=== PATIENT | male | born 1960 | race Caucasian/White ===

== ENCOUNTER → 2021-11-09 16:49 | Outpatient (CLI) | payer BC, SELFPAY ==
--- NOTE | ~2021-11-09 | MR_ITS ---
EXAMINATION: MR knee LT wo con DATE: 11/09/2021 17:56 INDICATION: Unilateral primary osteoarthritis of the left knee with worsening chronic left knee pain TECHNIQUE: Magnetic resonance imaging (MRI) of the left knee was performed without intravenous contra st. Sequences included coronal PD-weighted FSE, coronal PD-weighted FS FSE, sagittal T2-weighted FSE , sagittal PD-weighted FS FSE and axial PD weighted fat saturated FSE. COMPARISON: None. FINDINGS: Medial compartment: Complex tear at the posterior horn of the medial meniscus which includes a full-thickness radial comp onent near the posterior horn and longitudinal horizontal component extending to near the free edge i n the more medial posterior horn. Partial-thickness cartilage loss with mild chondral surface regular ity along the central to medial aspect of the medial tibial plateau with mild subarticular edema boy g the medial rim. Additional partial thickness cartilage loss with chondral surface irregularity and deep fissuring along the weightbearing medial femoral condyle with subarticular edema along the media l margin. Small region of low signal intensity likely eburnation along the medial margin of the anter ior weightbearing medial femoral condyle. Lateral compartment: Lateral meniscus is normal. Articular cartilage is normal. Patellofemoral compartment: Deep chondral fissuring involving greater than 50% the cartilage thickness without degenerative subch ondral changes along the medial patellar facet. Small region of deep chondral ulceration without dege nerative subchondral changes at the inferior aspect of the trochlear groove and inferomedial aspect o f the lateral trochlea. Ligaments and tendons: Anterior and posterior cruciate ligaments are normal. The medial collateral ligament and fibular barbara ateral ligament complex are normal. Mild distal quadriceps tendinopathy with small enthesophytes at i ts patellar insertion. Patellar tendon is normal. The visualized medial and lateral hamstring tendons as well as the iliotibial band are normal. Fluid: Moderate-sized knee joint effusion. There is a medial plical band which extends slightly across the m edial rim of the trochlea. No loose osteochondral bodies identified. Subcutaneous edema surrounding a 2.8 x 4.5 x 1.0 cm bursal fluid collection with mild internal synovitis overlying the patellar inser tion of the patellar tendon consistent with moderate prepatellar bursitis. Osseous/other: Bone alignment is normal. No fracture or pathologic marrow replacing process. IMPRESSION: 1. Complex tear at the posterior horn of the medial meniscus including a full-thickness radial compon ent near the posterior root. 2. Mild osteoarthritis with regions of moderate and high-grade chondromalacia in the medial and arredondo lofemoral compartments. 3. Moderate prepatellar bursitis. 4. Moderate-sized knee joint effusion. 5. Medial plical band which crosses the medial rim of the trochlea. Reviewed, dictated and finalized at location B. IMPRESSION: 1. Complex tear at the posterior horn of the medial meniscus including a full-t hickness radial component near the posterior root. 2. Mild osteoarthritis with regions of moderate and high-grade chondromalacia i n the medial and patellofemoral compartments. 3. Moderate prepatellar bursitis. 4. Moderate-sized knee joint effusion. 5. Medial plical band which crosses the medial rim of the trochlea.
== END ==
PROVIDERS: PCP Family Medicine; Visit Provider Orthopaedic Surgery
DX: M17.12 Unilateral primary osteoarthritis, left knee (principal); M25.462 Effusion, left knee; S83.232A Complex tear of medial meniscus, current injury, left knee, initial encounter; X58.XXXA Exposure to other specified factors, initial encounter; M70.42 Prepatellar bursitis, left knee
CPT/HCPCS: 73721

== ENCOUNTER 2021-11-18 10:15 | Outpatient (CLI) | payer BC, SELFPAY ==
--- NOTE | 2021-11-18 14:58 | ECG_ITS ---
Measurements Intervals [place] Rate: 61 P: 58 NE: 155 QRS: -8 QRSD: 110 T: 33 QT: 396 QTc: 401 Interpretive Statements SINUS RHYTHM INDETERMINATE AXIS BORDERLINE ECG NO PREVIOUS ECG AVAILABLE FOR COMPARISON Electronically Signed On 11-18-2021 15:58:11 CDT by Braden Marroquin M.D.
== END 2021-11-18 10:16 | disposition home or self-care (01) ==
PROVIDERS: PCP Family Medicine; Visit Provider Orthopaedic Surgery
DX: E78.5 Hyperlipidemia, unspecified (principal); Z01.818 Encounter for other preprocedural examination
CPT/HCPCS: 93005

== ENCOUNTER 2021-11-25 01:14 | Day surgery (SDC) | payer BC, SELFPAY ==
[2021-11-18 09:45] VITALS: BMI 33.5
--- NOTE | 2021-11-18 09:55 | PC.NURSE ---
Report to the Outpatient Waiting Room, entrance under the green pavilion located off [facility], at time 11:00 on date 11/25/21. OR Time: 1:00. - You and your visitor will be asked a series of questions to screen for COVID 19 for your protection. - A mask is required within the hospital. One visitor will be allowed to accompany the patient into the hospital. Patients visitor will be instructed to remain with patient at all times or leave the building. We will allow the visitor to come back to the postoperative area when patient is ready. Preoperative COVID Testing Requirements: TO BRING COPY OF CARD No COVID Test needed if: (proof is required; if not received patient will have Rapid Test prior to entry) - Patient has received COVID Vaccine at least 14 days prior to procedure date or - Patient has positive COVID test result within last 90 days of surgery date. COVID Test needed if above criteria is not met Patients may have clear liquids (water, carbonated beverages, clear teas, apple juice) until 3 hours prior to surgery (10:00) with a maximum of 20 ounces. - No food from midnight until time of surgery Take the following medications with a SIP of water the morning of surgery: NONE Medications to discontinue per physician: VITAMINS/SUPPLEMENTS Date to take last dose: 11/21/21 STOP TAKING ASPIRIN 11/[address] WU Please no make-up, nail latvian, hairspray, perfume, deodorant, or body powder the day of surgery. No jewelry (including any body piercings) or valuables the day of surgery, leave them at home. Please take a shower or bath the night before, or the morning of, surgery with an antibacterial soap. Wear comfortable, loose fitting clothing. - Jewelry must be removed prior to entering the operating room. Rings and piercings that are not removed may be cut off. - The hospital will not accept responsibility for valuables. - Please leave all valuables, including medications, at home the day of surgery. If you are going home after surgery, a licensed transfer driver must drive you home. - NO public transportation without another adult. - We recommend that an adult stay with you for 24 hours following discharge. - We also recommend that you do not drive, make important decision, drink alcoholic beverages, or take any drugs that were not prescribed by your health care provider for at least 24 hours after your discharge time. Follow any additional instructions given to you from your surgeon. Telephone instructions given to MALLIKA BRANCH and asked if any additional questions and then verbalized understanding. Patient advised to call surgeon office or pre surgery nurse liaison [phone] if any additional questions.
--- NOTE | 2021-11-24 13:05 | WPDANESEPPF ---
Anes - Initial Pre Proc Eval Procedure: Operation Date: 11/25/21 13:00 Proposed Procedures p Left Knee Arthroscopic Partial Medial Meniscectomy - Yvon Hall MD Date/Time: 11/24/21 13:05 Surgeon: Yvon Hall MD Pre Op Diagnosis: left knee medial meniscus tear Patient Data Age: 61 Gender: M Height: 1.98 m Weight: 131.54 kg Allergies Allergy/AdvReac Type Severity Reaction Status Date / Time neomycin Allergy Severe Swelling Verified 11/18/21 09:42 of the Eye ezetimibe Allergy Unknown muscle and Verified 11/18/21 09:42 leg aches, dizziness Home Medications Medication Instructions Recorded Confirmed Type aspirin 81 mg tablet,delayed 81 mg PO DAILY 07/07/19 11/25/21 History release niacin 1,000 mg tablet,extended 500 mg PO .COMPLEX tablet 09/07/20 11/25/21 History release simvastatin 20 mg tablet See Rx Instructions .ROUTE 02/14/21 11/25/21 Rx .COMPLEX #90 tablet omega-3 acid ethyl esters 1 gram See Rx Instructions .ROUTE 04/18/21 11/25/21 Rx capsule .COMPLEX #360 cap needle (disp) 23 gauge 23 gauge x See Rx Instructions .ROUTE 07/05/21 11/18/21 Rx 1 .COMPLEX #7 ea syringe with needle 3 mL 21 gauge See Rx Instructions .ROUTE 08/25/21 11/18/21 Rx x 1 .COMPLEX #26 ea testosterone cypionate 200 mg/mL 100 mg IM .COMPLEX #3 ml 09/02/21 11/25/21 Rx intramuscular oil antiarthritic combination no.2 900 900 mg PO DAILY 11/11/21 11/25/21 History mg tablet Patient hx anesthesia problems: none Family hx anesthesia problems: none Results Review: All pre-operative results and documents have been reviewed as part of the pre-operative evaluation. [facility] Past Medical History Medical History Arthritis of left hip Benign labile hypertension Elevated prolactin level Enlarged prostate without lower urinary tract symptoms (luts) Gastro-esophageal reflux disease without esophagitis Hypogonadism in male Mixed hyperlipidemia Surgical History Surgical History H/O adenoidectomy H/O eye surgery H/O medial meniscus repair of right knee Hx of tonsillectomy Family History Family History Father Diabetes mellitus Hypertension Family history of elevated blood lipids Grandparent Diabetes mellitus Family history of cardiovascular disease Cerebrovascular accident Mother Hypertension Family history of cardiovascular disease Acute myocardial infarction Family history of Alzheimer's disease Family history of coronary artery disease Social History Social History Smoking packs per day: 1 Smoking cigarettes per day: 20.0 Years smoked: 10 Smoking pack-years: 10.00 Smoking status: Former smoker Tobacco type: cigarettes Smoking end date: 05/06/95 Alcohol intake: current Drinks per week: 2 Substance use: never Substance use type: does not use Living arrangements: with family Spiritual care concerns: No Anes - Eval Final PreProcedure Day of Procedure 11/24/21 13:05 Patient weight: obese Heart: regular rate and rhythm Lungs: clear to auscultation and normal air movement Airway: Mallampati scale class 1 Neurological: alert and oriented Last oral intake: >/= 8 hours ASA classification: III Emergent: no Anesthetic plan: proceed Anesthesia type and monitoring: general LMA and standard monitoring Results Review: All pre-operative results and documents have been reviewed as part of the pre-operative evaluation. Informed Consent: The patient's anesthetic plan and its attendant risks and benefits were discussed with the patient/family/POA. Questions were solicited and answers provided to the satisfaction of the patient/family/POA.
[2021-11-25] VITALS (7 sets, daily range): BP systolic 124–144; BP diastolic 77–93; PULSE 67–92; RESP 12–16; TEMP 36.2; O2SAT 96–100
[2021-11-25] MEDS: ACETAMINOPHEN 500 MG TABLET 1000 MG PO (11:21)
[2021-11-25] MEDS: LACTATED RINGERS 1,000 ML 30 ML IV CONT ×2 (11:52→14:18)
[2021-11-25] MEDS: KETOROLAC 15 MG/ML VIAL (*BKC) IV PUSH (11:53)
--- NOTE | 2021-11-25 13:07 | P.OP_ITS ---
Procedure Note - Detailed Date of Procedure 11/25/21 Pre-op Diagnosis Left knee medial meniscus tear Post-op Diagnosis Same Procedure Performed Arthroscopic partial medial meniscectomy, left knee. Surgeon Yvon Hall MD [employer] Reactor Engineer Shilpa Chaudhry PA-C Anesthesia General Findings Significant posterior horn meniscus tear with a large radial component. Consistent with the MRI findings. Mild arthritis in the medial compartment. Lateral compartment and ACL normal. Patellofemoral moderate chondromalacia. Medial femur chondromalacia grade 2, medial tibia grade 2. Lateral femur chondromalacia grade 0, lateral tibia grade 0. Patellar grade 2, trochlea grade 2/3. Description of Procedure The patient was identified and the surgical site confirmed and signed in the preoperative holding area. Antibiotics were started per protocol. He was brought to the operative room and transferred to the OR table. A general anesthetic was administered. Supine position with the operative lower extremity position in the leg ko after placement of a well padded tourniquet. The leg support was lowered and the contralateral limb was supported with a soft bolster. The knee was prepped and draped in the usual sterile fashion. A time-out was performed. The portal sites were marked and infiltrated with 0.5% Marcaine 20 mL. The limb was exsanguinated and the tourniquet inflated to 300 mL Hg. Standard inferolateral and inferomedial portals were established. Inflow was obtained with the saline pump. The camera was introduced. Diagnostic inspection of the joint was accomplished. The meniscus was debrided with the arthroscopic shaver and punches until stable. The radiofrequency probe was also used for further d?bridement, and stabilization of the remaining meniscus. The arthroscopic instruments were removed. The tourniquet released and wounds closed with subcutaneous 4-0 Monocryl absorbable suture. Steri strips and a sterile dressing were applied. A light elastic wrap was placed. The patient was extubated and brought to the recovery room in stable condition. Estimated Blood Loss 5 Drains No Complications No immediate complications Condition Stable Disposition PACU
--- NOTE | 2021-11-25 13:07 | WPDHPUPDATE1 ---
History and Physical Update Update Date/Time: 11/25/21 13:07 History and Physical has been reviewed, including an updated exam of the patient. There are NO changes in the patient's condition. Risks, benefits, and alternatives have been discussed and questions answered. Patient agrees to proceed with procedure.
[2021-11-25] MEDS: ceFAZolin 3 GM/D5W 100 ML 100 ML IVPB (13:10)
== END 2021-11-25 15:40 | disposition home or self-care (01) ==
PROVIDERS: PCP Family Medicine; Visit Provider Orthopaedic Surgery
PROC: (CPT 29870; principal; 2021-11-25 13:00)
DX: M23.322 Other meniscus derangements, posterior horn of medial meniscus, left knee (principal); M22.42 Chondromalacia patellae, left knee; I10 Essential (primary) hypertension; N40.0 Benign prostatic hyperplasia without lower urinary tract symptoms; K21.9 Gastro-esophageal reflux disease without esophagitis; E78.2 Mixed hyperlipidemia; Z79.82 Long term (current) use of aspirin; Z79.890 Hormone replacement therapy; Z87.891 Personal history of nicotine dependence; E66.9 Obesity, unspecified; Z68.33 Body mass index [BMI] 33.0-33.9, adult
CPT/HCPCS: 29881; 93005; A9270; J0690; J1100; J1885; J2250; J2405; J2704; J3010; J7120

== ENCOUNTER 2022-03-14 07:06 | Outpatient (CLI) | payer BC, SELFPAY ==
--- NOTE | 2022-03-14 | ECG_ITS ---
Measurements Intervals [place] Rate: 59 P: 55 [place]: 158 QRS: 5 QRSD: 104 T: 32 QT: 428 QTc: 426 Interpretive Statements SINUS BRADYCARDIA WITH OCCASIONAL SUPRAVENTRICULAR PREMATURE COMPLEXES COMPARED TO ECG 11/18/2021 15:02:31 SINUS BRADYCARDIA NOW PRESENT Electronically Signed On 03-14-2022 16:30:28 CDT by Betsy Goins M.D.
[2022-03-14 07:46] LABS: Hematocrit 43.8 % (42.0-52.0); Hemoglobin 14.6 g/dL (14.0-18.0)
[2022-03-14 07:55] LABS: Albumin Level 4.1 g/dL (3.5-5.1); Estimated Glomerular Filt Rate > 60; Glucose 197 mg/dL (65-110)
[2022-03-15 20:53] LABS: Hemoglobin A1C 5.5 % (<5.7)
== END 2022-03-14 07:07 | disposition home or self-care (01) ==
PROVIDERS: PCP Physician Assistant; Visit Provider Orthopaedic Surgery
DX: M17.12 Unilateral primary osteoarthritis, left knee (principal); I10 Essential (primary) hypertension; K21.9 Gastro-esophageal reflux disease without esophagitis; E78.2 Mixed hyperlipidemia; R73.01 Impaired fasting glucose; R94.31 Abnormal electrocardiogram [ECG] [EKG]
CPT/HCPCS: 36415; 82040; 82565; 82947; 83036; 85014; 85018; 93005

== ENCOUNTER 2022-03-15 15:31 | Outpatient (CLI) | payer BC, SELFPAY ==
--- NOTE | ~2022-03-15 | CT_ITS ---
EXAMINATION: CT LE RT wo con DATE: 03/15/2022 16:08 INDICATION: Right knee osteoarthritis. Preop planning. TECHNIQUE: Computed tomography (CT) of the right lower limb was performed without intravenous contras t. Automated exposure control and iterative reconstruction technique were employed. The dose-length p roduct was 1819.15 mGy-cm. COMPARISON: None FINDINGS: Right hip demonstrate normal bone alignment. No fracture. There is moderate right hip osteo arthritis. Right knee demonstrates severe osteoarthritis of medial compartment, moderate osteoarthrit is of patellofemoral compartment, and mild osteoarthritis of lateral compartment. There is a small kn ee joint effusion with loose bodies. There is heterotopic ossification posterior to medial malleolus from old injury. Talar dome is normal. IMPRESSION: 1. Severe right knee osteoarthritis. 2. Small right knee joint effusion with loose bodies. 3. Moderate right hip osteoarthritis. Reviewed, dictated and finalized at location A.
== END 2022-03-15 15:32 | disposition home or self-care (01) ==
PROVIDERS: PCP Physician Assistant; Visit Provider Orthopaedic Surgery
DX: M17.11 Unilateral primary osteoarthritis, right knee (principal); M25.461 Effusion, right knee; M23.41 Loose body in knee, right knee; M16.11 Unilateral primary osteoarthritis, right hip
CPT/HCPCS: 73700

== ENCOUNTER 2022-04-19 07:47 | Outpatient (CLI) | payer BC, SELFPAY ==
[2022-04-19 09:03] LABS: Basophils Absolute Auto 0.1 K/mm3 (0.0-0.1); Basophils Percent Auto 0.9 % (0.2-1.2); Eosinophils Absolute Auto 0.2 K/mm3 (0-0.3); Eosinophils Percent Auto 4.1 % (0-4.4); Hematocrit 45.7 % (42.0-52.0); Hemoglobin 15.5 g/dL (14.0-18.0); Immature Granulocyte Absolute 0.03 K/mm3 (0.00-0.031); Immature Granulocyte Percent A 0.5 % (0-0.5); Lymphocytes Percent Auto 34.1 % (18.3-44.2); Mean Corpuscular HGB Conc 33.9 g/dl (32-36); Mean Corpuscular Hemoglobin 29.9 pg (26-34); Mean Corpuscular Volume 88.2 fl (80-100); Mean Platelet Volume 9.4 fl (7.4-10.4); Monocytes Absolute Auto 0.6 K/mm3 (0.1-0.6); Monocytes Percent Auto 10.1 % (2.6-8.5); Neutrophils Absolute Auto 2.8 K/mm3 (1.3-6.7); Neutrophils Percent Auto 50.3 % (45.5-73.1); Platelet Count Result 274 k/mm3 (150-375); Red Blood Count 5.18 M/mm3 (4.6-6.20); Red Cell Distribution Width 11.7 % (11.5-14.5); White Blood Count 5.6 K/mm3 (4.5-10.0)
[2022-04-19 09:25] LABS: Urine Cotinine NEGATIVE
== END 2022-04-19 07:48 | disposition home or self-care (01) ==
PROVIDERS: PCP Family Medicine; Visit Provider Orthopaedic Surgery
DX: Z01.818 Encounter for other preprocedural examination (principal); M17.11 Unilateral primary osteoarthritis, right knee
CPT/HCPCS: 80307; 85025; 87081

== ENCOUNTER 2022-05-16 00:32 | Day surgery (SDC) | payer BC, SELFPAY ==
--- NOTE | 2022-04-19 07:54 | PC.NURSE ---
PRE-OP INSTRUCTIONS, PLEASE READ CAREFULLY Report to the Outpatient Waiting Room, entrance under the green pavilion located off [facility], at time _0600_ on date _05/16/22_. OR Time:_0730_. PACK A SMALL OVERNIGHT BAG AND LEAVE IN THE CAR ALONG WITH YOUR WALKER Time changes happen often and if your time is changed the preop area will call you the afternoon before. - You and your visitor will be asked to self-screen and do not enter if you have any COVID symptoms. - A mask is required within the hospital. - Only one visitor and NO children visitors are allowed at this time. - The patient visitor is requested to leave or wait in car when not with patient due to restrictions. - VISITING HOURS 10AM-8PM, PARK IN FRONT PARKING LOT AND USE HOSPITAL ENTRANCE 1 Patients may have clear liquids (water, carbonated beverages, clear teas, apple juice) until 3 hours prior to surgery (0430 AM) with a maximum of 20 ounces. - No food from midnight until time of surgery Take the following medications with a SIP of water the morning of surgery: _NONE_ Medications to discontinue per DR. WU - _ASPIRIN 7 DAYS PRIOR TO SURGERY, Date to take last dose 05/08/22_ Medications to discontinue per ANESTHESIA - _VITAMINS & SUPPLEMENTS - 3 DAYS PRIOR TO SURGERY, Date to take last dose 05/12/22_ Please no deodorant, or body powder the day of surgery. No jewelry (including any body piercings) or valuables the day of surgery, leave them at home. Please take a shower or bath the night before, or the morning of, surgery with an antibacterial soap. Wear comfortable, loose fitting clothing. - Jewelry must be removed prior to entering the operating room. Rings and piercings that are not removed may be cut off. - The hospital will not accept responsibility for valuables. - Please leave all valuables, including medications, at home the day of surgery. If you are going home after surgery, a licensed high lift driver must drive you home. - NO public transportation without another adult. - We recommend that an adult stay with you for 24 hours following discharge. - We also recommend that you do not drive, make important decision, drink alcoholic beverages, or take any drugs that were not prescribed by your health care provider for at least 24 hours after your discharge time. Follow any additional instructions given to you from your surgeon. If you or anyone in your household have experienced Covid symptoms in the past week, please notify your surgeon or the nurse liaison at the phone number below for possible testing. Telephone instructions given to _PT_and asked if any additional questions and then verbalized understanding. Patient advised to call surgeon office or pre surgery nurse liaison [phone] if any additional questions.
[2022-04-19 08:14] VITALS: BP 154/80; PULSE 72; RESP 20; TEMP 36.7; O2SAT 98; BMI 33.9
[2022-05-16] VITALS (12 sets, daily range): BP systolic 126–153; BP diastolic 69–89; PULSE 67–86; RESP 12–18; TEMP 36–36.9; O2SAT 95–99
--- NOTE | ~2022-05-16 | XR_ITS ---
EXAMINATION: XR knee RT 2V DATE: 05/16/2022 10:03 INDICATION: Total right knee arthroplasty. Postop. TECHNIQUE: 2 views of right knee were obtained. COMPARISON: Right knee radiographs 09/27/2020 FINDINGS: There is a total right knee arthroplasty with patellar resurfacing in near-anatomic alignme nt. No fracture. There is gas in the knee joint and soft tissues, consistent with recent surgery. IMPRESSION: 1. Total right knee arthroplasty in near-anatomic alignment. Reviewed, dictated and finalized at location A.
[2022-05-16] MEDS: ACETAMINOPHEN 500 MG TABLET 1000 MG PO (06:31)
[2022-05-16] MEDS: LACTATED RINGERS 1,000 ML 30 ML IV CONT (07:00)
[2022-05-16] MEDS: TRANEXAMIC ACID 1,000MG/ISO100 1,000 MG/100 ML BAG 200 MG IVPB (07:02)
--- NOTE | 2022-05-16 07:03 | WPDANESEPPF ---
Anes - Initial Pre Proc Eval Procedure: Operation Date: 05/16/22 07:30 Proposed Procedures p Right Custom Total Knee Arthroplasty - Yvon Hall MD Date/Time: 05/16/22 07:03 Surgeon: Yvon Hall MD Pre Op Diagnosis: primary OA right knee Patient Data Age: 61 Gender: M Height: 1.98 m Weight: 133.1 kg Last Vital Signs Temp 36.7 C 04/19/22 08:14 Pulse 72 04/19/22 08:14 Resp 20 04/19/22 08:14 BP 154/80 H 04/19/22 08:14 Pulse Ox 98 04/19/22 08:14 O2 Del Method Room Air 04/19/22 08:14 Allergies Allergy/AdvReac Type Severity Reaction Status Date / Time neomycin Allergy Severe Swelling Verified 05/16/22 06:20 of the Eye ezetimibe AdvReac Intermediate muscle and Verified 05/16/22 06:28 leg aches, dizziness Home Medications Medication Instructions Recorded Confirmed Type niacin 1,000 mg tablet,extended 500 mg PO .COMPLEX 09/07/20 05/16/22 History release syringe with needle 3 mL 21 gauge See Rx Instructions .Route 08/25/21 04/19/22 Rx x 1 (BD Luer-Kandace Syringe) .COMPLEX #26 ea antiarthritic combination no.2 900 900 mg PO DAILY 11/11/21 05/16/22 History mg tablet (glucosamine-chondroitin) aspirin 81 mg tablet,delayed 81 mg PO .every other day 12/08/21 05/16/22 History release testosterone cypionate 200 mg/mL 100 mg (0.5 mL) IM .COMPLEX #3 mL 01/30/22 05/16/22 Rx intramuscular oil (Depo-Testosterone) Ez Tears 1 tab-cap QAM 04/19/22 05/16/22 History omega-3 acid ethyl esters 1 gram See Rx Instructions .Route 04/27/22 05/16/22 Rx capsule .COMPLEX #360 caps needle (disp) 23 gauge 23 gauge x See Rx Instructions .Route 05/08/22 Rx 1 (Hypodermic [place]) .COMPLEX #7 ea simvastatin 20 mg tablet See Rx Instructions .Route 05/08/22 05/16/22 Rx .COMPLEX #90 tabs Patient hx anesthesia problems: none Family hx anesthesia problems: other (mother slow to awaken) Results Review: All pre-operative results and documents have been reviewed as part of the pre-operative evaluation. [facility] Past Medical History Medical History Arthritis of left hip Benign labile hypertension Elevated prolactin level Enlarged prostate without lower urinary tract symptoms (luts) Gastro-esophageal reflux disease without esophagitis Hypogonadism in male Mixed hyperlipidemia Surgical History Surgical History H/O adenoidectomy H/O eye surgery H/O medial meniscus repair of right knee History of meniscectomy of left knee (~11/25/21) Medial Hx of tonsillectomy Family History Family History Father Diabetes mellitus Hypertension Family history of elevated blood lipids Grandparent Diabetes mellitus Family history of cardiovascular disease Cerebrovascular accident Mother Hypertension Family history of cardiovascular disease Acute myocardial infarction Family history of Alzheimer's disease Family history of coronary artery disease Social History Social History Smoking packs per day: 1 Smoking cigarettes per day: 20.0 Years smoked: 10 Smoking pack-years: 10.00 Smoking status: Former smoker Tobacco type: cigarettes Second hand tobacco smoke exposure: No Smoking end date: 05/06/95 Additional smoking assessment comments: PT DENIES ALL FORMS OF TOBACCO USE Alcohol intake: current Drinks per week: 2 Substance use: never Substance use type: does not use Living arrangements: with family Spiritual care concerns: No Anes - Eval Final PreProcedure Day of Procedure 05/16/22 07:03 Patient weight: obese Heart: regular rate and rhythm Lungs: clear to auscultation Airway: Mallampati scale class II Neurological: alert and oriented Last oral intake: >/= 8 hours ASA classification: II Jade
--- NOTE | 2022-05-16 07:24 | WPDHPUPDATE1 ---
History and Physical Update Update Date/Time: 05/16/22 07:24 History and Physical has been reviewed, including an updated exam of the patient. There are NO changes in the patient's condition. Risks, benefits, and alternatives have been discussed and questions answered. Patient agrees to proceed with procedure.
[2022-05-16] MEDS: ceFAZolin 3 GM/D5W 100 ML 100 ML IVPB (07:28)
--- NOTE | 2022-05-16 07:29 | WPDANESPNB ---
Anes - Peripheral Nerve Block Date/Time: 05/16/22 07:29 I have discussed with the patient/family/POA the placement of a peripheral nerve block for post-operative pain management, including associated risks, benefits, complications, and side effects. Alternative methods of post-operative analgesia were detailed. Questions were solicited and answers provided to the satisfaction of the patient/family/POA. Time-Out: A pre-procedural Time-Out was completed immediately before starting the procedure and confirmed: Patient Identification, Site, Procedure, Patient Position and the Availability of Requisite Equipment. Clinical Indications: Acute post-operative pain management requested by the operative surgeon. Nerve Block Insertion Note Anes-nerve block: adductor canal right Patient position: supine Skin prep: chlorhexidine Needle: 22 gauge, stimulating, insulated echogenic needle. Needle length: 80 mm Technique: ultrasound Technique comment: mid 2mg fent 100mcg Injectate: bupivacaine 0.5% with epi 5 mcg/ml (30ml no epi) Observations: tolerated well Complications: none Procedure start time:: 716 Procedure end time:: 723
--- NOTE | 2022-05-16 11:22 | ADMGEN ---
This patient, Vincent Davis, was admitted to Medical Room 245-. Patient/family oriented to hospital policies and general routines including ID bracelet, bed and alarms, visiting hours, pain management, procedures, bathroom and other care routines, personal items, smoking policy, room service/diet, and visiting hours. Information on how to activate the Rapid Response Team has been discussed. Patient/Family are encouraged to report perceived risks to care and to ask questions if they do not understand what they are told or what they should do.
[2022-05-16] MEDS: ONDANSETRON INJ 4 MG/2 ML VIAL IV PUSH (12:35)
[2022-05-16] MEDS: SODIUM CHLORIDE 0.9% IV 1,000 ML 125 ML IV CONT (12:36)
--- NOTE | 2022-05-16 16:33 | P.OP_ITS ---
Procedure Note - Detailed Date of Procedure 05/16/22 Pre-op Diagnosis primary OA right knee Post-op Diagnosis Same Procedure Performed Total knee arthroplasty, right knee. Surgeon Yvon Hall MD Spray Crew Shilpa Chaudhry PA-C Anesthesia General and Regional (Subsartorial block.) Findings Custom knee. Good bone quality. No releases required. Description of Procedure Preoperative antibiotics were given. The limb was prepped and draped in the usual sterile fashion with a well-padded tourniquet high on the thigh. The limb was exsanguinated and the tourniquet inflated to 300 mmHg. A longitudinal incision was created just medial to the patella. A trivector approach to the knee was performed. Arthrotomy was taken down through the joint capsule. No significant releases were initially taken. The femur was exposed and the F1 jig was applied. The coring tool was used to remove the cartilage for the F2 jig to sit flush with the bone. The jig was pinned and the distal cut carefully taken. Caliper measurements confirmed appropriate bony resections according to the preoperative templated plan. The F4 cutting jig for the femur was applied, at the standard rotation. The AP and anterior chamfer cuts were taken. The F5 jig was applied and the posterior chamfer cuts were taken. The tibia was prepared using the T1 jig, after removing cartilage for the jig contact points. Proper alignment was checked with the alignment grace. The tibia was cut using the T1u guide. Gap balancing was performed. Gap measurements were taken and the knee was trialed. Excellent alignment and soft tissue balancing was confirmed. The posterior cruciate ligament was recessed along the proximal tibia. The patella was cut for resurfacing. Three lug holes were drilled. Meniscal remnants were removed. The trial components were assembled. Excellent range of motion and proper soft tissue balancing were confirmed throughout the full range of motion. Patellar tracking was excellent. The knee was copiously irrigated periodically throughout the procedure. The real implants were cemented into position. Excess cement was carefully removed. The wound was closed in layers with interrupted #1 Vicryl suture, 2-0 strata fix suture, 0 strata fix suture, 2-0 strata fix suture. Steri-Strips placed on the skin with the knee flexed. Sterile bulky dressing applied. The patient was brought to the recovery room in stable condition. There were no complications. Physician assistant sales manager, Shilpa Chaudhry PA-C, required for surgery; including patient positioning, draping, tissue retraction, maintaining instrument position, cement removal, wound closure, and dressing placement. Implants Conformis Custom total knee arthroplasty. Cemented. Cruciate retaining. 6A insert. Round cemented patella. Estimated Blood Loss -100.0 Drains No Complications No immediate complications Condition Stable Disposition PACU [facility] Billing Surgery - Charge Forward: Surgery Billing
[2022-05-16] MEDS: ceFAZolin 2 GM/D5W 50 ML 2 GM/50 ML BAG IVPB ×2 (16:35→23:05)
[2022-05-16] MEDS: ASPIRIN 81 MG ENTERIC TABLET PO (16:39)
[2022-05-16] MEDS: SENNA/DOCUSATE SODIUM TABLET 2 TAB PO (16:39)
[2022-05-16] MEDS: SIMVASTATIN 20 MG TABLET PO (20:30)
[2022-05-16] MEDS: FAMOTIDINE 20 MG TABLET PO (20:30)
[2022-05-16] MEDS: ARTIFICIAL TEARS OPHTH SOLN 15 ML BOTTLE 1 DROP EACH EYE (23:04)
[2022-05-17 00:28] VITALS: BP 113/46; PULSE 67; RESP 20; TEMP 36.4; O2SAT 96
[2022-05-17 04:42] VITALS: BP 129/73; PULSE 72; RESP 20; TEMP 36.3; O2SAT 97
[2022-05-17 05:30] LABS: Basophils Percent Auto 0.3 % (0.2-1.2); Eosinophils Percent Auto 0.2 % (0-4.4); Hematocrit 39.5 % (42.0-52.0); Immature Granulocyte Absolute 0.06 K/mm3 (0.00-0.031); Immature Granulocyte Percent A 0.4 % (0-0.5); Lymphocytes Absolute Auto 1.83 K/mm3 (0.9-3.2); Lymphocytes Percent Auto 12.1 % (18.3-44.2); Mean Corpuscular HGB Conc 32.9 g/dl (32-36); Mean Corpuscular Hemoglobin 29.5 pg (26-34); Mean Corpuscular Volume 89.8 fl (80-100); Mean Platelet Volume 9.7 fl (7.4-10.4); Monocytes Absolute Auto 1.3 K/mm3 (0.1-0.6); Monocytes Percent Auto 8.5 % (2.6-8.5); Neutrophils Absolute Auto 11.9 K/mm3 (1.3-6.7); Neutrophils Percent Auto 78.5 % (45.5-73.1); Platelet Count Result 246 k/mm3 (150-375); Red Cell Distribution Width 11.5 % (11.5-14.5); White Blood Count 15.1 K/mm3 (4.5-10.0)
[2022-05-17 05:34] LABS: Anion Gap 6 mmol/L (8-16); Blood Urea Nitrogen 12 mg/dL (9-20); Calcium 8.2 mg/dL (8.4-10.2); Carbon Dioxide 30 mmol/L (22-30); Chloride 102 mmol/L (98-107); Estimated CRCL calculation 114 ml/min; Estimated Glomerular Filt Rate > 60; Glucose 116 mg/dL (65-110); Potassium 3.9 mmol/L (3.4-5.0); Sodium 138 mmol/L (137-145)
[2022-05-17] MEDS: CYCLOBENZAPRINE HCL 10 MG TABLET PO (07:01)
[2022-05-17] MEDS: ceFAZolin 2 GM/D5W 50 ML 2 GM/50 ML BAG IVPB (07:37)
--- NOTE | 2022-05-17 08:38 | PM.DS ---
DS: Admitting Diagnosis Discharge Date 05/17/22 Admitting Diagnosis OA knee Right DS: Discharge Diagnosis Discharge Diagnosis (1) Status post total right knee replacement: Code(s): Z96.651 - Presence of right artificial knee joint Status: Acute Assessment and Plan: Postop day 1: Left total knee arthroplasty. Patient tolerated procedure well. No complications. Pain manageable with pain medication. No numbness or tingling. We had a lengthy discussion regarding postoperative wound care, limitations, expectations, and exercises. Patient shows good understanding. He has had initial physical therapy and is tolerating it well. DVT prophylaxis: 81 mg baby aspirin b.i.d. for 14 days. Pain medication: Percocet. Prednisone. Patient has followup appointment with Dr. Hall in 3 weeks. DS: Summary Hospital Course Reason for hospitalization: Total knee arthroplasty Hospital Course: Patient tolerated procedure well. Has had initial PT/OT. No complications. Pain well managed. Status at Discharge Functional status at discharge: uses cane/walker Overall status at discharge: patient is progressing back to baseline Time Spent with Patient Time attestation: Total time spent providing and/or coordinating discharge services: Exam Narrative: Overweight 61 y/o Male. Resting comfortably in chair. No acute distress. A&O x3. Wearing compression socks bilaterally. Dressing intact with no drainage. Moderate swelling. Small area of ecchymosis. No erythema. No hematoma. Good early range of motion. Calf nontender. Neurologic status intact. No varicosities. Distal pulses palpable. DS: Data Data Completed and Pending Labs on day of discharge: Labs from last 24 hours 05/17/22 05/17/22 04:50 04:50 WBC 15.1 H RBC 4.40 L Hgb 13.0 L Hct 39.5 L MCV 89.8 MCH 29.5 MCHC 32.9 RDW 11.5 Plt Count 246 MPV 9.7 Immature Gran % (Auto) 0.4 Neut % (Auto) 78.5 H Lymph % (Auto) 12.1 L Centre % (Auto) 8.5 Eos % (Auto) 0.2 Baso % (Auto) 0.3 Lymph # (Auto) 1.83 Centre # (Auto) 1.3 H Eos # (Auto) 0.0 Baso # (Auto) 0.0 Abs Immat Gran (auto) 0.06 H Absolute Neuts (auto) 11.9 H Absolute Nucleated RBC 0.0 Nucleated RBC % 0.0 Sodium 138 Potassium 3.9 Chloride 102 Carbon Dioxide 30 Anion Gap 6 L BUN 12 Creatinine 0.90 Estim Creat Clear Calc 114 Estimated GFR > 60 Glucose 116 H Calcium 8.2 L Discharge Plan Discharge Patient Disposition: Home, Self-Care Discharge Instructions: See green instruction sheet Stand Alone Forms: General Discharge Instructions Follow-up/Referrals: Shilpa Chaudhry PA [Physician Senior Mobile Application Developer] - Discharge Medications: New prednisone 5 mg tablet 5 mg PO DAILY 21 Days Qty: 21 0RF aspirin 81 mg tablet,delayed release (DR/EC) 81 mg PO BID 14 Days Qty: 28 0RF oxycodone-acetaminophen 5-325 mg tablet 1 - 2 tablet PO Q4-6H MDD 6 PRN (Reason: pain) Qty: 30 0RF Continued niacin 1,000 mg tablet extended release 500 mg PO .COMPLEX Label Comments: HS Rx Instructions: 500 mg PO ; aspirin 81 mg tablet,delayed release (DR/EC) 81 mg PO .every other day Label Comments: EVERY OTHER DAY AM glucosamine-chondroitin 900 mg tablet 900 mg PO DAILY Label Comments: 2 TABS QAM Ez Tears 1 tab-cap QAM BD Luer-Kandace Syringe 3 mL 21 gauge x 1 syringe See Rx Instructions .ROUTE .COMPLEX Qty: 26 3RF Dose Instruction: USE 1 SYRINGE EVERY 2 WEEKS Rx Instructions: USE 1 SYRINGE EVERY 2 WEEKS testosterone cypionate [Depo-Testosterone] 200 mg/mL oil 100 mg IM .COMPLEX Qty: 3 1RF Rx Instructions: 100 mg IM gM q 2 weeks; for 3 mos ; omega-3 acid ethyl esters 1 gram capsule See Rx Instructions .ROUTE .COMPLEX Qty: 360 3RF Dose Instruction: TAKE 2 CAPSULES TWICE A DAY DIRECTED WITH FOOD Rx Instru
[2022-05-17] MEDS: SENNA/DOCUSATE SODIUM TABLET 2 TAB PO (08:43)
[2022-05-17] MEDS: polyethylene glycoL 3350 17 GM POWD.PACK PO (08:43)
[2022-05-17] MEDS: FAMOTIDINE 20 MG TABLET PO (08:43)
[2022-05-17] MEDS: ASPIRIN 81 MG ENTERIC TABLET PO (08:44)
[2022-05-17] MEDS: predniSONE 5 MG TABLET PO (08:44)
[2022-05-17] MEDS: oxyCODONE HCL (*CRX) 5 MG TAB IR PO (08:50)
--- NOTE | 2022-05-17 09:08 | WPDANESPN ---
Anes - Prog Note Post-Op Date/Time: 05/17/22 08:39 Cardiovascular status: normal Respiratory status: normal Airway patency: baseline Mental status: baseline Post-Op hydration status: normal Vital Signs: Last Vital Signs Temp 97.4 F L 05/17/22 04:42 Pulse 72 05/17/22 04:42 Resp 20 05/17/22 04:42 BP 129/73 05/17/22 04:42 Pulse Ox 97 05/17/22 04:42 O2 Del Method Room Air 05/17/22 07:44 O2 Flow Rate 6 05/16/22 10:20 Pain Score (VAS): 5 I/O: Intake & Output 05/16/22 05/17/22 05/17/22 23:59 07:59 15:59 Intake Total 1220 Output Total 950 900 500 Balance 270 -900 -500 Laboratory Tests 05/17/22 04:50 05/17/22 04:50 05/17/22 05/17/22 04:50 04:50 WBC 15.1 H RBC 4.40 L Hgb 13.0 L Hct 39.5 L MCV 89.8 MCH 29.5 MCHC 32.9 RDW 11.5 Plt Count 246 MPV 9.7 Immature Gran % (Auto) 0.4 Neut % (Auto) 78.5 H Lymph % (Auto) 12.1 L [place] % (Auto) 8.5 Eos % (Auto) 0.2 Baso % (Auto) 0.3 Lymph # (Auto) 1.83 [place] # (Auto) 1.3 H Eos # (Auto) 0.0 Baso # (Auto) 0.0 Abs Immat Gran (auto) 0.06 H Absolute Neuts (auto) 11.9 H Absolute Nucleated RBC 0.0 Nucleated RBC % 0.0 Sodium 138 Potassium 3.9 Chloride 102 Carbon Dioxide 30 Anion Gap 6 L BUN 12 Creatinine 0.90 Estim Creat Clear Calc 114 Estimated GFR > 60 Glucose 116 H Calcium 8.2 L Post-procedural complaints: nausea Patient Feedback: Patient satisfied with anesthetic care.
[2022-05-17 10:25] VITALS: BP 111/53; PULSE 84; RESP 20; TEMP 37.3; O2SAT 95
== END 2022-05-17 11:18 | disposition home or self-care (01) ==
LOC: ANHSURGERY 09:51 → ANH2MED 11:18
PROVIDERS: Physician Assistant Surgical; PCP Family Medicine; Visit Provider Orthopaedic Surgery
PROC: (CPT 27447; principal; 2022-05-16 07:30)
DX: M17.11 Unilateral primary osteoarthritis, right knee (principal); G89.18 Other acute postprocedural pain; I10 Essential (primary) hypertension; N40.0 Benign prostatic hyperplasia without lower urinary tract symptoms; K21.9 Gastro-esophageal reflux disease without esophagitis; E78.2 Mixed hyperlipidemia; E29.1 Testicular hypofunction; Z79.82 Long term (current) use of aspirin; Z79.890 Hormone replacement therapy; Z87.891 Personal history of nicotine dependence; E66.9 Obesity, unspecified; Z68.33 Body mass index [BMI] 33.0-33.9, adult
CPT/HCPCS: 27447; 64447; 36415; 73560; 80048; 80307; 85025; 86850; 86900; 86901; 87081; 97110; 97116; 97161; 97165; 97530; A9270; C1713; C1776; J0131; J0171; J0690; J1100; J1170; J1885; J2250; J2270; J2370; J2405; J2704; J2795; J3010; J7030; J7120; J7512

== ENCOUNTER 2022-10-20 01:38 | Day surgery (SDC) | payer BC, SELFPAY ==
[2022-10-10 13:02] VITALS: BMI 33.7
[2022-10-20 11:26] VITALS: BP 144/85; PULSE 61; RESP 18; TEMP 36.1; O2SAT 100
[2022-10-20] MEDS: LACTATED RINGERS 1,000 ML 150 ML IV CONT (11:36)
[2022-10-20] MEDS: AMPICILLIN 2 GM/NS 100 ML 2 GM/100 ML BAG IVPB (11:39)
--- NOTE | 2022-10-20 11:48 | WPDANESEPPF ---
Anes - Initial Pre Proc Eval Procedure: Operation Date: 10/20/22 12:30 Proposed Procedures p Screening Colonoscopy - Blair Gutierres MD Date/Time: 10/20/22 11:48 Surgeon: Blair Gutierres MD Pre Op Diagnosis: neoplasm screening Patient Data Age: 62 Gender: M Height: 1.98 m Weight: 129.6 kg Last Vital Signs Temp 36.1 C L 10/20/22 11:26 Pulse 61 10/20/22 11:26 Resp 18 10/20/22 11:26 BP 144/85 H 10/20/22 11:26 Pulse Ox 100 10/20/22 11:26 O2 Del Method Room Air 10/20/22 11:26 Allergies Allergy/AdvReac Type Severity Reaction Status Date / Time neomycin Allergy Severe Swelling Verified 10/20/22 11:25 of the Eye ezetimibe AdvReac Intermediate muscle and Verified 10/20/22 11:25 leg aches, dizziness Home Medications Medication Instructions Recorded Confirmed Type niacin 1,000 mg tablet,extended 500 mg PO .COMPLEX 09/07/20 08/30/22 History release syringe with needle 3 mL 21 gauge See Rx Instructions .Route 08/25/21 08/30/22 Rx x 1 (BD Luer-Kandace Syringe) .COMPLEX #26 ea antiarthritic combination no.2 900 900 mg PO DAILY 11/11/21 10/10/22 History mg tablet (glucosamine-chondroitin) Ez Tears 1 tab-cap QAM 04/19/22 08/30/22 History omega-3 acid ethyl esters 1 gram See Rx Instructions .Route 04/27/22 10/10/22 Rx capsule .COMPLEX #360 caps needle (disp) 23 gauge 23 gauge x See Rx Instructions .Route 05/08/22 08/30/22 Rx 1 (Hypodermic [place]) .COMPLEX #7 ea aspirin 81 mg tablet,delayed 81 mg PO BID 14 days #28 tabs 05/16/22 10/10/22 Rx release testosterone cypionate 200 mg/mL 100 mg (0.5 mL) IM .COMPLEX #3 mL 07/27/22 08/30/22 Rx intramuscular oil (Depo-Testosterone) simvastatin 20 mg tablet See Rx Instructions .Route 08/08/22 10/10/22 Rx .COMPLEX #90 tabs metformin 500 mg tablet,extended 500 mg PO BID #180 tabs 09/04/22 10/10/22 Rx release 24 hr Patient hx anesthesia problems: none Family hx anesthesia problems: none Results Review: All pre-operative results and documents have been reviewed as part of the pre-operative evaluation. [facility] Past Medical History Medical History Arthritis of left hip Benign labile hypertension BPPV (benign paroxysmal positional vertigo) Elevated prolactin level Enlarged prostate without lower urinary tract symptoms (luts) Gastro-esophageal reflux disease without esophagitis Hypogonadism in male Mixed hyperlipidemia Neuropathy l hand Orthopedic aftercare Orthopedic aftercare for joint replacement Tear of meniscus of left knee Surgical History Surgical History H/O adenoidectomy H/O eye surgery H/O medial meniscus repair of right knee History of meniscectomy of left knee (~11/25/21) Medial Hx of colonoscopy 10.12.12 Hx of tonsillectomy Family History Family History Father Diabetes mellitus Hypertension Family history of elevated blood lipids Grandparent Diabetes mellitus Family history of cardiovascular disease Cerebrovascular accident Mother Hypertension Family history of cardiovascular disease Acute myocardial infarction Family history of Alzheimer's disease Family history of coronary artery disease Social History Social History Smoking packs per day: 1 Smoking cigarettes per day: 20.0 Years smoked: 10 Smoking pack-years: 10.00 Smoking status: Former smoker Tobacco type: cigarettes Second hand tobacco smoke exposure: No Smoking end date: 05/06/95 Additional smoking assessment comments: PT DENIES ALL FORMS OF TOBACCO USE Alcohol intake: never Drinks per week: 2 Substance use: never Substance use type: does not use Lack of Transportation: No Lack of Food: Never True Current Housing: I Have Housing Concerned About Future Housing:
--- NOTE | 2022-10-20 12:05 | PM.HPGS ---
History of Present Illness History of Present Illness Consent: Risks, benefits, and alternatives have been discussed and questions answered. Patient agrees to proceed with procedure. Chief complaint: neoplasm screening Narrative: Vincent Davis is a 62 year old male Presents for screening colonoscopy. Patient's current weight appetite and bowel movements are normal. Patient denies abdominal pain. He has had no bleeding. Family history noncontributory. Previous colonoscopy 12 years ago was unremarkable. Patient presents today for neoplasia screening colonoscopy. Review of Systems Review of Systems: Review of systems noncontributory. [facility] Past Medical History Medical History Arthritis of left hip Benign labile hypertension BPPV (benign paroxysmal positional vertigo) Elevated prolactin level Enlarged prostate without lower urinary tract symptoms (luts) Gastro-esophageal reflux disease without esophagitis Hypogonadism in male Mixed hyperlipidemia Neuropathy l hand Orthopedic aftercare Orthopedic aftercare for joint replacement Tear of meniscus of left knee Surgical History Surgical History H/O adenoidectomy H/O eye surgery H/O medial meniscus repair of right knee History of meniscectomy of left knee (~11/25/21) Medial Hx of colonoscopy 10.12.12 Hx of tonsillectomy Family History Family History Father Diabetes mellitus Hypertension Family history of elevated blood lipids Grandparent Diabetes mellitus Family history of cardiovascular disease Cerebrovascular accident Mother Hypertension Family history of cardiovascular disease Acute myocardial infarction Family history of Alzheimer's disease Family history of coronary artery disease Social History Social History Smoking packs per day: 1 Smoking cigarettes per day: 20.0 Years smoked: 10 Smoking pack-years: 10.00 Smoking status: Former smoker Tobacco type: cigarettes Second hand tobacco smoke exposure: No Smoking end date: 05/06/95 Additional smoking assessment comments: PT DENIES ALL FORMS OF TOBACCO USE Alcohol intake: never Drinks per week: 2 Substance use: never Substance use type: does not use Lack of Transportation: No Lack of Food: Never True Current Housing: I Have Housing Concerned About Future Housing: No Difficulty Paying Gas/Electric Bills: No Difficulty Paying for Meds: No Currently Unemployed: No Education: Associate Degree Difficulty w/ Childcare or Family Care: No Living arrangements: with family Spiritual care concerns: No Meds Home Medications and Allergies Home Medications Medication Instructions Recorded Confirmed Type niacin 1,000 mg tablet,extended 500 mg PO .COMPLEX 09/07/20 08/30/22 History release syringe with needle 3 mL 21 gauge See Rx Instructions .Route 08/25/21 08/30/22 Rx x 1 (BD Luer-Kandace Syringe) .COMPLEX #26 ea antiarthritic combination no.2 900 900 mg PO DAILY 11/11/21 10/10/22 History mg tablet (glucosamine-chondroitin) Ez Tears 1 tab-cap QAM 04/19/22 08/30/22 History omega-3 acid ethyl esters 1 gram See Rx Instructions .Route 04/27/22 10/10/22 Rx capsule .COMPLEX #360 caps needle (disp) 23 gauge 23 gauge x See Rx Instructions .Route 05/08/22 08/30/22 Rx 1 (Hypodermic [place]) .COMPLEX #7 ea aspirin 81 mg tablet,delayed 81 mg PO BID 14 days #28 tabs 05/16/22 10/10/22 Rx release testosterone cypionate 200 mg/mL 100 mg (0.5 mL) IM .COMPLEX #3 mL 07/27/22 08/30/22 Rx intramuscular oil (Depo-Testosterone) simvastatin 20 mg tablet See Rx Instructions .Route 08/08/22 10/10/22 Rx .COMPLEX #90 tabs metformin 500 mg tablet,extended 500 mg PO BID #180 tabs 09/04/22 10/10/22 Rx release 24 hr Allergies
[2022-10-20] MEDS: SIMETHICONE ORAL SUSPENSION 20 MG/0.3 ML 30 ML BOTTLE 0.6 ML IRRIGATION (12:14)
[2022-10-20 12:27] VITALS: BP 106/68; PULSE 68; RESP 20; TEMP 36.1; O2SAT 100
[2022-10-20 12:37] VITALS: BP 122/78; PULSE 68; RESP 18; TEMP 36.1; O2SAT 100
[2022-10-20 12:47] VITALS: BP 127/76; PULSE 60; RESP 18; TEMP 36.1; O2SAT 100
== END 2022-10-20 12:53 | disposition home or self-care (01) ==
PROVIDERS: PCP Family Medicine; Visit Provider Internal Medicine Gastroenterology
PROC: 0DJD8ZZ Inspection of Lower Intestinal Tract, Via Natural or Artificial Opening Endoscopic (ICD-10-PCS; CPT 45378; principal; 2022-10-20 12:30)
DX: Z12.11 Encounter for screening for malignant neoplasm of colon (principal); K64.8 Other hemorrhoids; E78.2 Mixed hyperlipidemia; N40.0 Benign prostatic hyperplasia without lower urinary tract symptoms; Z87.891 Personal history of nicotine dependence; E66.9 Obesity, unspecified; Z68.33 Body mass index [BMI] 33.0-33.9, adult; Z79.84 Long term (current) use of oral hypoglycemic drugs; Z79.82 Long term (current) use of aspirin; Z79.890 Hormone replacement therapy
CPT/HCPCS: 45378; J0290; J2704; J7120

== ENCOUNTER 2022-12-03 08:02 | Emergency (ER) | payer BC, SELFPAY ==
[2022-12-03 08:15] VITALS: BP 145/76; PULSE 66; RESP 18; TEMP 36.2; O2SAT 98
--- NOTE | 2022-12-03 08:23 | ED.SKABFB ---
HPI - Skin/Abscess/Foreign Bdy General Chief complaint: Skin/Abscess/Foreign Body Stated complaint: . Time Seen by Provider: 12/03/22 08:11 Source: patient Mode of arrival: ambulatory Limitations: no limitations History of Present Illness HPI narrative: 62-year-old male presents to clinic with complaints of skin tag to his posterior left shoulder for the past month. Patient reports that the area became more irritable, reddened over the past week. Patient reports that he is going out of town next week and would like the area removed. Patient reports that he is established with a local stock ranch supervisor as well as a primary care provider who he has not discussed these symptoms with. Patient denies fever, body aches, chills, nausea, vomiting or diarrhea MD complaint: other (skin tag ) Onset (ago): month(s) (1) Location: LUE (Posterior aspect of left shoulder) Relieving factors: none Exacerbating factors: none Treatments prior to arrival: none Related Data Home Medications Medication Instructions Recorded Confirmed niacin 1,000 mg tablet,extended 500 mg PO .COMPLEX 09/07/20 12/03/22 release antiarthritic combination no.2 900 900 mg PO DAILY 11/11/21 12/03/22 mg tablet (glucosamine-chondroitin) Ez Tears 1 tab-cap QAM 04/19/22 12/03/22 Allergies Allergy/AdvReac Type Severity Reaction Status Date / Time neomycin Allergy Severe Swelling Verified 12/03/22 08:19 of the Eye ezetimibe AdvReac Intermediate muscle and Verified 12/03/22 08:19 leg aches, dizziness Review of Systems Constitutional: Constitutional: Denies chills, Denies fatigue, Denies fever(s) and Denies weakness ENT: Denies vertigo, Denies dizziness and Denies nasal congestion Respiratory: Respiratory: Denies chest congestion, Denies cough, Denies dyspnea and Denies wheezing Gastrointestinal: Gastrointestinal: Denies diarrhea, Denies nausea and Denies vomiting Genitourinary: Genitourinary: Denies dysuria Integumentary/Breasts: Skin/Breast: Denies rash and Denies skin ulcer Comments: skin tag to posterior aspect of left shoulder Neurologic: Denies dizziness, Denies syncope and Denies headache(s) [facility] Past Medical History Medical History Arthritis of left hip Benign labile hypertension BPPV (benign paroxysmal positional vertigo) Elevated prolactin level Enlarged prostate without lower urinary tract symptoms (luts) Gastro-esophageal reflux disease without esophagitis Hypogonadism in male Mixed hyperlipidemia Neuropathy l hand Orthopedic aftercare Orthopedic aftercare for joint replacement Tear of meniscus of left knee Surgical History Surgical History H/O adenoidectomy H/O eye surgery H/O medial meniscus repair of right knee History of meniscectomy of left knee (~11/25/21) Medial Hx of colonoscopy 10.12.12 Hx of tonsillectomy Family History Family History Father Diabetes mellitus Hypertension Family history of elevated blood lipids Grandparent Diabetes mellitus Family history of cardiovascular disease Cerebrovascular accident Mother Hypertension Family history of cardiovascular disease Acute myocardial infarction Family history of Alzheimer's disease Family history of coronary artery disease Social History Social History Smoking packs per day: 1 Smoking cigarettes per day: 20.0 Years smoked: 10 Smoking pack-years: 10.00 Smoking status: Former smoker Tobacco type: cigarettes Second hand tobacco smoke exposure: No Smoking end date: 05/06/95 Additional smoking assessment comments: PT DENIES ALL FORMS OF TOBACCO USE Alcohol intake: never Drinks per week: 2 Substance use: never Substance use type: does not use Lack of Transportation: No Lack of Food: Yisel
== END 2022-12-03 08:30 | disposition home or self-care (01) ==
PROVIDERS: Emergency Provider Nurse Practitioner Family; PCP Family Medicine
DX: L91.8 Other hypertrophic disorders of the skin (principal); L03.114 Cellulitis of left upper limb; Z87.891 Personal history of nicotine dependence; M16.11 Unilateral primary osteoarthritis, right hip; N40.0 Benign prostatic hyperplasia without lower urinary tract symptoms; E78.2 Mixed hyperlipidemia
CPT/HCPCS: 99213; G0463

== ENCOUNTER 2024-05-01 15:42 | Outpatient (CLI) | payer BC, SELFPAY ==
--- NOTE | ~2024-05-01 | XR_ITS ---
XR hip LT 2V w AP pelvis 05/01/2024 16:01 Indication: Left hip pain Procedure: AP pelvis and 2 views left hip Comparison: No prior studies for comparison. Findings: Moderate osteoarthritis of the left hip. No fracture or traumatic malalignment. Pelvic ring s intact. Mild osteoarthritis of the right hip. Impression: 1: Bilateral osteoarthritis of the hips, left greater than right. Reviewed, dictated and finalized at location B. Impression: 1: Bilateral osteoarthritis of the hips, left greater than right.
== END 2024-05-01 15:43 | disposition home or self-care (01) ==
LOC: GOSHIMG 15:44
PROVIDERS: PCP Family Medicine; Visit Provider Orthopaedic Surgery
DX: M16.0 Bilateral primary osteoarthritis of hip (principal)
CPT/HCPCS: 73502

== ENCOUNTER 2024-05-27 15:48 | Outpatient (CLI) | payer BC, SELFPAY ==
--- NOTE | ~2024-05-27 | XR_ITS ---
XR knee LT min 4V 05/27/2024 16:12 Indication: Left knee pain Procedure: 4 views left knee Comparison: 08/09/2022 Findings: There is moderate tricompartmental osteoarthritis of the left knee. Moderate joint effusion . No significant soft tissue abnormality. No foreign bodies. Impression: 1: Moderate tricompartment osteoarthritis of the left knee. Reviewed, dictated and finalized at location B. Impression: 1: Moderate tricompartment osteoarthritis of the left knee.
== END 2024-05-27 15:49 | disposition home or self-care (01) ==
PROVIDERS: PCP Family Medicine; Visit Provider Orthopaedic Surgery
DX: Z98.890 Other specified postprocedural states (principal); M17.12 Unilateral primary osteoarthritis, left knee
CPT/HCPCS: 73564

== ENCOUNTER 2024-08-07 15:22 | Outpatient (CLI) | payer BC, SELFPAY ==
--- NOTE | ~2024-08-07 | US_ITS ---
RIGHT SIDE of the back ULTRASOUND ) Ordering provider: Moshe Christiansen APRN History: . R22.2 - Localized swelling, mass and lump, trunk . Comparison: None. FINDINGS/impression: No definite mass is seen. Reviewed, dictated and finalized at location A. CAL OFFICE COORDINATOR
== END 2024-08-07 15:23 | disposition home or self-care (01) ==
LOC: MICIMG 15:22
PROVIDERS: PCP Family Medicine; Visit Provider Student in an Organized Health Care Education/Training Program
DX: R22.2 Localized swelling, mass and lump, trunk (principal)
CPT/HCPCS: 76705

== ENCOUNTER 2024-08-22 05:42 | Observation (INO) | payer BC, SELFPAY ==
--- NOTE | ~2024-08-22 | CT_ITS ---
EXAMINATION: CTA chest PE abdomen pel DATE: 08/22/2024 08:41 INDICATION: Right flank pain. TECHNIQUE: Computed tomography angiography (CTA) of the chest was performed with 100 mL Omnipaque-350 intravenous contrast timed to evaluate the pulmonary arteries. Coronal maximum intensity projection 3D-reconstructions were created by the technologist. Computed tomography (CT) of the abdomen and pelv is was performed with intravenous contrast. Automated exposure control and iterative reconstruction t echnique were employed. The dose-length product was 3163.78 mGy-cm. COMPARISON: CT abdomen and pelvis 02/17/2007. FINDINGS: CTA chest: There is mild scarring in paraspinal right lower lobe. No pleural effusion. The heart size is normal. There are coronary artery calcifications. No pericardial effusion. There are small pulmon davion emboli in right middle lobe, left upper lobe, and left lower lobe. There are bridging endplate os teophytes at multiple levels in the spine, consistent with diffuse idiopathic skeletal hyperostosis ( DISH). CT abdomen and pelvis: The liver and spleen are normal. The gallbladder is distended. The pancreas, a drenal glands, and right kidney are normal. There is a 5 mm cyst in left kidney. The prostate is mild ly enlarged. There are bilateral inguinal hernias containing fat. There are no dilated loops of bowel . The appendix is normal. There are no pathologically enlarged lymph nodes. There is no free intraper itoneal fluid. There is moderate lumbar spondylosis. IMPRESSION: 1. Acute bilateral pulmonary emboli. No right heart strain. 2. Gallbladder distention, which may be secondary to fasting. Correlate with physical exam to exclude acute cholecystitis. 3. Bilateral inguinal hernias containing fat. Reviewed, dictated and finalized at location A. TESY VAN DRIVER IMPRESSION: 1. Acute bilateral pulmonary emboli. No right heart strain. 2. Gallbladder distention, which may be secondary to fasting. Correlate with ph ysical exam to exclude acute cholecystitis. 3. Bilateral inguinal hernias containing fat.
--- NOTE | ~2024-08-22 | US_ITS ---
EXAMINATION: US abdomen limited DATE: 08/23/2024 07:50 INDICATION: Right flank pain. TECHNIQUE: Multiple grayscale and Doppler ultrasound images of the abdomen were obtained. COMPARISON: CT 08/22/2024 FINDINGS: The visualized portions of the head, body, and tail of the pancreas are normal. There is di ffuse hepatic steatosis. There is normal flow in main portal vein. The gallbladder is normal in size. No gallstones or gallbladder wall thickening. There is no sonographic Crockett's sign. The common duct is normal and measures 5 mm. IMPRESSION: 1. Diffuse hepatic steatosis. Reviewed, dictated and finalized at location A. F ACCOUNTANT
[2024-08-22 05:54] VITALS: BP 187/99; PULSE 97; RESP 17; TEMP 36.7; O2SAT 98
--- NOTE | 2024-08-22 07:37 | ECG_ITS ---
Test Date: 2024-08-22 07:46:56 Measurements Intervals [place] Rate: 92 P: 45 ND: 164 QRS: -11 QRSD: 98 T: 46 QT: 340 QTc: 421 Interpretive Statements SINUS RHYTHM No previous ECG available for comparison Electronically Signed On 08-22-2024 14:43:03 QC CHEMIST by Samuel Horner M.D.
--- NOTE | 2024-08-22 07:37 | PC.NURSE ---
Patient ambulated to the restroom with steady gate
[2024-08-22] MEDS: ONDANSETRON INJ 4 MG/2 ML VIAL IV PUSH (07:53)
[2024-08-22] MEDS: MORPHINE SULFATE (*CRX) 4 MG/ML INJ IV PUSH (07:53)
[2024-08-22] MEDS: SODIUM CHLORIDE 0.9% IV 1,000 ML 999 ML IV CONT (07:53)
[2024-08-22 08:09] LABS: Add Urine Microscopic? NO; Appearance Urine Clear (Clear); Bilirubin Urine Negative (Negative); Blood Urine Negative (Negative); Color Urine Yellow (Yellow); Glucose Urine UA Negative (Negative); Ketones Urine Negative (Negative); Leukocyte Esterase Ur Negative LEU/UL (Negative); Nitrate Urine Negative (Negative); Protein Urine Negative (Negative); Specific Grav Ur 1.022 (1.001-1.035); Urobilinogen Urine 0.2 mg/dL (<2.0); pH Urine 5.5 (5.0-9.0)
[2024-08-22 08:21] LABS: Alanine Aminotransferase 20 U/L (6-50); Albumin Level 4.2 g/dL (3.5-5.1); Alkaline Phosphatase 61 U/L (38-126); Anion Gap 6 mmol/L (4-12); Aspartate Amino Transferase 21 U/L (17-59); Bilirubin,Total 1.7 mg/dL (0.2-1.3); Blood Urea Nitrogen 18 mg/dL (9-20); Calcium 8.5 mg/dL (8.4-10.2); Carbon Dioxide 31 mmol/L (22-30); Chloride 99 mmol/L (98-107); Estimated CRCL calculation 130 ml/min; Estimated Glomerular Filt Rate > 60; Glucose 134 mg/dL (65-110); Lipase 51 U/L (23-300); Potassium 4.2 mmol/L (3.4-5.0); Sodium 136 mmol/L (137-145)
--- NOTE | 2024-08-22 08:23 | PC.NURSE ---
Pharmacy called for patient's norflex
[2024-08-22 08:25] VITALS: BP 139/75; PULSE 82; RESP 13; O2SAT 94
[2024-08-22 08:25] LABS: Prothrombin Time 13.5 Seconds (11.1-14.7)
[2024-08-22 08:26] LABS: Partial Thromboplastin Time 31.4 Seconds (22.3-36.8)
[2024-08-22 08:27] LABS: Basophils Percent Auto 0.3 % (0.2-1.2); Eosinophils Percent Auto 0.3 % (0-4.4); Hematocrit 48.9 % (42.0-52.0); Hemoglobin 16.7 g/dL (14.0-18.0); Immature Granulocyte Absolute 0.07 K/mm3 (0.00-0.031); Immature Granulocyte Percent A 0.7 % (0-0.5); Lymphocytes Absolute Auto 0.26 K/mm3 (0.9-3.2); Lymphocytes Percent Auto 2.5 % (18.3-44.2); Mean Corpuscular HGB Conc 34.2 g/dl (32-36); Mean Corpuscular Hemoglobin 30.3 pg (26-34); Mean Corpuscular Volume 88.6 fl (80-100); Mean Platelet Volume 9.6 fl (7.4-10.4); Monocytes Absolute Auto 0.6 K/mm3 (0.1-0.6); Monocytes Percent Auto 5.8 % (2.6-8.5); Neutrophils Absolute Auto 9.6 K/mm3 (1.3-6.7); Neutrophils Percent Auto 90.4 % (45.5-73.1); Platelet Count Result 241 k/mm3 (150-375); Red Blood Count 5.52 M/mm3 (4.6-6.20); Red Cell Distribution Width 11.9 % (11.5-14.5); White Blood Count 10.6 K/mm3 (4.5-10.0)
[2024-08-22] MEDS: ORPHENADRINE CITRATE 100 MG TABLET.ER PO (08:28)
[2024-08-22 08:43] LABS: Influenza A QL RT-PCR Negative (Negative); Influenza B QL RT-PCR Negative (Negative); RSV RNA, RT-PCR Negative (Negative); SARS-CoV-2 RNA PCR Positive (Negative)
--- NOTE | 2024-08-22 08:46 | PC.NURSE ---
Lab called for add on trop and mag orders
[2024-08-22 08:57] LABS: Magnesium 1.5 mg/dL (1.6-2.3); Procalcitonin 0.2 ng/mL
--- NOTE | 2024-08-22 09:05 | ED.GENADULT ---
HPI - General Adult General Chief complaint: Unspecified Stated complaint: R back spasms, diarrhea, headache Time Seen by Provider: 08/22/24 07:12 History of Present Illness HPI narrative: Patient is 63-year-old gentleman presents emergency department with chief complaint of right-sided back/flank pain. The patient states that he has had diarrhea nausea body aches patient states that he has been going to chiropractor and has been going to acupuncture and reports that he continues to have pain. The patient states that he thinks he may be coming down with something Related Data Home Medications ?Medication ?Instructions ?Recorded ?Confirmed ?Last Taken ?Type antiarthritic combination no.2 900 900 mg PO DAILY 11/11/21 07/31/24 05/11/22 History mg tablet (glucosamine-chondroitin) Ez Tears 1 tab-cap QAM 04/19/22 07/31/24 05/13/22 History aspirin 81 mg tablet,delayed 81 mg PO .QOD 12/08/22 07/31/24 Unknown History release (Adult Low Dose Aspirin) niacin 1,000 mg tablet,extended 1,500 mg PO .COMPLEX 08/30/23 07/31/24 Unknown History release Allergies Allergy/AdvReac Type Severity Reaction Status Date / Time neomycin Allergy Severe Swelling Verified 08/22/24 05:43 of the Eye ezetimibe AdvReac Intermediate muscle and Verified 08/22/24 05:43 leg aches, dizziness Review of Systems Review of Systems: A 10 system review of systems was completed on the patient and is negative except for what is stated in the HPI. Nursing and ancillary documentation was reviewed. [facility] Past Medical History Medical History Acute bronchitis Cutaneous horn Skin tag, acquired BPPV (benign paroxysmal positional vertigo) Orthopedic aftercare for joint replacement Orthopedic aftercare Tear of meniscus of left knee Primary osteoarthritis of left knee Left knee pain Arthritis of left hip Left hip pain Neuropathy l hand Benign labile hypertension Elevated prolactin level Enlarged prostate without lower urinary tract symptoms (luts) Gastro-esophageal reflux disease without esophagitis Hypogonadism in male Mixed hyperlipidemia Surgical History Surgical History Hx of colonoscopy 05.17.12 History of meniscectomy of left knee (~11/25/21) Medial H/O medial meniscus repair of right knee H/O adenoidectomy Hx of tonsillectomy H/O eye surgery Family History Family History Father Diabetes mellitus Hypertension Family history of elevated blood lipids Grandparent Diabetes mellitus Family history of cardiovascular disease Cerebrovascular accident Mother Hypertension Family history of cardiovascular disease Acute myocardial infarction Family history of Alzheimer's disease Family history of coronary artery disease Social History Social History Smoking packs per day: 1 Smoking cigarettes per day: 20.0 Years smoked: 10 Smoking pack-years: 10.00 Smoking status: Former smoker Tobacco type: cigarettes Second hand tobacco smoke exposure: No Smoking end date: 05/06/95 Additional smoking assessment comments: PT DENIES ALL FORMS OF TOBACCO USE Alcohol intake: never Alcohol use details: occasionally Substance use: never Substance use type: does not use Do You Feel Safe in your Home?: Yes Lack of Transportation: No Lack of Food: Never True Current Housing: I Have Housing Concerned About Future Housing: No Difficulty Paying Gas/Electric Bills: No Difficulty Paying for Meds: No Currently Unemployed: No Education: Associate Degree Difficulty w/ Childcare or Family Care: No Living arrangements: with family Spiritual care concerns: No Exam Narrative: GENERAL: Well-appearing, well-nourished, and in no acute distress. HEAD: Normocephalic, atraumatic. EYES: PERRLA and EOMI. ENT: Nares clear, no rhinorrhea or epistaxis. Mucous membranes moist. NECK: Supple. CHEST: Clear to auscultation. No respiratory distress. HEART: Regular rate and rhythm. No murmur heard. Normal peripheral pulses. ABDOMEN: Soft, nontender, nondistended, normal active bowel sounds. EXTREMITIES: Normal range of motion. No edema. SKIN: Warm, dry, no rash. NEURO: No focal deficits. Alert and oriented x3. PSYCH: Normal mood and affect. Course Vital Signs Vital signs: Vital Signs Temperature 36.7 C 08/22/24 05:54 Pulse Rate 97 08/22/24 05:54 Respiratory Rate 17 08/22/24 05:54 Blood Pressure 187/99 H 08/22/24 05:54 Pulse Oximetry 98 08/22/24 05:54 Temperature 36.7 C 08/22/24 05:54 Pulse Rate 82 08/22/24 08:25 Respiratory Rate 13 08/22/24 08:25 Blood Pressure 139/75 08/22/24 08:25 Pulse Oximetry 94 08/22/24 08:25 Medical Decision Making MDM Narrative Medical decision making narrative: Differential diagnosis includes musculoskeletal pain, pulmonary embolism, COVID-19, upper respiratory infection, pneumonia, Laboratory studies were obtained on the patient which showed a CBC with white count of 10.6 electrolytes are within normal limits magnesium was 1.5 initial troponin was negative COVID was positive CTA chest with abdomen pelvis showed 1. Acute bilateral pulmonary emboli. No right heart strain. 2. Gallbladder distention, which may be secondary to fasting. Correlate with physical exam to exclude acute cholecystitis. 3. Bilateral inguinal hernias containing fat. Vital Signs Vital Signs: Vital Signs Temperature 36.7 C 08/22/24 05:54 Pulse Rate 97 08/22/24 05:54 Respiratory Rate 17 08/22/24 05:54 Blood Pressure 187/99 H 08/22/24 05:54 Pulse Oximetry 98 08/22/24 05:54 Temperature 36.7 C 08/22/24 05:54 Pulse Rate 82 08/22/24 08:25 Respiratory Rate 13 08/22/24 08:25 Blood Pressure 139/75 08/22/24 08:25 Pulse Oximetry 94 08/22/24 08:25 Lab Data 08/22/24 07:54 08/22/24 07:54 Labs: Lab Results 08/22/24 08/22/24 Range/Units 07:54 07:55 WBC 10.6 H (4.5-10.0) K/mm3 RBC 5.52 (4.6-6.20) M/mm3 Hgb 16.7 D (14.0-18.0) g/dL Hct 48.9 (42.0-52.0) % MCV 88.6 (80-100) fl MCH 30.3 (26-34) pg MCHC 34.2 (32-36) g/dl RDW 11.9 (11.5-14.5) % Plt Count 241 (150-375) k/mm3 MPV 9.6 (7.4-10.4) fl Immature Gran % (Auto) 0.7 H (0-0.5) % Neut % (Auto) 90.4 H (45.5-73.1) % Lymph % (Auto) 2.5 L (18.3-44.2) % Isabella % (Auto) 5.8 (2.6-8.5) % Eos % (Auto) 0.3 (0-4.4) % Baso % (Auto) 0.3 (0.2-1.2) % Lymph # (Auto) 0.26 L (0.9-3.2) K/mm3 Isabella # (Auto) 0.6 (0.1-0.6) K/mm3 Eos # (Auto) 0.0 (0-0.3) K/mm3 Baso # (Auto) 0.0 (0.0-0.1) K/mm3 Abs Immat Gran (auto) 0.07 H (0.00-0.031) K/mm3 Absolute Neuts (auto) 9.6 H (1.3-6.7) K/mm3 Absolute Nucleated RBC 0.000 (0.0-0.012) K/mm3 Nucleated RBC % 0.0 (0.0-0.2) % PT Pending INR Pending APTT Pending Sodium 136 L (137-145) mmol/L Potassium 4.2 (3.4-5.0) mmol/L Chloride 99 (98-107) mmol/L Carbon Dioxide 31 H (22-30) mmol/L Anion Gap 6 (4-12) mmol/L BUN 18 (9-20) mg/dL Creatinine 0.77 (0.7-1.3) mg/dL Estim Creat Clear Calc 130 ml/min Estimated GFR > 60 (59 - ) Glucose 134 H (65-110) mg/dL Lactic Acid 2.0 (0.7-2.0) mmol/L Calcium 8.5 (8.4-10.2) mg/dL Magnesium 1.5 L (1.6-2.3) mg/dL Total Bilirubin 1.7 H (0.2-1.3) mg/dL AST 21 (17-59) U/L ALT 20 (6-50) U/L Alkaline Phosphatase 61 (38-126) U/L Troponin I < 0.012 (0.000-0.034) ng/mL Total Protein 7.0 (6.3-8.2) g/dL Albumin 4.2 (3.5-5.1) g/dL Lipase 51 (23-300) U/L Procalcitonin 0.2 ng/mL Urine Color Yellow (Yellow) Urine Appearance Clear (Clear) Urine pH 5.5 (5.0-9.0) Ur Specific [place] 1.022 (1.001-1.035) Urine Protein Negative (Negative) mg/dL Urine Glucose (UA) Negative (Negative) mg/dL Urine Ketones Negative (Negative) mg/dL Ur Blood (Man) Negative (Negative) Urine Nitrate Negative (Negative) Urine Bilirubin Negative (Negative) Urine Urobilinogen 0.2 (<2.0) mg/dL Leukocyte Esterase Rfl Negative (Negative) ARGELIA/UL Influenza A (RT-PCR) Negative (Negative) Influenza B (RT-PCR) Negative (Negative) RSV (RT-PCR) Negative (Negative) SARS-CoV-2 RNA (RT-PCR) Positive A (Negative) Discharge Plan Discharge Clinical Impression: Pulmonary embolism, COVID-19 Patient Disposition: Still a Patient Condition: Stable Patient Language: Ukrainian Prescriptions: No Action niacin 1,000 mg tablet extended release 1,500 mg PO .COMPLEX Patient Comments: HS Rx Instructions: 1,500 mg orally ; glucosamine-chondroitin 900 mg tablet 900 mg PO DAILY Patient Comments: 2 TABS QAM aspirin [Adult Low Dose Aspirin] 81 mg tablet,delayed release (DR/EC) 81 mg PO .QOD sildenafil [Viagra] 50 mg tablet 50 mg PO DAILY PRN (Reason: sexual activity) Qty: 10 0RF Rx Instructions: administer 30 minutes to 4 hours before activity Ez Tears 1 tab-cap QAM (DME) BD Luer-Kandace Syringe 3 mL 21 gauge x 1 syringe See Rx Instructions .ROUTE .COMPLEX Qty: 26 3RF Dose Instruction: USE 1 SYRINGE EVERY 2 WEEKS Rx Instructions: USE 1 SYRINGE EVERY 2 WEEKS (DME) OneTouch Verio test strips Strip See Rx Instructions .Route Qty: 100 3RF Rx Instructions: As directed blood glucose control, normal [OneTouch Verio Mid Control] Solution See Rx Instructions miscellaneous .COMPLEX Qty: 1 3RF Rx Instructions: per meter instructions as directed; (DME) lancets [OneTouch Delica Plus Lancet] 33 gauge misc See Rx Instructions .Route Qty: 100 3RF Rx Instructions: As directed omega-3 acid ethyl esters 1 gram capsule See Rx Instructions .ROUTE .COMPLEX Qty: 360 1RF Dose Instruction: TAKE 2 CAPSULES TWICE A DAY DIRECTED WITH FOOD Rx Instructions: TAKE 2 CAPSULES TWICE A DAY DIRECTED WITH FOOD needle (disp) 23 gauge [Hypodermic [place]] 23 gauge x 1 needle See Rx Instructions .ROUTE .COMPLEX Qty: 7 3RF Dose Instruction: USE EVERY 2 WEEKS Rx Instructions: USE EVERY 2 WEEKS testosterone cypionate 200 mg/mL oil 200 mg IM .C0woymm Qty: 10 3RF metformin 500 mg tablet extended release 24 hr 500 mg PO BID Qty: 180 1RF Follow-up/Referrals: Marta Loving MD [Primary Care Provider] - Time of Disposition: 09:24
[2024-08-22 09:09] LABS: Troponin I < 0.012 ng/mL (0.000-0.034)
[2024-08-22] MEDS: MAGNESIUM SULF 1 GM/D5W 100 ML 1 GM/100 ML BAG IVPB (09:45)
[2024-08-22] MEDS: HEPARIN SODIUM 5,000 UNITS/ML VIAL 9000 UNITS IV PUSH ×2 (10:00→21:04)
[2024-08-22] MEDS: HEPARIN SOD/D5W 100 UNITS/ML 25,000 UNITS/250 ML BAG 15 UNITS IV CONT (10:00)
[2024-08-22 11:39] LABS: Basophils Percent Auto 0.3 % (0.2-1.2); Eosinophils Percent Auto 0.2 % (0-4.4); Hematocrit 46.7 % (42.0-52.0); Hemoglobin 15.7 g/dL (14.0-18.0); Immature Granulocyte Absolute 0.07 K/mm3 (0.00-0.031); Immature Granulocyte Percent A 0.6 % (0-0.5); Lymphocytes Absolute Auto 0.38 K/mm3 (0.9-3.2); Lymphocytes Percent Auto 3.1 % (18.3-44.2); Mean Corpuscular HGB Conc 33.6 g/dl (32-36); Mean Corpuscular Hemoglobin 29.7 pg (26-34); Mean Corpuscular Volume 88.3 fl (80-100); Mean Platelet Volume 9.1 fl (7.4-10.4); Monocytes Absolute Auto 0.6 K/mm3 (0.1-0.6); Monocytes Percent Auto 4.8 % (2.6-8.5); Platelet Count Result 269 k/mm3 (150-375); Red Blood Count 5.29 M/mm3 (4.6-6.20); Red Cell Distribution Width 11.9 % (11.5-14.5); White Blood Count 12.1 K/mm3 (4.5-10.0)
[2024-08-22 12:17] VITALS: BMI 34.7
[2024-08-22 13:27] LABS: Troponin I < 0.012 ng/mL (0.000-0.034)
--- NOTE | 2024-08-22 13:28 | PM.IMHP ---
H&P: HPI History of Present Illness Date/Time: 08/22/24 13:28 Chief Complaint: Back pain, exertion dyspnea Narrative: 63 years old man with history of obesity, hyperlipidemia, present ED with a chief complaint of back pain and exertional dyspnea. Patient has been having left back in past few months, and pain getting worse gradually. Patient also has exertional dyspnea that is getting worse gradually. Patient has some cough without phlegm. Yesterday patient had chills and subjective fever. Patient had low-grade fever at home. Patient has worsening back pain, wheeze or shortness breast today. Therefore patient came to ED for evaluation treatment. Patient denied headache, nausea vomiting diarrhea dysuria focal weaknes. Upon arrival in the ED, patient was afebrile, blood pressure stable, pulse ox 94 on room air. Labs showed leukocytosis 12,100. Mild hyponatremia 136, see me 1.5, bilirubin 1.7. Influenza negative, COVID positive. CTA showed acute bilateral pulmonary embolism, no right heart strain. Gallbladder distension. Review of Systems Review of Systems: ROS negative except above PMFSH Past Medical History Medical History Acute bronchitis Cutaneous horn Skin tag, acquired BPPV (benign paroxysmal positional vertigo) Orthopedic aftercare for joint replacement Orthopedic aftercare Tear of meniscus of left knee Primary osteoarthritis of left knee Left knee pain Arthritis of left hip Left hip pain Neuropathy l hand Benign labile hypertension Elevated prolactin level Enlarged prostate without lower urinary tract symptoms (luts) Gastro-esophageal reflux disease without esophagitis Hypogonadism in male Mixed hyperlipidemia Surgical History Surgical History Hx of colonoscopy 12.12 History of meniscectomy of left knee (~11/25/21) Medial H/O medial meniscus repair of right knee H/O adenoidectomy Hx of tonsillectomy H/O eye surgery Family History Family History Father Diabetes mellitus Hypertension Family history of elevated blood lipids Grandparent Diabetes mellitus Family history of cardiovascular disease Cerebrovascular accident Mother Hypertension Family history of cardiovascular disease Acute myocardial infarction Family history of Alzheimer's disease Family history of coronary artery disease Social History Social History Smoking packs per day: 1 Smoking cigarettes per day: 20.0 Years smoked: 10 Smoking pack-years: 10.00 Smoking status: Former smoker Second hand tobacco smoke exposure: No Additional smoking assessment comments: PT DENIES ALL FORMS OF TOBACCO USE Alcohol intake: never Alcohol use details: occasionally Substance use: never Substance use type: does not use Do You Feel Safe in your Home?: Yes Lack of Transportation: No Lack of Food: Never True Current Housing: I Have Housing Concerned About Future Housing: No Difficulty Paying Gas/Electric Bills: No Difficulty Paying for Meds: No Currently Unemployed: No Education: Associate Degree Difficulty w/ Childcare or Family Care: No Living arrangements: with family Spiritual care concerns: No Meds Home Medications and Allergies Home Medications ?Medication ?Instructions ?Recorded ?Confirmed ?Type antiarthritic combination no.2 900 900 mg PO DAILY 11/11/21 08/22/24 History mg tablet (glucosamine-chondroitin) Ez Tears 1 tab-cap ophthalmic (eye) QAM 04/19/22 08/22/24 History aspirin 81 mg tablet,delayed 81 mg PO .QOD 12/08/22 08/22/24 History release (Adult Low Dose Aspirin) niacin 1,000 mg tablet,extended 1,500 mg PO .COMPLEX 08/30/23 08/22/24 History release syringe with needle 3 mL 21 gauge #26 ea 01/09/24 08/22/24 Rx x 1 (BD Luer-Kandace Syringe) OneTouch Verio Mid Control (blood See Rx Instructions miscellaneous 01/15/24 08/22/24 Rx glucose control, normal) .COMPLEX #1 ea blood sugar diagnostic (OneTouch #100 ea 01/15/24 08/22/24 Rx Verio test strips) lancets 33 gauge (OneTouch Delica #100 ea 01/15/24 08/22/24 Rx Plus Lancet) omega-3 acid ethyl esters 1 gram See Rx Instructions .Route 04/15/24 08/22/24 Rx capsule .COMPLEX #360 caps needle (disp) 23 gauge 23 gauge x See Rx Instructions .Route 04/22/24 08/22/24 Rx 1 (Hypodermic [place]) .COMPLEX #7 ea sildenafil 50 mg tablet (Viagra) 50 mg PO DAILY PRN sexual activity 05/01/24 08/22/24 Rx #10 tabs testosterone cypionate 200 mg/mL 200 mg IM .[id number] #10 mL 05/27/24 08/22/24 Rx intramuscular oil metformin 500 mg tablet,extended 500 mg PO BID #180 tabs 07/15/24 08/22/24 Rx release 24 hr Allergies Allergy/AdvReac Type Severity Reaction Status Date / Time neomycin Allergy Severe Swelling Verified 08/22/24 05:43 of the Eye ezetimibe AdvReac Intermediate muscle and Verified 08/22/24 05:43 leg aches, dizziness Vital Signs Vital Signs - 24 hr 08/22/24 05:54 08/22/24 08:25 Temperature 98.1 F Pulse Rate 97 82 Respiratory Rate 17 13 Blood Pressure 187/99 H 139/75 Pulse Oximetry 98 94 Exam Narrative: GENERAL: Pleasant, in no acute distress. Well-nourished. - EYES: EOMI. Anicteric. - HENT: Moist mucous membranes. - LUNGS: Clear to auscultation bilaterally, no wheezing, rhonchi, or rales. - CARDIOVASCULAR: Regular rate and rhythm. No murmur. No JVD. - ABDOMEN: Soft, non-tender and non-distended. No palpable masses. - EXTREMITIES: No edema. Peripheral pulses 2+. Non-tender. - NEUROLOGIC: No focal neurological deficits. CN II-XII grossly intact. - PSYCHIATRIC: Awake, Alert and oriented x 3. Appropriate mood and affect. - SKIN: No rashes or lesions. Warm. - LYMPH: No cervical lymphadenopathy. H&P: Results Labs Labs: Short CBC 08/22/24 08/22/24 Range/Units 07:54 11:32 WBC 10.6 H 12.1 H (4.5-10.0) K/mm3 Hgb 16.7 D 15.7 (14.0-18.0) g/dL Hct 48.9 46.7 (42.0-52.0) % Plt Count 241 269 (150-375) k/mm3 [facility] 08/22/24 07:54 Sodium 136 L Potassium 4.2 Chloride 99 Carbon Dioxide 31 H BUN 18 Creatinine 0.77 Glucose 134 H Calcium 8.5 Cardiac Enzymes 08/22/24 08/22/24 Range/Units 07:54 11:32 Troponin I < 0.012 < 0.012 (0.000-0.034) ng/mL Liver Function 08/22/24 Range/Units 07:54 Total Bilirubin 1.7 H (0.2-1.3) mg/dL AST 21 (17-59) U/L ALT 20 (6-50) U/L Alkaline Phosphatase 61 (38-126) U/L Albumin 4.2 (3.5-5.1) g/dL Urine 08/22/24 Range/Units 07:55 Urine Color Yellow (Yellow) Urine Appearance Clear (Clear) Urine pH 5.5 (5.0-9.0) Ur Specific [place] 1.022 (1.001-1.035) Urine Protein Negative (Negative) mg/dL Urine Glucose (UA) Negative (Negative) mg/dL Assessment and Plan Assessment and plan (1) Acute pulmonary embolism: Code(s): I26.99 - Other pulmonary embolism without acute cor pulmonale Status: Acute (2) Back pain: Code(s): M54.9 - Dorsalgia, unspecified Status: Acute (3) Obesity: Code(s): E66.9 - Obesity, unspecified Status: Acute (4) COVID-19 virus infection: Code(s): U07.1 - COVID-19 Status: Acute Plan Acute pulmonary embolism CT showed acute bilateral pulmonary emboli. No right heart strain. Patient has back pain in past few months, exertional dyspnea that is worse in past few days Start heparin drip Pending echocardiogram Gallbladder distension Patient has leukocytosis, elevated total bilirubin Need to rule out acute cholecystitis Pending abdomen ultrasound Will start Unasyn IV Consult general surgeon for evaluation treatment COVID infection No O2 desaturation No need antiviral medication now Start Decadron p.o. Obesity Patient is on metformin Follow-up A1c and fasting glucose
[2024-08-22 13:35] LABS: INR 1.2; Prothrombin Time 15.8 Seconds (11.1-14.7)
[2024-08-22 13:39] LABS: Partial Thromboplastin Time 155.5 Seconds (22.3-36.8)
--- NOTE | 2024-08-22 13:41 | ECHO_ITS ---
Patient Info Name: Vincent Davis Age: 63 years : 1960 Gender: Male Ht: 78 in Wt: 300 lbs BSA: 2.77 m2 HR: 117 bpm BP: 145 / 85 mmHg Heart Rhythm: Sinus Rhythm Technical Quality: Good Exam Date: 08/22/2024 2:07 PM Exam Location: Echo Lab Exam Room: [facility] Patient Status: Outpatient Admit Date: 08/22/2024 Staff Ordering Physician: Holli Malone MD Post Splitter: Mariam Beltran RDCS Attending Provider: Holli Malone MD Referring Physician: WILI; Exam Type: CA echo doppler color flow Study Info Indications - shortness of breath Complete two-dimensional, color flow and Doppler transthoracic echocardiogram is performed. Summary 1. Complete two-dimensional, color flow and Doppler transthoracic echocardiogram is performed. 2. Left ventricular chamber dimension is normal. 3. Left ventricular systolic function is normal, estimated at 60-65%. 4. The left ventricular diastolic function is grade I diastolic dysfunction. 5. E/e' 8 is minimally elevated. 6. Left atrial chamber dimension is mildly enlarged. 7. Mild pulmonary hypertension, estimated pulmonary arterial systolic pressure is 47 mmHg. 8. There is trace pulmonic regurgitation. 9. The aortic root size at the sinus of Valsalva is borderline dilated at 4.1 cm. 10. Dilated inferior vena cava with >50% collapse upon inspiration consistent with elevated right atrial pressure, 10 mmHg. Left Ventricle E/e' 8 is minimally elevated. Left ventricular chamber dimension is normal. Left ventricular systolic function is normal, estimated at 60-65%. The left ventricular diastolic function is grade I diastolic dysfunction. Right Ventricle Right ventricular systolic function is normal and with normal TAPSE 2.1 cm. Right ventricular chamber dimension is normal. Left Atria Left atrial chamber dimension is mildly enlarged. Right Atria Right atrial chamber dimension is normal. Aortic Valve The aortic valve is trileaflet. There is no aortic valve stenosis. There is no aortic valve regurgitation. Pulmonic Valve There is trace pulmonic regurgitation. Mitral Valve There is no mitral valve stenosis. There is no mitral valve regurgitation. Tricuspid Valve There is no tricuspid valve regurgitation. Mild pulmonary hypertension, estimated pulmonary arterial systolic pressure is 47 mmHg. Pericardium/Pleural There is no pericardial effusion. Inferior Vena Cava Dilated inferior vena cava with >50% collapse upon inspiration consistent with elevated right atrial pressure, 10 mmHg. Aorta The aortic root size at the sinus of Valsalva is borderline dilated at 4.1 cm. Left Ventricular Outflow Tract Name Value Normal LVOT 2D LVOT Diameter 2.4 cm LVOT Doppler LVOT Peak Gradient 8 mmHg LVOT Mean Gradient 4 mmHg LVOT VTI 23 cm LVOT VTI/AV VTI Ratio 0.9 LVOT Stroke Volume 101 ml LVOT CO 9.0 l/min LVOT CI 3.2 l/min/m2 Pulmonic Valve Name Value Normal PV Doppler PV Peak Gradient 5 mmHg PV Regurgitation Doppler LA Peak End Diastolic Velocity 115 cm/s Mitral Valve Name Value Normal MV Doppler MV Peak Gradient 4 mmHg MV Mean Gradient 2 mmHg MV Decel Fleming 295 cm/s2 MV PHT 73 ms MV Area (PHT) 3.0 cm2 4.0-5.0 MV Area (Cont Eq VTI) 4.8 cm2 MV Diastolic Function MV E Peak Velocity 74 cm/s MV A Peak Velocity 84 cm/s MV E/A 0.9 MV Decel Time 251 ms MV Annular TDI MV E/e' (Septal) 10.5 <=8.0 MV E/e' (Lateral) 7.6 <=8.0 MV E/e' (Average) 9.1 Tricuspid Valve Name Value Normal TV Regurgitation Doppler TR Peak Velocity 304 cm/s TR Peak Gradient 37 mmHg Estimated PAP/RSVP RA Pressure 10 mmHg <=5 PA Systolic Pressure 47 mmHg <36 RV Systolic Pressure 47 mmHg <36 Aortic Valve Name Value Normal AV Doppler AV Peak Velocity 147 cm/s AV Peak Gradient 9 mmHg AV Mean Gradient 5 mmHg AV VTI 25 cm AV Area (Cont Eq VTI) 4.0 cm2 >=3.0 AV Area (Cont Eq Omar) 4.2 cm2 AV Regurgitation 2D LVOT Area 4.4 cm2 Ventricles Name Value Normal LV Dimensions 2D/MM IVS Diastolic Thickness (2D) 1.0 cm 0.6-1.0 LVID Diastole (2D) 5.8 cm 4.2-5.8 LVIW Diastolic Thickness (2D) 1.0 cm 0.6-1.0 LVID Systole (2D) 3.7 cm 2.5-4.0 LVOT Diameter 2.4 cm LV Mass (2D Cubed) 232.68 g 88.00-224.00 LV Mass Index (2D Cubed) 84 g/m2 49-115 Relative Wall Thickness (2D) 0.34 LV Fractional Shortening/Ejection Fraction 2D/MM LV Fractional Shortening (2D) 36 % 25-43 LV EF (2D Teicholz) 65 % 52-72 LV Diastolic Volume (4C MOD) 176 ml LV EF (4C MOD) 68 % LV Diastolic Volume (2C MOD) 134 ml LV EF (2C MOD) 64 % LV Diastolic Volume (BP MOD) 157 ml 62-150 LV Diastolic Volume Index (BP MOD) 57 ml/m2 34-74 LV Systolic Volume (BP MOD) 52 ml 21-61 LV Systolic Volume Index (BP MOD) 19 ml/m2 11-31 LV EF (BP MOD) 67 % 52-72 LV Diastolic Length (4C) 9.8 cm LV Systolic Length (4C) 8.3 cm LV Stroke Volume (4C MOD) 119 ml LV CO (BP MOD) 9.4 l/min LV CI (BP MOD) 3.4 l/min/m2 Atria Name Value Normal LA Dimensions LA Volume (4C A-L) 85 ml RA Dimensions RA Area (4C) 16.7 cm2 <=18.0 Report Signatures
[2024-08-22 14:00] VITALS: BP 146/87; PULSE 96; RESP 20; TEMP 36.8; O2SAT 99
[2024-08-22] MEDS: AMPICILLIN SULB 1.5 GM/NS 50ML 1.5 GM/50 ML VIAL IVPB ×2 (14:12→20:50)
[2024-08-22] MEDS: dexAMETHasone 2 MG TABLET 6 MG PO (14:12)
--- NOTE | 2024-08-22 15:19 | P.CONS_ITS ---
Assessment and Plan Assessment and plan (1) Abnormal CT scan, gallbladder: Code(s): R93.2 - Abnormal findings on diagnostic imaging of liver and biliary tract Status: Acute Assessment and Plan: Patient admitted to the hospital with bilateral pulmonary emboli and main complaints of upper back pain. He also has COVID. His workup with CTA showed a distended gallbladder without evidence of gallbladder wall thickening or pericholecystic fluid. No gallstones were noted on CT scan. The patient has no history of pain in the right upper quadrant the abdomen with eating. He is able to eat most foods aside from may be some late night pizza which causes and have some indigestion. Bladder ultrasound has been ordered. If there is no gallstones noted then certainly I would not feel that he needs to have any further evaluation of his gallbladder. He clinically does not appear to have acute cholecystitis at this time. Continue present care and management for treatment of the pulmonary emboli as per hospitalist service. Patient have diet as long as he is not having right upper quadrant abdominal pain with eating or severe nausea vomiting with eating. Will follow-up on the results of the abdominal ultrasound. HPI Data of Consult Date/Time: 08/22/24 15:19 Requesting Physician: Holli Malone MD Primary Care Provider: Marta Loving MD Consult Narrative Reason for consult: Abnormal CT scan of the gallbladder Narrative: Vincent Davis is a 63 year old male admitted to the hospital when he presents to the emergency room with severe upper back pain. He states he has had this pain for about 4 months but it persists and has been particularly bad recently. In the emergency room he was worked up and found to have bilateral pulmonary emboli on CTA of the chest. Other lab results showed he was positive for COVID. On the CTA the gallbladder was distended but there was no gallbladder wall thickening or pericholecystic fluid. Gallstones were not seen on the CT scan however. No biliary dilatation was noted on CT scan. White blood cell count is 12,000. Patient states that he does not have any issues with eating in general. Sometimes eating pizza later tonight causes and have some bloating and acid reflux. He denies having any right upper quadrant abdominal pain at this time and no pain in the past with eating in that area. Abdominal ultrasound has not been performed yet. Review of Systems 2 Review of Systems: The remainder of the review of systems to include constitutional, HEENT, cardiovascular, respiratory, GI, , integumentary, musculoskeletal, endocrine, immunologic, hematologic, psychiatric, and neurologic are all negative except for which is mentioned above in the HPI. [facility] Past Medical History Medical History Acute bronchitis Cutaneous horn Skin tag, acquired BPPV (benign paroxysmal positional vertigo) Orthopedic aftercare for joint replacement Orthopedic aftercare Tear of meniscus of left knee Primary osteoarthritis of left knee Left knee pain Arthritis of left hip Left hip pain Neuropathy l hand Benign labile hypertension Elevated prolactin level Enlarged prostate without lower urinary tract symptoms (luts) Gastro-esophageal reflux disease without esophagitis Hypogonadism in male Mixed hyperlipidemia Surgical History Surgical History Hx of colonoscopy 05.17.12 History of meniscectomy of left knee (~11/25/21) Medial H/O medial meniscus repair of right knee H/O adenoidectomy Hx of tonsillectomy H/O eye surgery Family History Family History Father Diabetes mellitus Hypertension Family history of elevated blood lipids Grandparent Diabetes mellitus Family history of cardiovascular disease Cerebrovascular accident Mother Hypertension Family history of cardiovascular disease Acute myocardial infarction Family history of Alzheimer's disease Family history of coronary artery disease Social History Social History Smoking packs per day: 1 Smoking cigarettes per day: 20.0 Years smoked: 10 Smoking pack-years: 10.00 Smoking status: Former smoker Second hand tobacco smoke exposure: No Additional smoking assessment comments: PT DENIES ALL FORMS OF TOBACCO USE Alcohol intake: never Alcohol use details: occasionally Substance use: never Substance use type: does not use Do You Feel Safe in your Home?: Yes Lack of Transportation: No Lack of Food: Never True Current Housing: I Have Housing Concerned About Future Housing: No Difficulty Paying Gas/Electric Bills: No Difficulty Paying for Meds: No Currently Unemployed: No Education: Associate Degree Difficulty w/ Childcare or Family Care: No Living arrangements: with family Spiritual care concerns: No Meds Home Medications and Allergies Home Medications ?Medication ?Instructions ?Recorded ?Confirmed ?Type antiarthritic combination no.2 900 900 mg PO DAILY 11/11/21 08/22/24 History mg tablet (glucosamine-chondroitin) Ez Tears 1 tab-cap ophthalmic (eye) QAM 04/19/22 08/22/24 History aspirin 81 mg tablet,delayed 81 mg PO .QOD 12/08/22 08/22/24 History release (Adult Low Dose Aspirin) niacin 1,000 mg tablet,extended 1,500 mg PO .COMPLEX 08/30/23 08/22/24 History release syringe with needle 3 mL 21 gauge #26 ea 01/09/24 08/22/24 Rx x 1 (BD Luer-Kandace Syringe) OneTouch Verio Mid Control (blood See Rx Instructions miscellaneous 01/15/24 08/22/24 Rx glucose control, normal) .COMPLEX #1 ea blood sugar diagnostic (OneTouch #100 ea 01/15/24 08/22/24 Rx Verio test strips) lancets 33 gauge (OneTouch Delica #100 ea 01/15/24 08/22/24 Rx Plus Lancet) omega-3 acid ethyl esters 1 gram See Rx Instructions .Route 04/15/24 08/22/24 Rx capsule .COMPLEX #360 caps needle (disp) 23 gauge 23 gauge x See Rx Instructions .Route 04/22/24 08/22/24 Rx 1 (Hypodermic [place]) .COMPLEX #7 ea sildenafil 50 mg tablet (Viagra) 50 mg PO DAILY PRN sexual activity 05/01/24 08/22/24 Rx #10 tabs testosterone cypionate 200 mg/mL 200 mg IM .C0qimws #10 mL 05/27/24 08/22/24 Rx intramuscular oil metformin 500 mg tablet,extended 500 mg PO BID #180 tabs 07/15/24 08/22/24 Rx release 24 hr Allergies Allergy/AdvReac Type Severity Reaction Status Date / Time neomycin Allergy Severe Swelling Verified 08/22/24 05:43 of the Eye ezetimibe AdvReac Intermediate muscle and Verified 08/22/24 05:43 leg aches, dizziness Vital Signs Vital Signs - 24 hr 08/22/24 05:54 08/22/24 08:25 08/22/24 14:45 Temperature 36.7 C Pulse Rate 97 82 Respiratory Rate 17 13 Blood Pressure 187/99 H 139/75 Pulse Oximetry 98 94 Oxygen Delivery Room Air Exam 2 Const: General: comfortable and no acute distress HENMT: Ears: TM's normal bilaterally Face/Nose/Sinus: Normal nares present Mouth: Yes moist mucous membranes Eyes: General: appearance normal, both eyes and all related structures S clera: sclerae normal Pupils: Equal, round and reactive pupils present E OM: EOMs intact bilaterally Neck: Neck: supple and no JVD Resp: Effort & Inspection: normal respiratory effort Auscultation: clear to auscultation bilaterally Cardio: Rate: regular rate Rhythm: regular rhythm GI: Other: Abdomen is soft and moderately obese. It is nondistended. He has no tenderness to palpation epigastric or right upper quadrant regions of the abdomen. No ventral hernias or masses are noted. Abdominal exam is benign. Skin: General skin exam: normal color and no rashes or lesions noted Neuro: General: gait normal Speech: normal speech Motor exam (neuro): 5 /5 motor strength present throughout Sensory Exam: normal sensation Extrem: General: normal to inspection Psych: Mental Status: mental status grossly normal Affect: normal affect Results Labs 08/22/24 11:32 08/22/24 07:54 Labs: Short CBC 08/22/24 08/22/24 Range/Units 07:54 11:32 WBC 10.6 H 12.1 H (4.5-10.0) K/mm3 Hgb 16.7 D 15.7 (14.0-18.0) g/dL Hct 48.9 46.7 (42.0-52.0) % Plt Count 241 269 (150-375) k/mm3 BMP 08/22/24 07:54 Sodium 136 L Potassium 4.2 Chloride 99 Carbon Dioxide 31 H BUN 18 Creatinine 0.77 Glucose 134 H Calcium 8.5 Cardiac Enzymes 08/22/24 08/22/24 Range/Units 07:54 11:32 Troponin I < 0.012 < 0.012 (0.000-0.034) ng/mL Liver Function 08/22/24 Range/Units 07:54 Total Bilirubin 1.7 H (0.2-1.3) mg/dL AST 21 (17-59) U/L ALT 20 (6-50) U/L Alkaline Phosphatase 61 (38-126) U/L Albumin 4.2 (3.5-5.1) g/dL Urine 08/22/24 Range/Units 07:55 Urine Color Yellow (Yellow) Urine Appearance Clear (Clear) Urine pH 5.5 (5.0-9.0) Ur Specific [place] 1.022 (1.001-1.035) Urine Protein Negative (Negative) mg/dL Urine Glucose (UA) Negative (Negative) mg/dL Imaging Radiologist's impression: CT Scan Report Signed Patient: Vincent Davis : 1960 MR#: [id number] Age: 63 Acct:[id number] Loc: [facility] ADM Date: 08/22/24Attending Dr: Ordering Physician: Barrie Faustin MD Date of Service: 08/22/24 Procedure(s): CTA chest PE abdomen pel Accession Number(s): [id number] cc: Barrie Faustin MD; Marta Loving MD~ EXAMINATION: CTA chest PE abdomen pel DATE: 08/22/2024 08:41 INDICATION: Right flank pain. TECHNIQUE: Computed tomography angiography (CTA) of the chest was performed with 100 mL Omnipaque-350 intravenous contrast timed to evaluate the pulmonary arteries. Coronal maximum intensity projection 3D-reconstructions were created by the technologist. Computed tomography (CT) of the abdomen and pelvis was performed with intravenous contrast. Automated exposure control and iterative reconstruction technique were employed. The dose-length product was 3163.78 mGy- cm. COMPARISON: CT abdomen and pelvis 02/17/2007. FINDINGS: CTA chest: There is mild scarring in paraspinal right lower lobe. No pleural effusion. The heart size is normal. There are coronary artery calcifications. No pericardial effusion. There are small pulmonary emboli in right middle lobe, left upper lobe, and left lower lobe. There are bridging endplate osteophytes at multiple levels in the spine, consistent with diffuse idiopathic skeletal hyperostosis (DISH). CT abdomen and pelvis: The liver and spleen are normal. The gallbladder is distended. The pancreas, adrenal glands, and right kidney are normal. There is a 5 mm cyst in left kidney. The prostate is mildly enlarged. There are bilateral inguinal hernias containing fat. There are no dilated loops of bowel. The appendix is normal. There are no pathologically enlarged lymph nodes. There is no free intraperitoneal fluid. There is moderate lumbar spondylosis. IMPRESSION: 1. Acute bilateral pulmonary emboli. No right heart strain. 2. Gallbladder distention, which may be secondary to fasting. Correlate with physical exam to exclude acute cholecystitis. 3. Bilateral inguinal hernias containing fat. Reviewed, dictated and finalized at location A. IGERATOR TESTER Please be advised this is a medical document. It is intended for [id number] communication. It is written in medical language and may contain unfamiliar abbreviations or verbiage. Medical documents are intended to carry relevant information, facts as evident, and the clinical opinion of the practitioner at the time of the encounter. This report may have been done utilizing a voice recognition system. Attempts have been made to correct errors. However, there may be uncorrected grammatical, spelling, and recognition errors present. The file time of this note does not necessarily represent the time the patient was seen. Dictated By: Braxton Vila MD 08/22/24 0841 Signed By: <Electronically signed by Braxton Vila MD in [place]>
[2024-08-22 16:00] VITALS: PULSE 98
[2024-08-22 20:00] VITALS: PULSE 85
[2024-08-22 20:13] LABS: INR 1.1; Prothrombin Time 14.4 Seconds (11.1-14.7)
[2024-08-22 20:14] LABS: Partial Thromboplastin Time 40.3 Seconds (22.3-36.8)
[2024-08-22] MEDS: NIACIN SA 500 MG TABLET 1500 MG PO (20:50)
[2024-08-22 21:30] VITALS: BP 118/69; PULSE 85; RESP 12; TEMP 36.3; O2SAT 97
[2024-08-23] VITALS (10 sets, daily range): BP systolic 136–161; BP diastolic 80–88; PULSE 76–89; RESP 12–20; TEMP 36.3–36.9; O2SAT 94–99
[2024-08-23 03:26] LABS: Basophils Percent Auto 0.1 % (0.2-1.2); Hematocrit 42.6 % (42.0-52.0); Hemoglobin 14.8 g/dL (14.0-18.0); Immature Granulocyte Absolute 0.03 K/mm3 (0.00-0.031); Immature Granulocyte Percent A 0.4 % (0-0.5); Lymphocytes Absolute Auto 0.43 K/mm3 (0.9-3.2); Lymphocytes Percent Auto 5.6 % (18.3-44.2); Mean Corpuscular HGB Conc 34.7 g/dl (32-36); Mean Corpuscular Hemoglobin 30.4 pg (26-34); Mean Corpuscular Volume 87.5 fl (80-100); Mean Platelet Volume 9.2 fl (7.4-10.4); Monocytes Absolute Auto 0.4 K/mm3 (0.1-0.6); Monocytes Percent Auto 5.4 % (2.6-8.5); Neutrophils Absolute Auto 6.8 K/mm3 (1.3-6.7); Neutrophils Percent Auto 88.5 % (45.5-73.1); Platelet Count Result 212 k/mm3 (150-375); Red Blood Count 4.87 M/mm3 (4.6-6.20); Red Cell Distribution Width 11.9 % (11.5-14.5); White Blood Count 7.7 K/mm3 (4.5-10.0)
[2024-08-23 03:40] LABS: Partial Thromboplastin Time 100.5 Seconds (22.3-36.8)
[2024-08-23] MEDS: HEPARIN SOD/D5W 100 UNITS/ML 25,000 UNITS/250 ML BAG 16 UNITS IV CONT (03:57)
[2024-08-23] MEDS: AMPICILLIN SULB 1.5 GM/NS 50ML 1.5 GM/50 ML VIAL IVPB (04:00)
--- NOTE | 2024-08-23 09:15 | WPDPN ---
Progress Note: A&P Assessment and Plan (1) Abnormal CT scan, gallbladder: Code(s): R93.2 - Abnormal findings on diagnostic imaging of liver and biliary tract Status: Acute Assessment and Plan: Follow-up ultrasound of the gallbladder shows no gallbladder abnormalities. Specifically other no gallstones and gallbladder sludge in the gallbladder wall is normal appearing. His back pain is not likely due to his gallbladder. The abnormal imaging of the gallbladder on CT scan is most likely due to fasting state. No further evaluation workup from a general surgery standpoint is needed. Surgery will sign off. Subjective Date/time seen: 08/23/24 09:15 Interval history: Patient seems to be doing pretty well today. Still complaining of some back pain. He is eating a regular diet without any right upper quadrant abdominal pain or any nausea vomiting. Abdominal ultrasound showed normal gallbladder without gallbladder wall thickening or pericholecystic fluid. No gallstones or gallbladder sludge was noted. Exam GI: Other: Abdomen is soft and benign. No tenderness. Objective Data Vital Signs Vital Signs: Vital Signs - 24 hr 08/22/24 14:00 08/22/24 14:45 08/22/24 16:00 Temperature 36.8 C Pulse Rate 96 98 Respiratory Rate 20 Blood Pressure 146/87 H Pulse Oximetry 99 Oxygen Delivery Room Air 08/22/24 20:00 08/22/24 20:00 08/22/24 21:30 Temperature 36.3 C L Pulse Rate 85 85 Respiratory Rate 12 Blood Pressure 118/69 Pulse Oximetry 97 Oxygen Delivery Room Air 08/23/24 00:00 08/23/24 04:00 08/23/24 05:27 Temperature 36.9 C Pulse Rate 80 82 76 Respiratory Rate 12 Blood Pressure 137/83 Pulse Oximetry 97 Oxygen Delivery Intake/Output Intake/Output: Intake & Output 08/20/24 08/21/24 08/22/24 08/23/24 23:59 23:59 23:59 23:59 Intake Total 2432.0 609.9 Balance 2432.0 609.9 Meds/Results Medications: Active Medications Generic Name Dose Route Start Last Admin Trade Name Freq PRN Reason Stop Dose Admin Acetaminophen 650 mg 08/22/24 09:24 Acetaminophen 325 Mg Tablet PO Q4H PRN Mild Pain (1-3) or Fever Aspirin 81 mg 08/23/24 09:00 Aspirin 81 Mg Enteric Tablet PO Q48HR [facility] Dexamethasone 6 mg 08/22/24 13:50 08/22/24 14:12 Dexamethasone 2 Mg Tablet PO 08/31/24 08:01 6 mg DAILY@0800 SOPHIE Administration Heparin Sodium (Porcine) 9,000 units 08/22/24 09:23 08/22/24 21:04 Heparin Sodium 5,000 Units/Ml Vial IV PUSH 9,000 units PRN PRN Administration aPTT less than 55 seconds Heparin Sodium (Porcine) 4,500 units 08/22/24 09:23 Heparin Sodium 5,000 Units/Ml Vial IV PUSH PRN PRN aPTT 55 - 70 seconds Heparin Sodium/Dextrose 25,000 units in 250 mls @ 16 mls/hr 08/22/24 09:25 08/23/24 03:57 Heparin Sodium/D5w 100 Units/Ml IV CONT 1,600 units/hr .[id number] SOPHIE 16 mls/hr Administration Protocol 1,600 UNITS/HR Ampicillin Sodium/Sulbactam Sodium 1.5 gm in 50 mls @ 100 mls/hr 08/22/24 14:00 08/23/24 04:00 Unasyn 1.5 Gm/Ns 50 Ml IVPB 100 mls/hr Q6H SOPHIE Administration Niacin 1,500 mg 08/22/24 21:00 08/22/24 20:50 Niacin Sa 500 Mg Tablet PO 1,500 mg HS SOPHIE Administration Nonformulary Drug ( 1 each 08/22/24 13:34 Antiarthritic XX 08/23/24 13:33 Combination No.2 [ PRN PRN Glucosamine- PROTOCOL Chondroitin] 900 Mg Tablet) Ondansetron HCl 4 mg 08/22/24 09:24 Ondansetron Inj 4 Mg/2 Ml Vial IV PUSH Q4H PRN Nausea Perflutren Lipid Microsphere 0 ml 08/22/24 13:41 Perflutren Lipid Microspheres 1.5 Ml Vial Diluted To 10 Ml Total Volume IV PUSH 08/25/24 13:41 ONCE PRN adequate visualization Protocol Radiology Results: ITS Impressions Chest/Abdomen/Pelvis CTA 08/22/24 08:41 IMPRESSION: 1. Acute bilateral pulmonary emboli. No right heart strain. 2. Gallbladder distention, which may be secondary to fasting. Correlate with physical exam to exclude acute cholecystitis. 3. Bilateral inguinal hernias containing fat. Abdomen Ultrasound 08/23/24 07:53 IMPRESSION: 1. Diffuse hepatic steatosis. Labs Labs: Laboratory Results - last 24 hr 08/22/24 08/22/24 08/22/24 07:54 11:32 13:13 WBC 12.1 H RBC 5.29 Hgb 15.7 Hct 46.7 MCV 88.3 MCH 29.7 MCHC 33.6 RDW 11.9 Plt Count 269 MPV 9.1 Immature Gran % (Auto) 0.6 H Neut % (Auto) 91.0 H Lymph % (Auto) 3.1 L [place] % (Auto) 4.8 Eos % (Auto) 0.2 Baso % (Auto) 0.3 Lymph # (Auto) 0.38 L [place] # (Auto) 0.6 Eos # (Auto) 0.0 Baso # (Auto) 0.0 Abs Immat Gran (auto) 0.07 H Absolute Neuts (auto) 11.0 H Absolute Nucleated RBC 0.000 Nucleated RBC % 0.0 PT 13.5 15.8 H INR 1.0 1.2 APTT 31.4 155.5 H Troponin I < 0.012 08/22/24 08/23/24 19:57 03:18 WBC 7.7 RBC 4.87 Hgb 14.8 Hct 42.6 MCV 87.5 MCH 30.4 MCHC 34.7 RDW 11.9 Plt Count 212 MPV 9.2 Immature Gran % (Auto) 0.4 Neut % (Auto) 88.5 H Lymph % (Auto) 5.6 L [place] % (Auto) 5.4 Eos % (Auto) 0.0 Baso % (Auto) 0.1 L Lymph # (Auto) 0.43 L [place] # (Auto) 0.4 Eos # (Auto) 0.0 Baso # (Auto) 0.0 Abs Immat Gran (auto) 0.03 Absolute Neuts (auto) 6.8 H Absolute Nucleated RBC 0.000 Nucleated RBC % 0.0 PT 14.4 INR 1.1 APTT 40.3 H 100.5 H Troponin I Imaging Radiologist's impression: Ultrasound Report Signed Patient: Vincent Davis : 1960 MR#: [id number] Age: 63 Acct:[id number] Loc: [id number] ADM Date: 08/22/24Attending Dr: Holli Malone M.D. Ordering Physician: Holli Malone MD Date of Service: 08/23/24 Procedure(s): US abdomen limited Accession Number(s): [id number] cc: Marta Loving MD; Holli Malone MD~ EXAMINATION: US abdomen limited DATE: 08/23/2024 07:50 INDICATION: Right flank pain. TECHNIQUE: Multiple grayscale and Doppler ultrasound images of the abdomen were obtained. COMPARISON: CT 08/22/2024 FINDINGS: The visualized portions of the head, body, and tail of the pancreas are normal. There is diffuse hepatic steatosis. There is normal flow in main portal vein. The gallbladder is normal in size. No gallstones or gallbladder wall thickening. There is no sonographic Crockett's sign. The common duct is normal and measures 5 mm. IMPRESSION: 1. Diffuse hepatic steatosis. Reviewed, dictated and finalized at location A. CTOR OF QUALITY CONTROL
--- NOTE | 2024-08-23 09:22 | PM.IMPN ---
Progress Note: A&P Assessment and Plan (1) Acute pulmonary embolism: Code(s): I26.99 - Other pulmonary embolism without acute cor pulmonale Status: Acute (2) Back pain: Code(s): M54.9 - Dorsalgia, unspecified Status: Acute (3) Obesity: Code(s): E66.9 - Obesity, unspecified Status: Acute (4) COVID-19 virus infection: Code(s): U07.1 - COVID-19 Status: Acute Plan Acute pulmonary embolism CT showed acute bilateral pulmonary emboli. No right heart strain. Patient has back pain in past few months, exertional dyspnea that is worse in past few days on heparin drip echocardiogram 1. Complete two-dimensional, color flow and Doppler transthoracic echocardiogram is performed. 2. Left ventricular chamber dimension is normal. 3. Left ventricular systolic function is normal, estimated at 60-65%. 4. The left ventricular diastolic function is grade I diastolic dysfunction. 5. E/e' 8 is minimally elevated. 6. Left atrial chamber dimension is mildly enlarged. 7. Mild pulmonary hypertension, estimated pulmonary arterial systolic pressure is 47 mmHg. 8. There is trace pulmonic regurgitation. 9. The aortic root size at the sinus of Valsalva is borderline dilated at 4.1 cm. 10. Dilated inferior vena cava with >50% collapse upon inspiration consistent with elevated right atrial pressure, 10 mmHg. Gallbladder distension Patient has leukocytosis, elevated total bilirubin Need to rule out acute cholecystitis abdomen ultrasound: The gallbladder is normal in size. No gallstones or gallbladder wall thickening. on Unasyn IV Consult general surgeon for evaluation treatment, appreciate consultation dc abx COVID infection No O2 desaturation No need antiviral medication now Start Decadron p.o. Obesity Patient is on metformin Follow-up A1c and fasting glucose Subjective Date/time seen: 08/23/24 09:22 Interval history: Patient is afebrile, blood pressure stable, no O2 desaturation, alter stone showed no acute cholecystitis of gallstone. White blood cell number normal. Exam Narrative: GENERAL: Pleasant, in no acute distress. Well-nourished. - EYES: EOMI. Anicteric. - HENT: Moist mucous membranes. - LUNGS: Clear to auscultation bilaterally, no wheezing, rhonchi, or rales. - CARDIOVASCULAR: Regular rate and rhythm. No murmur. No JVD. - ABDOMEN: Soft, non-tender and non-distended. No palpable masses. - EXTREMITIES: No edema. Peripheral pulses 2+. Non-tender. - NEUROLOGIC: No focal neurological deficits. CN II-XII grossly intact. - PSYCHIATRIC: Awake, Alert and oriented x 3. Appropriate mood and affect. - SKIN: No rashes or lesions. Warm. - LYMPH: No cervical lymphadenopathy. Objective Data Vital Signs Vital Signs: Vital Signs - 24 hr 08/22/24 14:00 08/22/24 14:45 08/22/24 16:00 Temperature 98.3 F Pulse Rate 96 98 Respiratory Rate 20 Blood Pressure 146/87 H Pulse Oximetry 99 Oxygen Delivery Room Air 08/22/24 20:00 08/22/24 20:00 08/22/24 21:30 Temperature 97.4 F L Pulse Rate 85 85 Respiratory Rate 12 Blood Pressure 118/69 Pulse Oximetry 97 Oxygen Delivery Room Air 08/23/24 00:00 08/23/24 04:00 08/23/24 05:27 Temperature 98.5 F Pulse Rate 80 82 76 Respiratory Rate 12 Blood Pressure 137/83 Pulse Oximetry 97 Oxygen Delivery Intake/Output Intake/Output: Intake & Output 08/20/24 08/21/24 08/22/24 08/23/24 23:59 23:59 23:59 23:59 Intake Total 2432.0 609.9 Balance 2432.0 609.9 Meds/Results Medications: Active Medications Generic Name Dose Route Start Last Admin Trade Name Freq PRN Reason Stop Dose Admin Acetaminophen 650 mg 08/22/24 09:24 Acetaminophen 325 Mg Tablet PO Q4H PRN Mild Pain (1-3) or Fever Aspirin 81 mg 08/23/24 09:00 Aspirin 81 Mg Enteric Tablet PO Q48HR [facility] Dexamethasone 6 mg 08/22/24 13:50 08/22/24 14:12 Dexamethasone 2 Mg Tablet PO 08/31/24 08:01 6 mg DAILY@0800 SOPHIE Administration Heparin Sodium (Porcine) 9,000 units 08/22/24 09:23 08/22/24 21:04 Heparin Sodium 5,000 Units/Ml Vial IV PUSH 9,000 units PRN PRN Administration aPTT less than 55 seconds Heparin Sodium (Porcine) 4,500 units 08/22/24 09:23 Heparin Sodium 5,000 Units/Ml Vial IV PUSH PRN PRN aPTT 55 - 70 seconds Heparin Sodium/Dextrose 25,000 units in 250 mls @ 16 mls/hr 08/22/24 09:25 08/23/24 03:57 Heparin Sodium/D5w 100 Units/Ml IV CONT 1,600 units/hr .[id number] SOPHIE 16 mls/hr Administration Protocol 1,600 UNITS/HR Ampicillin Sodium/Sulbactam Sodium 1.5 gm in 50 mls @ 100 mls/hr 08/22/24 14:00 08/23/24 04:00 Unasyn 1.5 Gm/Ns 50 Ml IVPB 100 mls/hr Q6H SOP[facility]IE Administration Niacin 1,500 mg 08/22/24 21:00 08/22/24 20:50 Niacin Sa 500 Mg Tablet PO 1,500 mg HS SOPHIE Administration Nonformulary Drug ( 1 each 08/22/24 13:34 Antiarthritic XX 08/23/24 13:33 Combination No.2 [ PRN PRN Glucosamine- PROTOCOL Chondroitin] 900 Mg Tablet) Ondansetron HCl 4 mg 08/22/24 09:24 Ondansetron Inj 4 Mg/2 Ml Vial IV PUSH Q4H PRN Nausea Perflutren Lipid Microsphere 0 ml 08/22/24 13:41 Perflutren Lipid Microspheres 1.5 Ml Vial Diluted To 10 Ml Total Volume IV PUSH 08/25/24 13:41 ONCE PRN adequate visualization Protocol Radiology Results: ITS Impressions Chest/Abdomen/Pelvis CTA 08/22/24 08:41 IMPRESSION: 1. Acute bilateral pulmonary emboli. No right heart strain. 2. Gallbladder distention, which may be secondary to fasting. Correlate with physical exam to exclude acute cholecystitis. 3. Bilateral inguinal hernias containing fat. Abdomen Ultrasound 08/23/24 07:53 IMPRESSION: 1. Diffuse hepatic steatosis. Labs Labs: Laboratory Results - last 24 hr 08/22/24 08/22/24 08/22/24 07:54 11:32 13:13 WBC 12.1 H RBC 5.29 Hgb 15.7 Hct 46.7 MCV 88.3 MCH 29.7 MCHC 33.6 RDW 11.9 Plt Count 269 MPV 9.1 Immature Gran % (Auto) 0.6 H Neut % (Auto) 91.0 H Lymph % (Auto) 3.1 L [place] % (Auto) 4.8 Eos % (Auto) 0.2 Baso % (Auto) 0.3 Lymph # (Auto) 0.38 L [place] # (Auto) 0.6 Eos # (Auto) 0.0 Baso # (Auto) 0.0 Abs Immat Gran (auto) 0.07 H Absolute Neuts (auto) 11.0 H Absolute Nucleated RBC 0.000 Nucleated RBC % 0.0 PT 13.5 15.8 H INR 1.0 1.2 APTT 31.4 155.5 H Troponin I < 0.012 08/22/24 08/23/24 19:57 03:18 WBC 7.7 RBC 4.87 Hgb 14.8 Hct 42.6 MCV 87.5 MCH 30.4 MCHC 34.7 RDW 11.9 Plt Count 212 MPV 9.2 Immature Gran % (Auto) 0.4 Neut % (Auto) 88.5 H Lymph % (Auto) 5.6 L [place] % (Auto) 5.4 Eos % (Auto) 0.0 Baso % (Auto) 0.1 L Lymph # (Auto) 0.43 L [place] # (Auto) 0.4 Eos # (Auto) 0.0 Baso # (Auto) 0.0 Abs Immat Gran (auto) 0.03 Absolute Neuts (auto) 6.8 H Absolute Nucleated RBC 0.000 Nucleated RBC % 0.0 PT 14.4 INR 1.1 APTT 40.3 H 100.5 H Troponin I
[2024-08-23 09:47] LABS: Partial Thromboplastin Time 60.6 Seconds (22.3-36.8)
[2024-08-23] MEDS: CYCLOBENZAPRINE HCL 5 MG TABLET PO ×3 (10:50→21:39)
[2024-08-23] MEDS: HEPARIN SODIUM 5,000 UNITS/ML VIAL 4500 UNITS IV PUSH (10:50)
[2024-08-23] MEDS: ASPIRIN 81 MG ENTERIC TABLET PO (10:53)
[2024-08-23] MEDS: dexAMETHasone 2 MG TABLET 6 MG PO (10:54)
[2024-08-23 12:27] LABS: Glucose Point of Care 104 mg/dl (65-105)
[2024-08-23 17:29] LABS: Partial Thromboplastin Time 71.2 Seconds (22.3-36.8)
[2024-08-23] MEDS: HEPARIN SOD/D5W 100 UNITS/ML 25,000 UNITS/250 ML BAG 18 UNITS IV CONT (18:56)
[2024-08-23] MEDS: NIACIN SA 500 MG TABLET 1500 MG PO (21:38)
[2024-08-23 23:20] LABS: Partial Thromboplastin Time 73.5 Seconds (22.3-36.8)
[2024-08-24] VITALS (9 sets, daily range): BP systolic 137–155; BP diastolic 71–91; PULSE 64–83; RESP 12–20; TEMP 36.1–36.6; O2SAT 96–99
[2024-08-24] MEDS: CYCLOBENZAPRINE HCL 5 MG TABLET PO ×3 (05:22→21:56)
[2024-08-24 06:38] LABS: Partial Thromboplastin Time 64.2 Seconds (22.3-36.8)
[2024-08-24] MEDS: HEPARIN SOD/D5W 100 UNITS/ML 25,000 UNITS/250 ML BAG 20 UNITS IV CONT (08:57)
[2024-08-24] MEDS: HEPARIN SODIUM 5,000 UNITS/ML VIAL 4500 UNITS IV PUSH (08:58)
--- NOTE | 2024-08-24 09:51 | P.PNIM_ITS ---
Progress Note: A&P Assessment and Plan (1) Acute pulmonary embolism: Code(s): I26.99 - Other pulmonary embolism without acute cor pulmonale Status: Acute (2) Back pain: Code(s): M54.9 - Dorsalgia, unspecified Status: Acute (3) Obesity: Code(s): E66.9 - Obesity, unspecified Status: Acute (4) COVID-19 virus infection: Code(s): U07.1 - COVID-19 Status: Acute Plan Acute pulmonary embolism CT showed acute bilateral pulmonary emboli. No right heart strain. Patient has back pain in past few months, exertional dyspnea that is worse in past few days on heparin drip echocardiogram 1. Complete two-dimensional, color flow and Doppler transthoracic echocardiogram is performed. 2. Left ventricular chamber dimension is normal. 3. Left ventricular systolic function is normal, estimated at 60-65%. 4. The left ventricular diastolic function is grade I diastolic dysfunction. 5. E/e' 8 is minimally elevated. 6. Left atrial chamber dimension is mildly enlarged. 7. Mild pulmonary hypertension, estimated pulmonary arterial systolic pressure is 47 mmHg. 8. There is trace pulmonic regurgitation. 9. The aortic root size at the sinus of Valsalva is borderline dilated at 4.1 cm. 10. Dilated inferior vena cava with >50% collapse upon inspiration consistent with elevated right atrial pressure, 10 mmHg. dc heparin drip and change to eliquis po Gallbladder distension Patient has leukocytosis, elevated total bilirubin Need to rule out acute cholecystitis abdomen ultrasound: The gallbladder is normal in size. No gallstones or gallbladder wall thickening. on Unasyn IV Consult general surgeon for evaluation treatment, appreciate consultation. Discontinue Unasyn COVID infection No O2 desaturation No need antiviral medication now Start Decadron p.o. Obesity Patient is on metformin Follow-up A1c and fasting glucose Subjective Date/time seen: 08/24/24 09:51 Interval history: Patient is afebrile, blood pressure stable, no O2 desaturation, back pain is improving, denies chest pain abdomen pain shortness breath Exam Narrative: GENERAL: Pleasant, in no acute distress. Well-nourished. - EYES: EOMI. Anicteric. - HENT: Moist mucous membranes. - LUNGS: Clear to auscultation bilateral ly, no wheezing, rhonchi, or rales. - CARDIOVASCULAR: Regular rate and rhyth m. No murmur. No JVD. - ABDOMEN: Soft, non-tender and non-dist ended. No palpable masses. - EXTREMITIES: No edema. Peripheral puls es 2+. Non-tender. - NEUROLOGIC: No focal neurological defi cits. CN II-XII grossly intact. - PSYCHIATRIC: Awake, Alert and oriented x 3. Appropriate mood and affect. - SKIN: No rashes or lesions. Warm. - LYMPH: No cervical lymphadenopathy. Objective Data Vital Signs Vital Signs: Vital Signs - 24 hr 08/23/24 12:00 08/23/24 12:00 08/23/24 12:25 Temperature 97.7 F Pulse Rate 89 89 88 Respiratory Rate 20 Blood Pressure 161/88 H Pulse Oximetry 99 Oxygen Delivery 08/23/24 14:00 08/23/24 16:00 08/23/24 20:00 Temperature 97.3 F L Pulse Rate 77 76 Respiratory Rate 16 Blood Pressure 146/80 H Pulse Oximetry 96 Oxygen Delivery Room Air 08/23/24 20:00 08/23/24 22:00 08/24/24 00:00 Temperature 97.5 F L Pulse Rate 88 85 74 Respiratory Rate 18 Blood Pressure 136/87 Pulse Oximetry 94 Oxygen Delivery 08/24/24 04:00 08/24/24 06:00 Temperature 97 F L Pulse Rate 82 74 Respiratory Rate 18 Blood Pressure 155/91 H Pulse Oximetry 98 Oxygen Delivery Intake/Output Intake/Output: Intake & Output 08/21/24 08/22/24 08/23/24 08/24/24 23:59 23:59 23:59 23:59 Intake Total 2432.0 1569.9 750.0 Balance 2432.0 1569.9 750.0 Meds/Results Medications: Active Medications Generic Name Dose Route Start Last Admin Trade Name Freq PRN Reason Stop Dose Admin Acetaminophen 650 mg 08/22/24 09:24 Acetaminophen 325 Mg Tablet PO Q4H PRN Mild Pain (1-3) or Fever Aspirin 81 mg 08/23/24 09:00 08/23/24 10:53 Aspirin 81 Mg Enteric Tablet PO 81 mg Q48HR [facility] Administration Cyclobenzaprine HCl 5 mg 08/23/24 09:25 08/24/24 05:22 Cyclobenzaprine Hcl 5 Mg Tablet PO 5 mg Q8HR SOP[facility]IE Administration Dexamethasone 6 mg 08/22/24 13:50 08/23/24 10:54 Dexamethasone 2 Mg Tablet PO 08/31/24 08:01 6 mg DAILY@0800 SOPHIE Administration Heparin Sodium (Porcine) 9,000 units 08/22/24 09:23 08/22/24 21:04 Heparin Sodium 5,000 Units/Ml Vial IV PUSH 9,000 units PRN PRN Administration aPTT less than 55 seconds Heparin Sodium (Porcine) 4,500 units 08/22/24 09:23 08/24/24 08:58 Heparin Sodium 5,000 Units/Ml Vial IV PUSH 4,500 units PRN PRN Administration aPTT 55 - 70 seconds Heparin Sodium/Dextrose 25,000 units in 250 mls @ 20 mls/hr 08/22/24 09:25 08/24/24 08:57 Heparin Sodium/D5w 100 Units/Ml IV CONT 2,000 units/hr .[id number] [facility] 20 mls/hr Administration Protocol 2,000 UNITS/HR Niacin 1,500 mg 08/22/24 21:00 08/23/24 21:38 Niacin Sa 500 Mg Tablet PO 1,500 mg HS SOPHIE Administration Ondansetron HCl 4 mg 08/22/24 09:24 Ondansetron Inj 4 Mg/2 Ml Vial IV PUSH Q4H PRN Nausea Perflutren Lipid Microsphere 0 ml 08/22/24 13:41 Perflutren Lipid Microspheres 1.5 Ml Vial Diluted To 10 Ml Total Volume IV PUSH 08/25/24 13:41 ONCE PRN adequate visualization Protocol Radiology Results: ITS Impressions Chest/Abdomen/Pelvis CTA 08/22/24 08:41 IMPRESSION: 1. Acute bilateral pulmonary emboli. No right heart strain. 2. Gallbladder distention, which may be secondary to fasting. Correlate with physical exam to exclude acute cholecystitis. 3. Bilateral inguinal hernias containing fat. Abdomen Ultrasound 08/23/24 07:53 IMPRESSION: 1. Diffuse hepatic steatosis. Labs Labs: Laboratory Results - last 24 hr 08/23/24 08/23/24 08/23/24 12:10 17:04 23:02 APTT 71.2 H 73.5 H POC Capillary Glucose 104 08/24/24 06:16 APTT 64.2 H POC Capillary Glucose
[2024-08-24] MEDS: APIXABAN 5 MG TABLET 10 MG PO ×2 (12:41→21:55)
[2024-08-24] MEDS: dexAMETHasone 2 MG TABLET 6 MG PO (12:51)
[2024-08-24] MEDS: NIACIN SA 500 MG TABLET 1500 MG PO (21:55)
[2024-08-25] VITALS: PULSE 69
[2024-08-25 04:00] VITALS: PULSE 63
[2024-08-25 05:13] VITALS: BP 145/79; PULSE 60; RESP 12; TEMP 36.1; O2SAT 97
[2024-08-25] MEDS: CYCLOBENZAPRINE HCL 5 MG TABLET PO (06:52)
[2024-08-25 08:00] VITALS: PULSE 65
[2024-08-25] MEDS: dexAMETHasone 2 MG TABLET 6 MG PO (09:04)
[2024-08-25] MEDS: APIXABAN 5 MG TABLET 10 MG PO (09:04)
[2024-08-25] MEDS: ASPIRIN 81 MG ENTERIC TABLET PO (09:04)
[2024-08-25] MEDS: polyethylene glycoL 3350 17 GM POWD.PACK PO (09:05)
--- NOTE | 2024-08-25 09:08 | P.PNIM_ITS ---
Progress Note: A&P Assessment and Plan (1) Acute pulmonary embolism: Code(s): I26.99 - Other pulmonary embolism without acute cor pulmonale Status: Acute (2) Back pain: Code(s): M54.9 - Dorsalgia, unspecified Status: Acute (3) Obesity: Code(s): E66.9 - Obesity, unspecified Status: Acute (4) COVID-19 virus infection: Code(s): U07.1 - COVID-19 Status: Acute Plan Acute pulmonary embolism CT showed acute bilateral pulmonary emboli. No right heart strain. Patient has back pain in past few months, exertional dyspnea that is worse in past few days on heparin drip echocardiogram 1. Complete two-dimensional, color flow and Doppler transthoracic echocardiogram is performed. 2. Left ventricular chamber dimension is normal. 3. Left ventricular systolic function is normal, estimated at 60-65%. 4. The left ventricular diastolic function is grade I diastolic dysfunction. 5. E/e' 8 is minimally elevated. 6. Left atrial chamber dimension is mildly enlarged. 7. Mild pulmonary hypertension, estimated pulmonary arterial systolic pressure is 47 mmHg. 8. There is trace pulmonic regurgitation. 9. The aortic root size at the sinus of Valsalva is borderline dilated at 4.1 cm. 10. Dilated inferior vena cava with >50% collapse upon inspiration consistent with elevated right atrial pressure, 10 mmHg. dc heparin drip and change to eliquis po Continue Eliquis p.o. 10 mg b.i.d. for 7 days and then 5 mg b.i.d. for total 3 months Gallbladder distension Patient has leukocytosis, elevated total bilirubin Need to rule out acute cholecystitis abdomen ultrasound: The gallbladder is normal in size. No gallstones or gallbladder wall thickening. on Unasyn IV Consult general surgeon for evaluation treatment, appreciate consultation. Discontinue Unasyn COVID infection No O2 desaturation No need antiviral medication now Received Decadron p.o. Obesity Patient is on metformin Follow-up A1c and fasting glucose Subjective Date/time seen: 08/25/24 09:08 Interval history: Patient is afebrile, blood pressure stable, no O2 desaturation, no new issue even overnight Exam Narrative: GENERAL: Pleasant, in no acute distress. Well-nourished. - EYES: EOMI. Anicteric. - HENT: Moist mucous membranes. - LUNGS: Clear to auscultation bilateral ly, no wheezing, rhonchi, or rales. - CARDIOVASCULAR: Regular rate and rhyth m. No murmur. No JVD. - ABDOMEN: Soft, non-tender and non-dist ended. No palpable masses. - EXTREMITIES: No edema. Peripheral puls es 2+. Non-tender. - NEUROLOGIC: No focal neurological defi cits. CN II-XII grossly intact. - PSYCHIATRIC: Awake, Alert and oriented x 3. Appropriate mood and affect. - SKIN: No rashes or lesions. Warm. - LYMPH: No cervical lymphadenopathy. Objective Data Vital Signs Vital Signs: Vital Signs - 24 hr 08/24/24 12:00 08/24/24 14:00 08/24/24 16:00 Temperature 97.6 F Pulse Rate 83 75 76 Respiratory Rate 20 Blood Pressure 141/80 H Pulse Oximetry 99 Oxygen Delivery 08/24/24 20:00 08/24/24 20:00 08/24/24 21:45 Temperature 97.8 F Pulse Rate 64 66 Respiratory Rate 12 Blood Pressure 137/71 Pulse Oximetry 96 Oxygen Delivery Room Air 08/25/24 00:00 08/25/24 04:00 08/25/24 05:13 Temperature 96.9 F L Pulse Rate 69 63 60 Respiratory Rate 12 Blood Pressure 145/79 H Pulse Oximetry 97 Oxygen Delivery Intake/Output Intake/Output: Intake & Output 08/22/24 08/23/24 08/24/24 08/25/24 23:59 23:59 23:59 23:59 Intake Total 2432.0 1569.9 1024.7 275 Balance 2432.0 1569.9 1024.7 275 Meds/Results Medications: Active Medications Generic Name Dose Route Start Last Admin Trade Name Freq PRN Reason Stop Dose Admin Acetaminophen 650 mg 08/22/24 09:24 Acetaminophen 325 Mg Tablet PO Q4H PRN Mild Pain (1-3) or Fever Apixaban 5 mg 08/31/24 09:00 Apixaban 5 Mg Tablet PO Q12HR SOPHIE Apixaban 10 mg 08/24/24 12:00 08/25/24 09:04 Apixaban 5 Mg Tablet PO 08/30/24 21:01 10 mg Q12HR SOPHIE Administration Aspirin 81 mg 08/23/24 09:00 08/25/24 09:04 Aspirin 81 Mg Enteric Tablet PO 81 mg Q48HR SOP[facility]IE Administration Cyclobenzaprine HCl 5 mg 08/23/24 09:25 08/25/24 06:52 Cyclobenzaprine Hcl 5 Mg Tablet PO 5 mg Q8HR SOPHIE Administration Dexamethasone 6 mg 08/22/24 13:50 08/25/24 09:04 Dexamethasone 2 Mg Tablet PO 08/31/24 08:01 6 mg DAILY@0800 SOPHIE Administration Niacin 1,500 mg 08/22/24 21:00 08/24/24 21:55 Niacin Sa 500 Mg Tablet PO 1,500 mg HS SOPHIE Administration Ondansetron HCl 4 mg 08/22/24 09:24 Ondansetron Inj 4 Mg/2 Ml Vial IV PUSH Q4H PRN Nausea Perflutren Lipid Microsphere 0 ml 08/22/24 13:41 Perflutren Lipid Microspheres 1.5 Ml Vial Diluted To 10 Ml Total Volume IV PUSH 08/25/24 13:41 ONCE PRN adequate visualization Protocol Polyethylene Glycol 17 gm 08/25/24 09:00 08/25/24 09:05 Polyethylene Glycol 3350 17 Gm Powd.Pack PO 17 gm QAM SOPHIE Administration Radiology Results: ITS Impressions Chest/Abdomen/Pelvis CTA 08/22/24 08:41 IMPRESSION: 1. Acute bilateral pulmonary emboli. No right heart strain. 2. Gallbladder distention, which may be secondary to fasting. Correlate with physical exam to exclude acute cholecystitis. 3. Bilateral inguinal hernias containing fat. Abdomen Ultrasound 08/23/24 07:53 IMPRESSION: 1. Diffuse hepatic steatosis.
--- NOTE | 2024-08-25 09:09 | P.DS_ITS ---
DS: Admitting Diagnosis Discharge Date 08/25/24 Admitting Diagnosis (1) Acute pulmonary embolism: Code(s): I26.99 - Other pulmonary embolism without acute cor pulmonale Status: Acute (2) Back pain: Code(s): M54.9 - Dorsalgia, unspecified Status: Acute (3) Obesity: Code(s): E66.9 - Obesity, unspecified Status: Acute (4) COVID-19 virus infection: Code(s): U07.1 - COVID-19 Status: Acute DS: Discharge Diagnosis Discharge Diagnosis (1) Acute pulmonary embolism: Code(s): I26.99 - Other pulmonary embolism without acute cor pulmonale Status: Acute (2) Back pain: Code(s): M54.9 - Dorsalgia, unspecified Status: Acute (3) Obesity: Code(s): E66.9 - Obesity, unspecified Status: Acute (4) COVID-19 virus infection: Code(s): U07.1 - COVID-19 Status: Acute DS: Summary Hospital Course Hospital Course: Acute pulmonary embolism CT showed acute bilateral pulmonary emboli. No right heart strain. Patient has back pain in past few months, exertional dyspnea that is worse in past few days on heparin drip echocardiogram 1. Complete two-dimensional, color flow and Doppler transthoracic echocardiogram is performed. 2. Left ventricular chamber dimension is normal. 3. Left ventricular systolic function is normal, estimated at 60-65%. 4. The left ventricular diastolic function is grade I diastolic dysfunction. 5. E/e' 8 is minimally elevated. 6. Left atrial chamber dimension is mildly enlarged. 7. Mild pulmonary hypertension, estimated pulmonary arterial systolic pressure is 47 mmHg. 8. There is trace pulmonic regurgitation. 9. The aortic root size at the sinus of Valsalva is borderline dilated at 4.1 cm. 10. Dilated inferior vena cava with >50% collapse upon inspiration consistent with elevated right atrial pressure, 10 mmHg. dc heparin drip and change to eliquis po Continue Eliquis p.o. 10 mg b.i.d. for 7 days and then 5 mg b.i.d. for total 3 months Gallbladder distension Patient has leukocytosis, elevated total bilirubin Need to rule out acute cholecystitis abdomen ultrasound: The gallbladder is normal in size. No gallstones or gallbladder wall thickening. on Unasyn IV Consult general surgeon for evaluation treatment, appreciate consultation. Discontinue Unasyn COVID infection No O2 desaturation No need antiviral medication now Received Decadron p.o. Obesity Patient is on metformin Follow-up A1c 5.6 and fasting glucose 134 Continue metformin Time Spent with Patient Time attestation: Total time spent providing and/or coordinating discharge services: Exam Narrative: GENERAL: Pleasant, in no acute distress. Well-nourished. - EYES: EOMI. Anicteric. - HENT: Moist mucous membranes. - LUNGS: Clear to auscultation bilateral ly, no wheezing, rhonchi, or rales. - CARDIOVASCULAR: Regular rate and rhyth m. No murmur. No JVD. - ABDOMEN: Soft, non-tender and non-dist ended. No palpable masses. - EXTREMITIES: No edema. Peripheral puls es 2+. Non-tender. - NEUROLOGIC: No focal neurological defi cits. CN II-XII grossly intact. - PSYCHIATRIC: Awake, Alert and oriented x 3. Appropriate mood and affect. - SKIN: No rashes or lesions. Warm. - LYMPH: No cervical lymphadenopathy. Discharge Plan Discharge Attending physician on discharge: Holli Malone Consulting providers: James Jiang Discharging Clinician: Holli Malone Anticipated Discharge Date/Time: 08/25/24 10:09 Patient Disposition: Home, Self-Care Activity: as tolerated Diet: as tolerated and heart healthy Patient Instructions: Apixaban (By mouth), Pulmonary Embolism (DC), Blood Thinners (DC), COVID-19 (Coronavirus Disease 2019) (DC) Patient Language: [place] Stand Alone Forms: General Discharge Information Follow-up/Referrals: Marta Loving MD [Primary Care Provider] - (Patient needs to see primary care doctor in 1 week) Discharge Medications: New Eliquis 5 mg Tablet 5 mg PO Q12HR Qty: 60 2RF Eliquis 5 mg Tablet 10 mg PO Q12HR Qty: 12 0RF cyclobenzaprine 5 mg tablet 5 mg PO TID PRN (Reason: muscle spasm) Qty: 90 0RF Continued niacin 1,000 mg tablet extended release 1,500 mg PO .COMPLEX Patient Comments: HS Rx Instructions: 1,500 mg orally ; glucosamine-chondroitin 900 mg tablet 900 mg PO DAILY Patient Comments: 2 TABS QAM aspirin [Adult Low Dose Aspirin] 81 mg tablet,delayed release (DR/EC) 81 mg PO .QOD sildenafil [Viagra] 50 mg tablet 50 mg PO DAILY PRN (Reason: sexual activity) Qty: 10 0RF Rx Instructions: administer 30 minutes to 4 hours before activity Ez Tears 1 tab-cap ophthalmic (eye) QAM (DME) BD Luer-Kandace Syringe 3 mL 21 gauge x 1 syringe See Rx Instructions .ROUTE .COMPLEX Qty: 26 3RF Dose Instruction: USE 1 SYRINGE EVERY 2 WEEKS Rx Instructions: USE 1 SYRINGE EVERY 2 WEEKS (DME) OneTouch Verio test strips Strip See Rx Instructions .Route Qty: 100 3RF Rx Instructions: As directed blood glucose control, normal [OneTouch Verio Mid Control] Solution See Rx Instructions miscellaneous .COMPLEX Qty: 1 3RF Rx Instructions: per meter instructions as directed; (DME) lancets [OneTouch Delica Plus Lancet] 33 gauge misc See Rx Instructions .Route Qty: 100 3RF Rx Instructions: As directed omega-3 acid ethyl esters 1 gram capsule See Rx Instructions .ROUTE .COMPLEX Qty: 360 1RF Dose Instruction: TAKE 2 CAPSULES TWICE A DAY DIRECTED WITH FOOD Rx Instructions: TAKE 2 CAPSULES TWICE A DAY DIRECTED WITH FOOD needle (disp) 23 gauge [Hypodermic [place]] 23 gauge x 1 needle See Rx Instructions .ROUTE .COMPLEX Qty: 7 3RF Dose Instruction: USE EVERY 2 WEEKS Rx Instructions: USE EVERY 2 WEEKS testosterone cypionate 200 mg/mL oil 200 mg IM .[id number] Qty: 10 3RF metformin 500 mg tablet extended release 24 hr 500 mg PO BID Qty: 180 1RF Date of admission: 08/22/24 09:24 Primary Care Provider: Marta Loving Admitting Provider: Holli Malone Attending physician on admission: Holli Malone Condition: Stable
--- OUTSIDE RECORDS SUMMARY | 2024-08-28 04:59 | XMS_ITS | Patient Health Summary ---
Author Organization [facility] Address [address] [place] [address] Care Team Providers Care Athletic Team Physician Name Role Phone Danelle Diaz MD Primary Care Provider [phone] Note from Formerly named [facility],non-owned Affiliates and Associated Physician Practices is amultiple site organization consisting of ambulatory clinics and hospital sitesin [place], [place], [place] and [place]. This disclosure is being madepursuant to the Care Everywhere program and may not contain all information available regarding this patient. Last updated 18.[facility] Allergies * Neomycin Medications * Be aware that medications may not be up to date on this document. Alwaysverify current medications with the patient. * niacin, Immediate Release, 50 MG tablet Take 50 mg by mouth at bedtime. * simvastatin (ZOCOR) 20 MG tablet Take 20 mg by mouth at bedtime. * Aspirin (ASPIR-81 PO) Take by mouth. * oxymetazoline (NASAL RELIEF) 0.05 % nasal spray(Started 2014) [place] 1 [place] into each nostril 2 times daily. Social History Tobacco Use Types Packs/Day Years Used Date Smoking Tobacco: Never Alcohol Use Standard Drinks/Week Comments Not Asked 0 (1 standard drink = 0.6 oz pur e alcohol) Sex and Gender Information Value Date Recorded Sex Assigned at Not on file Gender Identity Not on file Sexual Orientation Not on file Last Filed Vital Signs Vital Sign Reading Time Taken Comments Blood Pressure 140/88 2014 11:02 AM DIRECTOR PROCESS ENGINEERING Pulse 99 2014 11:02 AM DIRECTOR PROCESS ENGINEERING Temperature 36.7 ??C (98.1 ??F) 2014 11:[address] Respiratory Rate 16 2014 11:02 AM DIRECTOR PROCESS ENGINEERING Oxygen Saturation 97% 2014 11:02 AM DIRECTOR PROCESS ENGINEERING Inhaled Oxygen Concentration - - Weight 127 kg (280 lb) 2014 11:02 AM DIRECTOR PROCESS ENGINEERING Height 198.1 cm (6' 6 ) 2014 11:02 AM DIRECTOR PROCESS ENGINEERING Body Mass Index 32.36 2014 11:02 AM DIRECTOR PROCESS ENGINEERING Care Teams Athletic Team Physician Relationship Specialty Start Date End Date Danelle Diaz MD [address] [place], [place] [id number] PCP - General Family Medicine 08/31/14
--- OUTSIDE RECORDS SUMMARY | 2024-08-28 04:59 | XMS_ITS | Referral Summary ---
Author Organization [facility] Address [address] [place] [address] Care Team Providers Care Center Administrator Name Role Phone Danelle Diaz MD Primary Care Provider [phone] Source Comments [facility],non-owned Affiliates and Associated Physician Practices is amultiple site organization consisting of ambulatory clinics and hospital sitesin [place], [place], [place] and [place]. This disclosure is being madepursuant to the Care Everywhere program and may not contain all information available regarding this patient. Last updated 18.[facility] Allergies Active Allergy Reactions Criticality Noted Date Comments Neomycin 2014 Medications * Be aware that medications may not be up to date on this document. Alwaysverify current medications with the patient. Medication Sig Dispensed Refills Start Date End Date Status niacin, Immediate Release, 50 MG tablet Take 50 mg by mouth at bedtime. Active simvastatin (ZOCOR) 20 MG tablet Take 20 mg by mouth at bedtime. Active Aspirin (ASPIR-81 PO) Take by mouth. Active oxymetazoline (NASAL RELIEF) 0.05 % nasal sprayIndications:Nasa l bleeding [place] 1 [place] into each nostril 2 times daily. 1 Bottle 0 2014 Active Social History Tobacco Use Types Packs/Day Years [...] Comments Blood Pressure 140/88 2014 11:02 AM LEAD RECOVERER Pulse 99 2014 11:02 AM LEAD RECOVERER Temperature 36.7 ??C (98.1 ??F) 2014 11:[address] Respiratory Rate 16 2014 11:02 AM LEAD RECOVERER Oxygen Saturation 97% 2014 11:02 AM LEAD RECOVERER Inhaled Oxygen Concentration - - Weight 127 kg (280 lb) 2014 11:02 AM LEAD RECOVERER Height 198.1 cm (6' 6 ) 2014 11:02 AM LEAD RECOVERER Body Mass Index 32.36 2014 11:02 AM LEAD RECOVERER Plan of Treatment Not on file Care Teams Center Administrator Relationship Specialty Start Date End Date Danelle Diaz MD [address] [place] [address] PCP - General Family Medicine 08/31/14
--- OUTSIDE RECORDS SUMMARY | 2024-08-28 04:59 | XMS_ITS | Clinical Summary ---
Author Organization [facility] Address [address] [place] [place] [address] Care Team Providers Care Shaft Tender Name Role Phone Danelle Diaz MD Primary Care Provider [phone] Source Comments [facility],non-owned Affiliates and Associated Physician Practices is amultiple site organization consisting of ambulatory clinics and hospital sitesin [place], [place], [place] and [place]. This disclosure is being madepursuant to the Care Everywhere program and may not contain all information available regarding this patient. Last updated 18.[facility] Allergies Active Allergy Reactions Criticality Noted Date [...] RELIEF) 0.05 % nasal sprayIndications:Nasa l bleeding [place] 1 [place] into each nostril 2 times daily. 1 [...] Blood Pressure 140/88 2014 11:02 AM DIRECTOR OF RETAIL Pulse 99 2014 11:02 AM DIRECTOR OF RETAIL Temperature 36.7 ??C (98.1 ??F) 2014 11:[address] Respiratory Rate 16 2014 11:02 AM DIRECTOR OF RETAIL Oxygen Saturation 97% 2014 11:02 AM DIRECTOR OF RETAIL Inhaled Oxygen Concentration - - Weight 127 kg (280 lb) 2014 11:02 AM DIRECTOR OF RETAIL Height 198.1 cm (6' 6 ) 2014 11:02 AM DIRECTOR OF RETAIL Body Mass Index 32.36 2014 11:02 AM DIRECTOR OF RETAIL Plan of Treatment Health Maintenance Due Date Last Done Comments COLOGUARD (AGES 45-75) - COL ON CA SCREENING 1959 COLON MONITORING 1959 COLONOSCOPY - COLON CA SCREENING 1959 CT COLONOGRAPHY - COLON CA SCREENING 1959 Colorectal Cancer Screening 1959 FIT - COLON CA SCREENING 1959 FLEX SIG - COLON CA SCREENING 1959 HIV SCREENING 1974 HEPATITIS C SCREENING 08/26/1977 DTAP/TDAP/TD VACCINES (1 - Tdap) 1978 PNEUMOCOCCAL VACCINE 50+ (1 of 1 - PCV) 2009 ZOSTER VACCINE (1 of 2) 2009 COVID-19 VACCINE ( - 2023-2 5 season) 2024 INFLUENZA VACCINE (#1) 2024 DEPRESSION SCREENING 08/06/2024 Respiratory Syncytial Virus (RSV) Vaccine Pt: or over 60 yrs (1 - 1-dose 75+ series) 2034 HEPATITIS B VACCINE Aged Out No longe r eligible based on patient's age to complete this topic HIB VACCINE Aged Out No longer eligi ble based on patient's age to complete this topic HPV VACCINE Aged Out No longer eligi ble based on patient's age to complete this topic MENINGOCOCCAL (Group B) VACCINE Aged Out No longer eligible based on patient's age to complete this topic MENINGOCOCCAL VACCINE Aged Out No gary karen eligible based on patient's age to complete this topic PNEUMOCOCCAL VACCINE Aged Out No long er eligible based on patient's age to complete this topic Care Teams Shaft Tender Relationship Specialty Start Date End Date Danelle Diaz MD [address] [place] [address] PCP - General Family Medicine 08/31/14
== END 2024-08-25 11:46 | disposition home or self-care (01) ==
LOC: ANHED 09:25 → ANH3MEDSUR 10:09
PROVIDERS: Nurse Practitioner Acute Care; Admitting Provider Hospitalist; Emergency Provider Emergency Medicine; PCP Family Medicine; Visit Provider Hospitalist
DX: U07.1 COVID-19 (principal); I26.99 Other pulmonary embolism without acute cor pulmonale; R93.2 Abnormal findings on diagnostic imaging of liver and biliary tract; M54.9 Dorsalgia, unspecified; E66.9 Obesity, unspecified; Z68.34 Body mass index [BMI] 34.0-34.9, adult; E87.1 Hypo-osmolality and hyponatremia; I10 Essential (primary) hypertension; E78.2 Mixed hyperlipidemia; K21.9 Gastro-esophageal reflux disease without esophagitis; M13.852 Other specified arthritis, left hip; G62.9 Polyneuropathy, unspecified; N40.0 Benign prostatic hyperplasia without lower urinary tract symptoms; Z87.891 Personal history of nicotine dependence; Z79.82 Long term (current) use of aspirin; Z79.84 Long term (current) use of oral hypoglycemic drugs; Z79.899 Other long term (current) drug therapy
CPT/HCPCS: 36415; 71275; 74177; 76705; 80053; 81003; 82948; 83605; 83690; 83735; 84145; 84484; 85025; 85610; 85730; 87637; 93005; 93306; 96361; 96365; 96366; 96368; 96375; 99285; A9270; G0378; J0295; J1644; J2270; J2405; J3475; J7030; J8540; Q9967

== ENCOUNTER 2024-12-31 13:45 | Outpatient (CLI) | payer BC, SELFPAY ==
--- OUTSIDE RECORDS SUMMARY | 2024-12-31 13:55 | XMS_ITS | Clinical Summary ---
Author Organization [facility] Address [address] [place] [address] Care Team Providers Care Physical Chemistry Teacher Name Role Phone Danelle Diaz MD Primary Care Provider [phone] Source Comments [facility],non-owned Affiliates and Associated Physician Practices is amultiple site organization consisting of ambulatory clinics and hospital sitesin [place], [place], [place] and [place]. This disclosure is being madepursuant to the Care Everywhere program and may not contain all information available regarding this patient. Last updated 18.[facility] Allergies Active Allergy Reactions Criticality Noted Date Comments Neomycin 2014 Medications * Be aware that medications may not be up to date on this document. Alwaysverify current medications with the patient. niacin, Immediate Release, 50 MG tablet Take 50 mg by mouth at bedtime. Active simvastatin (ZOCOR) 20 MG tablet Take 20 mg by mouth at bedtime. Active Aspirin (ASPIR-81 PO) Take by mouth. Active oxymetazoline (NASAL RELIEF) 0.05 % nasal sprayIndication s:Nasal bleeding [place] 1 [place] into each nostril 2 times daily. 1 Bottle 0 2014 Active Social History Tobacco Use Types Packs/Day Years Used Date Smoking Tobacco: Never Alcohol Use Standard Drinks/Week Comments Not Asked 0 (1 standard drink = 0.6 oz pur e alcohol) Sex and Gender Information Value Date Recorded Sex Assigned at Not on file Legal Sex Male 5:48 AM RACE STARTER Gender Identity Not on file Sexual Orientation Not on file Last Filed Vital Signs Vital Sign Reading Time Taken Comments Blood Pressure 140/88 2014 11:02 AM RACE STARTER Pulse 99 2014 11:02 AM RACE STARTER Temperature 36.7 C (98.1 F) 2014 11:02 AM RACE STARTER Respiratory Rate 16 2014 11:02 AM RACE STARTER Oxygen Saturation 97% 2014 11:02 AM RACE STARTER Inhaled Oxygen Concentration - - Weight 127 kg (280 lb) 2014 11:02 AM RACE STARTER Height 198.1 cm (6' 6) 2014 11:02 AM RACE STARTER Body Mass Index 32.36 2014 11:02 AM RACE STARTER Plan of Treatment Health Maintenance Due Date [...] VACCINE ( - 2023-2 5 season) 2024 DEPRESSION SCREENING 08/06/2024 INFLUENZA VACCINE (Season Ended) 2025 Respiratory Syncytial Virus (RSV) Vaccine Pt: or [...] to complete this topic MENINGOCOCCAL (Group B) VACC INE SHARED DECISION-MAKING Aged Out No longer eligibl e based on patient's age to complete this topic MENINGOCOCCAL GROUPS A/C/Y/W VACCINE Aged Out No longer eligible b ased on patient's age to complete this topic Insurance RADHA Care Teams Physical Chemistry Teacher Relationship Specialty Start Date End Date Danelle Diaz MD [address] [place] [address] PCP - General Family Medicine 08/31/14
[2024-12-31 15:18] LABS: Basophils Percent Auto 0.6 % (0.2-1.2); Eosinophils Absolute Auto 0.1 K/mm3 (0-0.3); Hematocrit 46.8 % (42.0-52.0); Hemoglobin 15.3 g/dL (14.0-18.0); Immature Granulocyte Absolute 0.04 K/mm3 (0.00-0.031); Immature Granulocyte Percent A 0.6 % (0-0.5); Lymphocytes Absolute Auto 1.94 K/mm3 (0.9-3.2); Lymphocytes Percent Auto 29.6 % (18.3-44.2); Mean Corpuscular HGB Conc 32.7 g/dl (32-36); Mean Corpuscular Hemoglobin 29.9 pg (26-34); Mean Corpuscular Volume 91.4 fl (80-100); Mean Platelet Volume 9.4 fl (7.4-10.4); Monocytes Absolute Auto 0.6 K/mm3 (0.1-0.6); Monocytes Percent Auto 9.2 % (2.6-8.5); Neutrophils Absolute Auto 3.8 K/mm3 (1.3-6.7); Platelet Count Result 291 k/mm3 (150-375); Red Blood Count 5.12 M/mm3 (4.6-6.20); Red Cell Distribution Width 12.1 % (11.5-14.5); White Blood Count 6.6 K/mm3 (4.5-10.0)
[2024-12-31 15:30] LABS: Albumin Level 4.5 g/dL (3.5-5.1)
[2024-12-31 15:33] LABS: Anion Gap 9 mmol/L (4-12); Blood Urea Nitrogen 19 mg/dL (9-20); Calcium 9.2 mg/dL (8.4-10.2); Carbon Dioxide 29 mmol/L (22-30); Chloride 103 mmol/L (98-107); Estimated Glomerular Filt Rate > 60; Glucose 105 mg/dL (65-110); Potassium 3.9 mmol/L (3.4-5.0); Sodium 141 mmol/L (137-145)
[2024-12-31 15:43] LABS: Urine Cotinine NEGATIVE
[2024-12-31 16:57] LABS: MRSA (PCR) NOT DETECTED (NOT DETECTE)
[2024-12-31 18:39] LABS: Hemoglobin A1C 5.4 % (<5.7)
== END 2024-12-31 13:46 | disposition home or self-care (01) ==
LOC: ANHSURGERY 13:49
PROVIDERS: Anesthesiology; PCP Family Medicine; Visit Provider Orthopaedic Surgery
DX: M17.12 Unilateral primary osteoarthritis, left knee (principal); R73.03 Prediabetes; Z01.818 Encounter for other preprocedural examination
CPT/HCPCS: 36415; 80048; 80307; 82040; 83036; 85025; 87641

== ENCOUNTER 2025-01-19 02:01 | Day surgery (SDC) | payer BC, SELFPAY ==
--- NOTE | 2024-12-31 13:48 | PC.NURSE ---
Report to the Outpatient Waiting Room, entrance under the green pavilion located off [facility], at time _12:30 PM on date __01/19/25 . Planned Procedure Time: ___2:30 PM .? Time changes happen often and if your time is changed the preop area will call you the afternoon before. - You and your visitor will be asked to self-screen and do not enter if you have any COVID symptoms. Please call surgeon if you need to reschedule. - A mask is optional within the hospital at this time. Patients may have clear liquids (water, carbonated beverages, clear teas, apple juice) until 3 hours prior to surgery ( 11:30 AM) with a maximum of 20 ounces. - No food from midnight until time of surgery and no smoking, or chewing tobacco (or any form of nicotine). No chewing gum, candy or mints. Take only the following medications with a SIP of water on the morning of surgery: NONE DO NOT STOP ANY OF YOUR OTHER PRESCRIPTION MEDICATIONS PRIOR TO SURGERY EXCEPT THE FOLLOWING Hold all vitamins and supplements for 3 days per anesthesiologist.LAST DOSE 01/15/25 Medications to discontinue per physician _PT STATES HOLD ELIQUIS 3 DAYS PRE OP PER DR WU LAST DOSE 01/15/25 ____HOLD ASPIRIN 7 DAYS PRE OP PER DR WU LAST DOSE MAY TAKE TYLENOL IF NEEDED FOR PAIN Please no make-up, nail citizen of [place], hairspray, perfume, deodorant, or body powder the day of surgery.? No jewelry (including any body piercings) or valuables the day of surgery, leave them at home.? Please take a shower or bath the night before, or the morning of, surgery with an antibacterial soap.? Wear comfortable, loose fitting clothing.? Children are encouraged to wear pajamas. - Jewelry must be removed prior to entering the operating room.? Rings and piercings that are not removed may be cut off. - The hospital will not accept responsibility for valuables.? - Please leave all valuables, including medications, at home the day of surgery. If you are going home after surgery, a licensed rolloff driver must drive you home.? - NO public transportation without another adult if you receive anesthesia. - We recommend that an adult stay with you for 24 hours following discharge. - We also recommend that you do not drive, make important decision, drink alcoholic beverages, or take any drugs that were not prescribed by your health care provider for at least 24 hours after your discharge time. For Pediatric surgeries, we recommend two adults accompany the child home. Follow any additional instructions given to you from your surgeon. VERBAL AND WRITTEN instructions given to __PATIENT AND WIFE and asked if any additional questions and then verbalized understanding. Patient advised to call surgeon office or pre surgery nurse liaison [phone] if any additional questions.
[2024-12-31 13:53] VITALS: BMI 33.0
[2024-12-31 14:41] VITALS: BP 131/78; PULSE 71; RESP 18; TEMP 36.6; O2SAT 99
[2025-01-19] VITALS (11 sets, daily range): BP systolic 115–165; BP diastolic 73–107; PULSE 63–87; RESP 10–18; TEMP 36.2–36.4; O2SAT 93–100
--- NOTE | ~2025-01-19 | XR_ITS ---
EXAMINATION: [id number] DATE: 01/19/2025 17:40 CDT INDICATION: Postoperative evaluation TECHNIQUE: 2 views left knee FINDINGS: There is a left total knee arthroplasty with patellar resurfacing in expected position. Gerard bcutaneous gas with fluid and air in the joint, consistent with recent surgery. No evidence of peripr osthetic fracture. IMPRESSION: Expected perioperative appearance of a left total knee arthroplasty, as detailed above Reviewed, dictated and finalized at location A. IMPRESSION: Expected perioperative appearance of a left total knee arthroplasty , as detailed above
--- OUTSIDE RECORDS SUMMARY | 2025-01-19 02:03 | XMS_ITS | Clinical Summary ---
Author Organization [facility] Address [address] [place] [address] Care Team Providers Care Distributed Generation Project Manager Name Role Phone Danelle Diaz MD Primary Care Provider [phone] Source Comments [facility],non-owned Affiliates and Associated Physician Practices is amultiple site organization consisting of ambulatory clinics and hospital sitesin [place], [place], [place] and [place]. This disclosure is being madepursuant to the Care Everywhere program and may not contain all information available regarding this patient. Last updated 18.[facility] Allergies Active Allergy Reactions Criticality Noted Date [...] RELIEF) 0.05 % nasal sprayIndication s:Nasal bleeding [place] 1 [place] into each nostril 2 times daily. 1 Bottle 0 2014 Active Social History Tobacco Use Types Packs/Day Years Used Date Smoking Tobacco: Never Alcohol Use Standard Drinks/Week Comments Not Asked 0 (1 standard drink = 0.6 oz pur e alcohol) Sex and Gender Information Value Date Recorded Sex Assigned at Not on file Legal Sex Male 5:48 AM AIR QUALITY INSTRUMENT SPECIALIST Gender Identity Not on file Sexual Orientation Not on file Last Filed Vital Signs Vital Sign Reading Time Taken Comments Blood Pressure 140/88 2014 11:02 AM AIR QUALITY INSTRUMENT SPECIALIST Pulse 99 2014 11:02 AM AIR QUALITY INSTRUMENT SPECIALIST Temperature 36.7 C (98.1 F) 2014 11:02 AM AIR QUALITY INSTRUMENT SPECIALIST Respiratory Rate 16 2014 11:02 AM AIR QUALITY INSTRUMENT SPECIALIST Oxygen Saturation 97% 2014 11:02 AM AIR QUALITY INSTRUMENT SPECIALIST Inhaled Oxygen Concentration - - Weight 127 kg (280 lb) 2014 11:02 AM AIR QUALITY INSTRUMENT SPECIALIST Height 198.1 cm (6' 6) 2014 11:02 AM AIR QUALITY INSTRUMENT SPECIALIST Body Mass Index 32.36 2014 11:02 AM AIR QUALITY INSTRUMENT SPECIALIST Plan of Treatment Health Maintenance Due Date [...] complete this topic Insurance RADHA Care Teams Distributed Generation Project Manager Relationship Specialty Start Date End Date Danelle Diaz MD [address] [place] [address] PCP - General Family Medicine 08/31/14
--- NOTE | 2025-01-19 11:55 | WPDHPUPDATE1 ---
History and Physical Update Update Date/Time: 01/19/25 11:55 History and Physical has been reviewed, including an updated exam of the patient. There are NO changes in the patient's condition. Risks, benefits, and alternatives have been discussed and questions answered. Patient agrees to proceed with procedure.
[2025-01-19] MEDS: ACETAMINOPHEN 500 MG TABLET 1000 MG PO (13:11)
[2025-01-19] MEDS: LACTATED RINGERS 1,000 ML 30 ML IV CONT ×2 (13:20→16:54)
[2025-01-19] MEDS: TRANEXAMIC ACID 1,000MG/ISO100 1,000 MG/100 ML BAG 200 MG IVPB (13:21)
[2025-01-19 13:28] LABS: Glucose Point of Care 93 mg/dl (65-105)
--- NOTE | 2025-01-19 14:04 | WPDANESEPPF ---
Anes - Initial Pre Proc Eval Procedure: Operation Date: 01/19/25 14:30 Proposed Procedures p Left Custom Total Knee Arthroplasty - Yvon Hall MD Date/Time: 01/19/25 14:04 Surgeon: Yvon Hall MD Pre Op Diagnosis: primary oa left knee Patient Data Age: 64 Gender: M Height: 1.98 m Weight: 129.6 kg Last Vital Signs Temp 36.6 C 12/31/24 14:41 Pulse 71 12/31/24 14:41 Resp 18 12/31/24 14:41 BP 131/78 12/31/24 14:41 Pulse Ox 99 12/31/24 14:41 O2 Del Method Room Air 12/31/24 14:41 Allergies Allergy/AdvReac Type Severity Reaction Status Date / Time neomycin Allergy Severe Swelling Verified 12/31/24 13:54 of the Eye ezetimibe AdvReac Intermediate muscle and Verified 12/31/24 13:54 leg aches, dizziness Xmbwtka-SGG-LgY Reductase AdvReac Intermediate muscle pain Verified 12/31/24 13:54 Inhibitor Home Medications ?Medication ?Instructions ?Recorded ?Confirmed ?Type antiarthritic combination no.2 900 900 mg PO DAILY 11/11/21 12/31/24 History mg tablet (glucosamine-chondroitin) Ez Tears 1 tab-cap ophthalmic (eye) QAM 04/19/22 12/31/24 History aspirin 81 mg tablet,delayed 81 mg PO .QOD 12/08/22 12/31/24 History release (Adult Low Dose Aspirin) niacin 1,000 mg tablet,extended 1,500 mg PO .COMPLEX 08/30/23 12/31/24 History release syringe with needle 3 mL 21 gauge #26 ea 01/09/24 12/31/24 Rx x 1 (BD Luer-Kandace Syringe) OneTouch Verio Mid Control (blood See Rx Instructions miscellaneous 01/15/24 12/31/24 Rx glucose control, normal) .COMPLEX #1 ea blood sugar diagnostic (OneTouch #100 ea 01/15/24 12/31/24 Rx Verio test strips) lancets 33 gauge (OneTouch Delica #100 ea 01/15/24 12/31/24 Rx Plus Lancet) needle (disp) 23 gauge 23 gauge x See Rx Instructions .Route 04/22/24 12/31/24 Rx 1 (Hypodermic [place]) .COMPLEX #7 ea apixaban 5 mg tablet (Eliquis) 5 mg PO Q12HR #180 tabs 09/10/24 12/31/24 Rx omega-3 acid ethyl esters 1 gram See Rx Instructions .Route 10/13/24 12/31/24 Rx capsule .COMPLEX #360 caps sildenafil 50 mg tablet (Viagra) 50 mg PO DAILY PRN sexual activity 10/15/24 12/31/24 Rx #30 tabs empagliflozin 10 mg tablet 10 mg PO DAILY #90 tabs 11/06/24 12/31/24 Rx (Jardiance) acetaminophen 500 mg tablet 1,000 mg PO Q6H PRN pain 12/31/24 12/31/24 History (Acetaminophen Pain Relief) metformin 500 mg tablet,extended 500 mg PO BID #180 tabs 01/12/25 Rx release 24 hr oxycodone-acetaminophen 5 mg-325 1 - 2 tablet PO Q4-6H PRN pain #30 01/19/25 Rx mg tablet tabs prednisone 5 mg tablet 5 mg PO DAILY 3 weeks #21 tabs 01/19/25 Rx Laboratory Tests 01/19/25 13:25 POC Capillary Glucose 93 mg/dl (65-105) Patient hx anesthesia problems: none Family hx anesthesia problems: none Results Review: All pre-operative results and documents have been reviewed as part of the pre-operative evaluation. [facility] Past Medical History Medical History (Updated 01/19/25 @ 13:01 by VALERIA Mccain) Orthopedic aftercare for joint replacement COVID-19 virus infection COVID-19 Acute bronchitis Cutaneous horn Skin tag, acquired BPPV (benign paroxysmal positional vertigo) Orthopedic aftercare Tear of meniscus of left knee Primary osteoarthritis of left knee Left knee pain Arthritis of left hip Left hip pain Neuropathy l hand Benign labile hypertension Elevated prolactin level Enlarged prostate without lower urinary tract symptoms (luts) Gastro-esophageal reflux disease without esophagitis Hypogonadism in male Mixed hyperlipidemia statin intolerance, zetia intolerance Surgical History Surgical History (Updated 01/19/25 @ 13:01 by VALERIA Mccain) Hx of colonoscopy 05.17.12 History of meniscectomy of left knee (~11/25/21) Medial H/O medial meniscus repair of right knee H/O adenoidectomy Hx of tonsillectomy H/O eye surgery Family History Family History Father Diabetes mellitus Hypertension Family history of elevated blood lipids Grandparent Diabetes mellitus Family history of cardiovascular disease Cerebrovascular accident Mother Hypertension Family history of cardiovascular disease Acute myocardial infarction Family history of Alzheimer's disease Family history of coronary artery disease Social History Social History Smoking packs per day: 1 Smoking cigarettes per day: 20.0 Years smoked: 10 Smoking pack-years: 10.00 Smoking status: Former smoker Second hand tobacco smoke exposure: No Additional smoking assessment comments: PT DENIES ALL FORMS OF TOBACCO USE Alcohol intake: current Alcohol use details: occasionally Substance use: never Substance use type: does not use Do You Feel Safe in your Home?: Yes Lack of Transportation: No Lack of Food: Never True Current Housing: I Have Housing Concerned About Future Housing: No Difficulty Paying Gas/Electric Bills: No Difficulty Paying for Meds: No Currently Unemployed: No Education: Associate Degree Difficulty w/ Childcare or Family Care: No Living arrangements: with family Spiritual care concerns: No Anes - Eval Final PreProcedure Day of Procedure 01/19/25 14:04 Patient weight: obese Heart: regular rate and rhythm Lungs: clear to auscultation Airway: Mallampati scale class II Neurological: alert and oriented Last oral intake: >/= 8 hours ASA classification: III Emergent: no Anesthetic plan: proceed Anesthesia type and monitoring: general LMA and standard monitoring Results Review: All pre-operative results and documents have been reviewed as part of the pre-operative evaluation. Informed Consent: The patient's anesthetic plan and its attendant risks and benefits were discussed with the patient/family/POA. Questions were solicited and answers provided to the satisfaction of the patient/family/POA.
[2025-01-19] MEDS: ceFAZolin 3 GM/D5W 100 ML 100 ML IVPB (14:53)
[2025-01-19] MEDS: SODIUM CHLORIDE 0.9% IV 37.7 ML, MORPHINE SULFATE INJ (*CRX) 2 MG, ROPivacaine HCL 1% 2... INFILTRATE (15:40)
--- NOTE | 2025-01-19 16:53 | W.PM.PROC2 ---
Procedure Note - Detailed Date of Procedure 01/19/25 Pre-op Diagnosis Left knee degenerative arthritis. Post-op Diagnosis Same Procedure Performed Total knee arthroplasty, custom left. Surgeon Yvon Hall MD Anesthesia General Findings Large stature. Excellent bone quality. No releases required. Description of Procedure Preoperative antibiotics were given. The limb was prepped and draped in the usual sterile fashion with a well-padded tourniquet high on the thigh. The limb was exsanguinated and the tourniquet inflated to 300 mmHg. A longitudinal incision was created just medial to the patella. A trivector approach to the knee was performed. Arthrotomy was taken down through the joint capsule. No significant releases were initially taken. The femur was exposed and the F1 jig was applied. The coring tool was used to remove the cartilage for the F2 jig to sit flush with the bone. The jig was pinned and the distal cut carefully taken. Caliper measurements confirmed appropriate bony resections according to the preoperative templated plan. The F4 cutting jig for the femur was applied, at the standard rotation. The AP and anterior chamfer cuts were taken. The F5 jig was applied and the posterior chamfer cuts were taken. The tibia was prepared using the T1 jig, after removing cartilage for the jig contact points. Proper alignment was checked with the alignment grace. The tibia was cut using the T1u guide. Gap balancing was performed. Gap measurements were taken and the knee was trialed. Excellent alignment and soft tissue balancing was confirmed. The posterior cruciate ligament was preserved. The lateral facet patellectomy performed. Meniscal remnants were removed. The trial components were assembled. Excellent range of motion and proper soft tissue balancing were confirmed throughout the full range of motion. Patellar tracking was excellent. The knee was copiously irrigated periodically throughout the procedure. The real implants were cemented into position. Excess cement was carefully removed. The wound was closed in layers with interrupted #1 Vicryl suture, 2-0 strata fix suture, 0 strata fix suture, 2-0 strata fix suture. Steri-Strips placed on the skin with the knee flexed. Sterile bulky dressing applied. The patient was brought to the recovery room in stable condition. There were no complications. Implants Conformis Custom total knee arthroplasty. Cemented. Cruciate retaining. 6A insert. Estimated Blood Loss 50 Drains No Complications No immediate complications Condition Stable Disposition PACU [facility] Billing Surgery - Charge Forward: Surgery Billing
[2025-01-19 17:24] LABS: Glucose Point of Care 162 mg/dl (65-105)
[2025-01-19] MEDS: oxyCODONE/ACETAMINOPHEN (*CRX) 10-325 MG TABLET 1 TAB PO (19:05)
[2025-01-19] MEDS: ACETAMINOPHEN 325 MG TABLET 650 MG PO ×2 (19:05→23:37)
[2025-01-19] MEDS: SODIUM CHLORIDE 0.9% IV 1,000 ML 125 ML IV CONT (19:05)
[2025-01-19] MEDS: predniSONE 5 MG TABLET PO (19:05)
[2025-01-19] MEDS: SENNA/DOCUSATE SODIUM TABLET 2 TAB PO (19:05)
[2025-01-19] MEDS: HYDROmorphone HCL INJ (*CRX) 2 MG/ML VIAL 0.5 MG IV PUSH (20:48)
[2025-01-19] MEDS: FAMOTIDINE 20 MG TABLET PO (20:49)
[2025-01-19] MEDS: ONDANSETRON INJ 4 MG/2 ML VIAL IV PUSH (22:01)
[2025-01-19] MEDS: ceFAZolin 2 GM/D5W 50 ML 2 GM/50 ML BAG IVPB (23:37)
[2025-01-20 00:14] VITALS: BP 118/70; PULSE 61; RESP 16; TEMP 36.3; O2SAT 98
[2025-01-20 01:50] VITALS: BMI 33.0
[2025-01-20 04:14] VITALS: BP 119/78; PULSE 60; RESP 18; TEMP 36.3; O2SAT 97
[2025-01-20] MEDS: ACETAMINOPHEN 325 MG TABLET 650 MG PO (06:17)
[2025-01-20 06:37] LABS: Basophils Percent Auto 0.2 % (0.2-1.2); Hematocrit 43.8 % (42.0-52.0); Hemoglobin 14.4 g/dL (14.0-18.0); Immature Granulocyte Absolute 0.07 K/mm3 (0.00-0.031); Immature Granulocyte Percent A 0.6 % (0-0.5); Lymphocytes Absolute Auto 0.89 K/mm3 (0.9-3.2); Lymphocytes Percent Auto 7.6 % (18.3-44.2); Mean Corpuscular HGB Conc 32.9 g/dl (32-36); Mean Corpuscular Hemoglobin 29.9 pg (26-34); Mean Corpuscular Volume 90.9 fl (80-100); Mean Platelet Volume 9.6 fl (7.4-10.4); Monocytes Absolute Auto 0.8 K/mm3 (0.1-0.6); Monocytes Percent Auto 6.5 % (2.6-8.5); Neutrophils Percent Auto 85.1 % (45.5-73.1); Platelet Count Result 268 k/mm3 (150-375); Red Blood Count 4.82 M/mm3 (4.6-6.20); Red Cell Distribution Width 11.6 % (11.5-14.5); White Blood Count 11.8 K/mm3 (4.5-10.0)
[2025-01-20] MEDS: ceFAZolin 2 GM/D5W 50 ML 2 GM/50 ML BAG IVPB (06:44)
[2025-01-20 06:51] LABS: Anion Gap 8 mmol/L (4-12); Blood Urea Nitrogen 17 mg/dL (9-20); Calcium 8.7 mg/dL (8.4-10.2); Carbon Dioxide 26 mmol/L (22-30); Chloride 100 mmol/L (98-107); Estimated CRCL calculation 120 ml/min; Estimated Glomerular Filt Rate > 60; Glucose 122 mg/dL (65-110); Sodium 134 mmol/L (137-145)
[2025-01-20 08:00] VITALS: PULSE 60; RESP 18; O2SAT 100
[2025-01-20 08:14] VITALS: BP 136/76; PULSE 60; RESP 18; TEMP 36.2; O2SAT 100
[2025-01-20] MEDS: SENNA/DOCUSATE SODIUM TABLET 2 TAB PO (09:31)
[2025-01-20] MEDS: polyethylene glycoL 3350 17 GM POWD.PACK PO (09:31)
[2025-01-20] MEDS: FAMOTIDINE 20 MG TABLET PO (09:31)
[2025-01-20] MEDS: ASPIRIN 81 MG ENTERIC TABLET PO (09:31)
[2025-01-20] MEDS: EMPAGLIFLOZIN 10 MG TABLET PO (09:31)
== END 2025-01-20 12:04 | disposition home or self-care (01) ==
LOC: ANHSURGERY 12:59 → ANH3MEDSUR 18:41
PROVIDERS: Physician Assistant Surgical; PCP Family Medicine; Visit Provider Orthopaedic Surgery
PROC: (CPT 27447; principal; 2025-01-19 14:30)
DX: M17.12 Unilateral primary osteoarthritis, left knee (principal); Z87.891 Personal history of nicotine dependence; E66.9 Obesity, unspecified; Z68.33 Body mass index [BMI] 33.0-33.9, adult; Z79.84 Long term (current) use of oral hypoglycemic drugs
CPT/HCPCS: 27447; 36415; 73560; 80048; 82948; 85025; 86850; 86900; 86901; 97110; 97161; 97165; A9270; C1713; C1776; J0171; J0690; J1100; J1171; J1885; J2003; J2250; J2270; J2405; J2704; J2795; J3010; J7030; J7120; J7512

== ENCOUNTER 2025-06-19 18:58 | Emergency (ER) | payer BC, SELFPAY ==
[2025-06-19] VITALS (17 sets, daily range): BP systolic 114–212; BP diastolic 74–98; PULSE 81–91; RESP 16–20; TEMP 36.4; O2SAT 94–100
--- NOTE | ~2025-06-19 | XR_ITS ---
XR chest 1V portable INDICATION:SOB . REFERENCE: None FINDINGS: A single AP of the chest demonstrates normal heart size. The lungs are clear. There is no evidence of pneumothorax or pleural effusion. IMPRESSION: No acute pulmonary findings. Reviewed, dictated and finalized at location S. AVER APPRENTICE DECORATIVE
--- NOTE | ~2025-06-19 | CT_ITS ---
CTA chest PE abdomen pel HISTORY:R mid thoracic pain, hx of PE. urinary symptoms . COMPARISON: None. TECHNIQUE: Following the noncontrasted [employer] team member, axial images of the thorax were obtained following infusion of 100 cc of Isovue 370. Post-processing on an independent workstation was performed to reconstruct MIP images for evaluation of the thoracic vasculature. FINDINGS: There is no pulmonary embolism, aortic dissection, thoracic aneurysm or pericardial fluid. The lung parenchyma is clear. No pleural effusion or pneumothorax is noted. There is no axillary, mediastinal or hilar adenopathy. Limited evaluation of the upper abdomen demonstrates no gross abnormalities. Review of bone windows demonstrates no osteoblastic or lytic lesions. IMPRESSION: There is no pulmonary embolism, aortic dissection, pericardial fluid or thoracic aneurysm. No acute lung findings. CTA chest PE abdomen pel INDICATION:R mid thoracic pain, hx of PE. urinary symptoms . COMPARISON: None. TECHNIQUE: Axial images of the abdomen and pelvis were obtained following infusion of 100 mL Isovue 370. Dose optimization technique was utilized. FINDINGS: The lung bases are clear. The liver parenchyma is unremarkable. No intrahepatic mass or ductal dilatation is evident. The gallbladder is unremarkable. The pancreas and spleen are normal in appearance. The adrenal glands are symmetric in size. The kidneys demonstrate symmetric uptake and excretion of contrast. No cystic mass is evident. There is no solid mass. There is no hydronephrosis. The stomach and bowel loops are unremarkable. The appendix is not visualized however no secondary signs of appendicitis are identified. The bladder and rectum are normal. No free intraperitoneal fluid or air is evident. There is no significant retroperitoneal lymphadenopathy. The aorta, visceral vessels and renal arteries demonstrate normal caliber and patency. The lower thoracic and lumbar vertebrae are in normal alignment. IMPRESSION: No acute abnormality is noted in the abdomen and pelvis. All CT scans at this facility are performed using low dose modulation techniques as appropriate to perform exam including the following: automated exposure control; use of iterative reconstruction technique; adjustment of the mA and/or kV according to patient size (this includes techniques or standardized protocols for targeted exams where dose is matched to indication/reason for exam). Reviewed, dictated and finalized at location S. RINTENDENT LOCAL IMPRESSION: There is no pulmonary embolism, aortic dissection, pericardial fluid or thoraci c aneurysm. No acute lung findings. CTA chest PE abdomen pel INDICATION:R mid thoracic pain, hx of PE. urinary symptoms . COMPARISON: None. TECHNIQUE: Axial images of the abdomen and pelvis were obtained following infu brittanie of 100 mL Isovue 370. Dose optimization technique was utilized. FINDINGS: The lung bases are clear. The liver parenchyma is unremarkable. No intrahepatic mass or ductal dilatation is evident. The gallbladder is unremarkable. The pancreas and spleen are margarito l in appearance. The adrenal glands are symmetric in size. The kidneys demonstrate symmetric uptake and excretion of contrast. No cystic m ass is evident. There is no solid mass. There is no hydronephrosis. The stomach and bowel loops are unremarkable. The appendix is not visualized ho wever no secondary signs of appendicitis are identified. The bladder and rectum are normal. No free intraperitoneal fluid or air is evid ent. There is no significant retroperitoneal lymphadenopathy. The aorta, visceral vessels and renal arteries demonstrate normal caliber and p atency. The lower thoracic and lumbar vertebrae are in normal alignment. IMPRESSION: No acute abnormality is noted in the abdomen and pelvis. All CT scans at this facility are performed using low dose modulation techniqu es as appropriate to perform exam including the following: automated exposure c ontrol; use of iterative reconstruction technique; adjustment of the mA and/or kV according to patient size (this includes techniques or standardized protocol s for targeted exams where dose is matched to indication/reason for exam).
--- NOTE | 2025-06-19 19:02 | ECG_ITS ---
Test Date: 2025-06-19 19:21:09 Measurements Intervals [place] Rate: 84 P: 11 [place]: 132 QRS: -2 QRSD: 85 T: 30 QT: 349 QTc: 415 Interpretive Statements SINUS RHYTHM Compared to ECG 08/22/2024 07:46:56 No significant changes Electronically Signed On 06-20-2025 10:51:47 BODY ENGINEER by Oscar Poole D.O
[2025-06-19 19:41] LABS: Hematocrit 51.8 % (42.0-52.0); Hemoglobin 17.0 g/dL (14.0-18.0); Immature Granulocyte Percent A 0.4 % (0-0.5); Lymphocytes Absolute Auto 2.00 K/mm3 (0.9-3.2); Mean Corpuscular HGB Conc 32.8 g/dl (32-36); Mean Corpuscular Hemoglobin 29.0 pg (26-34); Mean Corpuscular Volume 88.2 fl (80-100); Nucleated Red Blood Cells Absolute Auto 0.000 K/mm3 (0.0-0.012); Nucleated Red Blood Cells Perc 0.0 % (0.0-0.2); Platelet Count Result 290 k/mm3 (150-375); Red Blood Count 5.87 M/mm3 (4.6-6.20); White Blood Count 8.0 K/mm3 (4.5-10.0)
--- NOTE | 2025-06-19 19:56 | ED_ITS ---
HPI - General Adult General Chief complaint: Shortness of Breath/Dyspnea Stated complaint: back pain, SOB Time Seen by Provider: 06/19/25 19:18 History of Present Illness HPI narrative: This is a 64-year-old male with history of the PE presenting for midthoracic pain on the right. He describes the pain as a back spasm. It is sharp, it is worse with movement. He says it makes him feel short of breath. Patient says he had a PE in August of this year and was on 6 months of Eliquis. He is no longer taking anticoagulation. He denies any frontal chest pain. he denies fevers or productive cough. He denies abdominal pain. He denies lower extremity edema. Patient went to a chiropractor earlier today with no relief. Patient states that he has urinary urgency and frequency. No dysuria. Related Data Home Medications ?Medication ?Instructions ?Recorded ?Confirmed ?Last Taken ?Type antiarthritic combination no.2 900 900 mg PO DAILY 03/2703/13/25 01/18/25 History mg tablet (glucosamine-chondroitin) Ez Tears 1 tab-cap ophthalmic (eye) Q AM 04/19/22 03/13/25 05/13/22 History aspirin 81 mg tablet,delayed 81 mg PO .QOD 12/08/2201/12/25 History release (Adult Low Dose Aspirin) niacin 1,000 mg tablet,extended 1,500 mg PO .COMPLEX 0 08/30/23 03/13/25 Unknown History release acetaminophen 500 mg tablet 1,000 mg PO Q6H PRN pain 0 12/31/24 03/13/25 Unknown History (Acetaminophen Pain Relief) Allergies Allergy/AdvReac Type Severity Reaction Status Date / Time neomycin Allergy Severe Swelling Verified 03/13/25 08:50 of the Eye ezetimibe AdvReac Intermediate muscle and Verified 03/13/25 08:50 leg aches, dizziness Ezqenrs-ZZH-EtO Reductase AdvReac Intermediate muscle pain Verified 03/13/25 08:50 Inhibitor PMFSH Past Medical History Medical History Orthopedic aftercare for joint replacement COVID-19 virus infection COVID-19 Acute bronchitis Cutaneous horn Skin tag, acquired BPPV (benign paroxysmal positional vertigo) Orthopedic aftercare Tear of meniscus of left knee Primary osteoarthritis of left knee Left knee pain Arthritis of left hip Left hip pain Neuropathy l hand Benign labile hypertension Elevated prolactin level Enlarged prostate without lower urinary tract symptoms (luts) Gastro-esophageal reflux disease without esophagitis Hypogonadism in male Mixed hyperlipidemia statin intolerance, zetia intolerance Surgical History Surgical History Hx of colonoscopy 05.17.12 History of meniscectomy of left knee (~11/25/21) Medial H/O medial meniscus repair of right knee H/O adenoidectomy Hx of tonsillectomy H/O eye surgery Family History Family History Father Family history of elevated blood lipids Diabetes mellitus Hypertension Lung cancer Back pain with history of spinal surgery Grandparent Family history of cardiovascular disease Diabetes mellitus Cerebrovascular accident Mother Family history of cardiovascular disease Acute myocardial infarction Family history of Alzheimer's disease Family history of coronary artery disease Hypertension Social History Social History Smoking packs per day: 1 Smoking cigarettes per day: 20.0 Years smoked: 10 Smoking pack-years: 10.00 Smoking status: Former smoker Second hand tobacco smoke exposure: No Smoking end date: 01/05/92 Additional smoking assessment comments: PT DENIES ALL FORMS OF TOBACCO USE Alcohol intake: current Drinks per week: 1 Alcohol use details: occasionally Substance use: never Substance use type: does not use Do You Feel Safe in your Home?: Yes Lack of Transportation: No Lack of Food: Never True Current Housing: I Have Housing Concerned About Future Housing: No Difficulty Paying Gas/Electric Bills: No Difficulty Paying for Meds: No Currently Unemployed: No Education: Associate Degree Difficulty w/ Childcare or Family Care: No Living arrangements: with family Spiritual care concerns: Yes Exam 2 Narrative: APPEARANCE: Patient looks uncomfortable Head: atraumatic. EYES: EOMI, NOSE: Atraumatic NECK: Trachea midline RESPIRATORY: clear to auscultation, speaking in full sentences CARDIOVASCULAR: RRR, no peripheral edema ABDOMINAL: soft nontender, no CVA tenderness MUSCULOSKELETAl: no tenderness along parallel spinal muscles. Pain is reproducible when the patient sits up NEURO: Alert. Moving 4/4 extremities SKIN:: Warm, dry. Normal color PSYCHIATRIC: Normal affect Course Vital Signs Vital signs: Vital Signs Temperature 97.6 F 06/19/25 18:59 Pulse Rate 91 06/19/25 18:59 Respiratory Rate 18 06/19/25 18:59 Blood Pressure 212/88 H 06/19/25 18:59 Pulse Oximetry 98 06/19/25 18:59 Oxygen Delivery Room Air 06/19/25 18:59 Temperature 97.6 F 06/19/25 18:59 Pulse Rate 91 06/19/25 19:39 Respiratory Rate 18 06/19/25 18:59 Blood Pressure 212/88 H 06/19/25 18:59 Pulse Oximetry 98 06/19/25 18:59 Oxygen Delivery Room Air 06/19/25 19:39 Medical Decision Making MDM Narrative Medical decision making narrative: -Course: 64-year-old male presenting with sharp pain over the mid thoracic back muscles. On exam he can reproduce the pain with movement. He has a history of PE. He is also complaining of urinary frequency. CTA chest abdomen pelvis was ordered to evaluate for PE, lung pathology as well as kidney stones. CT was unremarkable. Laboratory studies were within normal limits. Initial troponin was undetectable and his symptoms have been ongoing for greater than 3 hours prior to arrival, and are not consistent w/ acs. No need for a 3 hour trop. Patient was treated with NSAIDs muscle relaxers and a lidocaine patch. On re-evaluation the patient's pain has improved.He will be discharged with appropriate prescriptions. Given return precautions for worsening pain. Primary care follow-up. -DDX includes but is not limited to: back spasm, kidney stone, PE, pyelo, pneumonia, ACS -Co-morbidities complicating care: history of PE, -Hx from independent Sources: bedside -Independent interpretation of studies: labs and imaging reviewed Vital Signs Vital Signs: Vital Signs Temperature 97.6 F 06/19/25 18:59 Pulse Rate 91 06/19/25 18:59 Respiratory Rate 18 06/19/25 18:59 Blood Pressure 212/88 H 06/19/25 18:59 Pulse Oximetry 98 06/19/25 18:59 Oxygen Delivery Room Air 06/19/25 18:59 Temperature 97.6 F 06/19/25 18:59 Pulse Rate 91 06/19/25 19:39 Respiratory Rate 18 06/19/25 18:59 Blood Pressure 212/88 H 06/19/25 18:59 Pulse Oximetry 98 06/19/25 18:59 Oxygen Delivery Room Air 06/19/25 19:39 Lab Data 06/19/25 19:35 06/19/25 19:35 Labs: Lab Results 06/19/25 06/19/25 Range/Units 19:35 19:59 WBC 8.0 (4.5-10.0) K/mm3 RBC 5.87 (4.6-6.20) M/mm3 Hgb 17.0 (14.0-18.0) g/dL Hct 51.8 (42.0-52.0) % MCV 88.2 (80-100) fl MCH 29.0 (26-34) pg MCHC 32.8 (32-36) g/dl RDW 11.9 (11.5-14.5) % Plt Count 290 (150-375) k/mm3 MPV 9.0 (7.4-10.4) fl Immature Gran % (Auto) 0.4 (0-0.5) % Neut % (Auto) 61.7 (45.5-73.1) % Lymph % (Auto) 24.9 (18.3-44.2) % [place] % (Auto) 10.8 H (2.6-8.5) % Eos % (Auto) 1.6 (0-4.4) % Baso % (Auto) 0.6 (0.2-1.2) % Lymph # (Auto) 2.00 (0.9-3.2) K/mm3 [place] # (Auto) 0.9 H (0.1-0.6) K/mm3 Eos # (Auto) 0.1 (0-0.3) K/mm3 Baso # (Auto) 0.1 (0.0-0.1) K/mm3 Abs Immat Gran (auto) 0.03 (0.00-0.031) K/mm3 Absolute Neuts (auto) 5.0 (1.3-6.7) K/mm3 Absolute Nucleated RBC 0.000 (0.0-0.012) K/mm3 Nucleated RBC % 0.0 (0.0-0.2) % Sodium 136 L (137-145) mmol/L Potassium 4.7 (3.4-5.0) mmol/L Chloride 100 (98-107) mmol/L Carbon Dioxide 29 (22-30) mmol/L Anion Gap 7 (4-12) mmol/L BUN 19 (9-20) mg/dL Creatinine 0.89 (0.7-1.3) mg/dL Estim Creat Clear Calc 109 ml/min Estimated GFR > 60 (59 - ) Glucose 113 H (65-110) mg/dL Calcium 9.2 (8.4-10.2) mg/dL Total Bilirubin 1.0 (0.2-1.3) mg/dL AST 29 (17-59) U/L ALT 21 (6-50) U/L Alkaline Phosphatase 84 (38-126) U/L Troponin I < 0.012 (0.000-0.034) ng/mL NT-Pro-B Natriuret Pep < 20 (19.9-100) pg/mL Total Protein 7.7 (6.3-8.2) g/dL Albumin 4.6 (3.5-5.1) g/dL Urine Color Yellow (Yellow) Urine Appearance Clear (Clear) Urine pH 5.5 (5.0-9.0) Ur Specific [place] 1.027 (1.001-1.035) Urine Protein Negative (Negative) mg/dL Urine Glucose (UA) 3+ H (Negative) mg/dL Urine Ketones Trace H (Negative) mg/dL Ur Blood (Man) Negative (Negative) Urine Nitrate Negative (Negative) Urine Bilirubin Negative (Negative) Urine Urobilinogen 1.0 (<2.0) mg/dL Leukocyte Esterase Rfl Negative (Negative) ARGELIA/UL Influenza A (RT-PCR) Negative (Negative) Influenza B (RT-PCR) Negative (Negative) RSV (RT-PCR) Negative (Negative) SARS-CoV-2 RNA (RT-PCR) Negative (Negative) Discharge Plan Discharge Clinical Impression: Back muscle spasm Patient Disposition: Home Condition: Stable Instructions: Antibiotic Form, Muscle Spasm (ED) Additional Instructions: You were seen in the emergency department for back spasms. Please use Motrin, Tylenol, Robaxin and lidocaine patches for your symptoms. He can use hot or cold if the a improved her symptoms. If you develop worsening pain, or any new symptoms such as chest pain or difficulty breathing please return to ED for re- evaluation. Patient Language: Yoruba Prescriptions: No Action niacin 1,000 mg tablet extended release 1,500 mg PO .COMPLEX Patient Comments: HS Rx Instructions: 1,500 mg orally ; glucosamine-chondroitin 900 mg tablet 900 mg PO DAILY Patient Comments: 2 TABS QAM aspirin [Adult Low Dose Aspirin] 81 mg tablet,delayed release (DR/EC) 81 mg PO .QOD Ez Tears 1 tab-cap ophthalmic (eye) QAM acetaminophen [Acetaminophen Pain Relief] 500 mg tablet 1,000 mg PO Q6H PRN (Reason: pain) (DME) OneTouch Verio test strips Strip See Rx Instructions .Route Qty: 100 3RF Rx Instructions: As directed blood glucose control, normal [OneTouch Verio Mid Control] Solution See Rx Instructions miscellaneous .COMPLEX Qty: 1 3RF Rx Instructions: per meter instructions as directed; (DME) lancets [OneTouch Delica Plus Lancet] 33 gauge misc See Rx Instructions .Route Qty: 100 3RF Rx Instructions: As directed omega-3 acid ethyl esters 1 gram capsule See Rx Instructions .ROUTE .COMPLEX Qty: 360 3RF Dose Instruction: TAKE 2 CAPSULES TWICE A DAY WITH FOOD DIRECTED Rx Instructions: TAKE 2 CAPSULES TWICE A DAY WITH FOOD DIRECTED sildenafil [Viagra] 50 mg tablet 50 mg PO DAILY PRN (Reason: sexual activity) Qty: 30 3RF Rx Instructions: administer 30 minutes to 4 hours before activity metformin 500 mg tablet extended release 24 hr 500 mg PO BID Qty: 180 1RF Jardiance 10 mg tablet 10 mg PO DAILY Qty: 90 3RF needle (disp) 23 gauge [Hypodermic [place]] 23 gauge x 1 needle See Rx Instructions .ROUTE .COMPLEX Qty: 7 3RF Dose Instruction: USE EVERY 2 WEEKS Rx Instructions: USE EVERY 2 WEEKS to inject testosterone (DME) BD Luer-Kandace Syringe 3 mL 21 gauge x 1 syringe See Rx Instructions .ROUTE .COMPLEX Qty: 26 3RF Dose Instruction: USE 1 SYRINGE EVERY 2 WEEKS Rx Instructions: USE 1 SYRINGE EVERY 2 WEEKS testosterone cypionate 200 mg/mL oil 100 mg IM .[id number] Qty: 10 3RF Follow-up/Referrals: Marta Loving MD [Primary Care Provider, [facility]]
[2025-06-19 20:06] LABS: Add Urine Microscopic? NO; Appearance Urine Clear (Clear); Glucose Urine UA 3+ mg/dL (Negative); Leukocyte Esterase Ur Negative LEU/UL (Negative); Nitrate Urine Negative (Negative); Specific Grav Ur 1.027 (1.001-1.035)
[2025-06-19 20:08] LABS: Alanine Aminotransferase 21 U/L (6-50); Albumin Level 4.6 g/dL (3.5-5.1); Alkaline Phosphatase 84 U/L (38-126); Anion Gap 7 mmol/L (4-12); Aspartate Amino Transferase 29 U/L (17-59); Bilirubin,Total 1.0 mg/dL (0.2-1.3); Blood Urea Nitrogen 19 mg/dL (9-20); Calcium 9.2 mg/dL (8.4-10.2); Carbon Dioxide 29 mmol/L (22-30); Chloride 100 mmol/L (98-107); Estimated CRCL calculation 109 ml/min; Estimated Glomerular Filt Rate > 60; Glucose 113 mg/dL (65-110); Potassium 4.7 mmol/L (3.4-5.0); Sodium 136 mmol/L (137-145); Total Protein 7.7 g/dL (6.3-8.2)
[2025-06-19] MEDS: ACETAMINOPHEN 500 MG TABLET 1000 MG PO (20:34)
[2025-06-19] MEDS: diazePAM INJ (*CRX) 10 MG/2 ML SYRINGE 5 MG IV PUSH (20:35)
--- OUTSIDE RECORDS SUMMARY | 2025-06-19 20:36 | XMS_ITS | Clinical Summary ---
Author Organization [facility] Address [address] [place] [address] Care Team Providers Care [employer] Leader Name Role Phone Danelle Diaz MD Primary Care Provider [phone] Source Comments [facility],non-owned Affiliates and Associated Physician Practices is amultiple site organization consisting of ambulatory clinics and hospital sitesin [place], [place], [place] and [place]. This disclosure is being madepursuant to the Care Everywhere program and may not contain all information available regarding this patient. Last updated 18.[facility] Allergies Active Allergy Reactions Criticality Noted Date [...] RELIEF) 0.05 % nasal sprayIndication s:Nasal bleeding [place] 1 [place] into each nostril 2 times daily. 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 Gender Identity Not on file Sexual Orientation Not on file Last Filed Vital Signs Vital Sign Reading Time Taken Comments Blood Pressure 140/88 2014 11:02 AM KITCHEN WORK SUPERVISOR Pulse 99 2014 11:02 AM KITCHEN WORK SUPERVISOR Temperature 36.7 C (98.1 F) 2014 11:02 AM KITCHEN WORK SUPERVISOR Respiratory Rate 16 2014 11:02 AM KITCHEN WORK SUPERVISOR Oxygen Saturation 97% 2014 11:02 AM KITCHEN WORK SUPERVISOR Inhaled Oxygen Concentration - - Weight 127 kg (280 lb) 2014 11:02 AM KITCHEN WORK SUPERVISOR Height 198.1 cm (6' 6) 2014 11:02 AM KITCHEN WORK SUPERVISOR Body Mass Index 32.36 2014 11:02 AM KITCHEN WORK SUPERVISOR Plan of Treatment Health Maintenance Due Date [...] 2009 ZOSTER VACCINE (1 of 2) 2009 DEPRESSION SCREENING 08/06/2024 COVID-19 VACCINE (1 - 2023-2 5 season) 2025 INFLUENZA VACCINE (#1) 2025 Respiratory Syncytial Virus (RSV) Vaccine Pt: [...] complete this topic Insurance RADHA Care Teams [employer] Leader Relationship Specialty Start Date End Date Danelle Diaz MD [address] [place] [address] PCP - General Family Medicine 08/31/14
[2025-06-19 20:41] LABS: Influenza A QL RT-PCR Negative (Negative); Influenza B QL RT-PCR Negative (Negative); RSV RNA, RT-PCR Negative (Negative); SARS-CoV-2 RNA PCR Negative (Negative)
[2025-06-19 20:48] LABS: NT Pro B Type Natriuretic Pept < 20 pg/mL (19.9-100); Troponin I < 0.012 ng/mL (0.000-0.034)
[2025-06-19] MEDS: LIDOCAINE 5% PATCH 1 PATCH TRANSDERM (21:42)
[2025-06-19] MEDS: KETOROLAC 15 MG/ML VIAL (*BKC) IV PUSH (21:43)
== END 2025-06-19 22:15 | disposition home or self-care (01) ==
PROVIDERS: Student in an Organized Health Care Education/Training Program; Emergency Provider Emergency Medicine; PCP Family Medicine
DX: M62.830 Muscle spasm of back (principal); Z20.822 Contact with and (suspected) exposure to COVID-19; E78.2 Mixed hyperlipidemia; N40.0 Benign prostatic hyperplasia without lower urinary tract symptoms; M17.12 Unilateral primary osteoarthritis, left knee; M16.12 Unilateral primary osteoarthritis, left hip; K21.9 Gastro-esophageal reflux disease without esophagitis; G62.9 Polyneuropathy, unspecified; Z86.16 Personal history of COVID-19; Z86.711 Personal history of pulmonary embolism; Z87.891 Personal history of nicotine dependence; Z79.82 Long term (current) use of aspirin; R06.02 Shortness of breath
CPT/HCPCS: 36415; 71045; 71275; 74177; 80053; 81003; 83880; 84484; 85025; 87637; 93005; 96374; 96375; 99284; A9270; J1885; J3360; Q9967